=== PATIENT | male | born 1935 | race Caucasian/White ===

== ENCOUNTER 2019-03-25 10:05 | Emergency (ER) | payer OTHER, SELFPAY ==
--- NOTE | ~2019-03-25 | XR_ITS ---
EXAMINATION: XR hip BI 2V w AP pelvis DATE: 03/25/2019 11:39 INDICATION: Hip pain. Fall. TECHNIQUE: An anteroposterior view of the pelvis and 2 views of each hip were obtained. COMPARISON: Right hip radiograph 08/18/2016 FINDINGS: There is levoscoliosis and severe spondylosis of lumbar spine. No fracture. There is modera te osteoarthritis of the hips. IMPRESSION: 1. Moderate osteoarthritis of the hips. Reviewed, dictated and finalized at location A. RV[employer]
--- NOTE | ~2019-03-25 | XR_ITS ---
EXAMINATION: XR knee LT 3V DATE: 03/25/2019 11:39 INDICATION: Left knee pain. Fall. TECHNIQUE: 3 views of left knee were obtained. COMPARISON: Left knee radiographs 09/13/2018 FINDINGS: Bone alignment is normal. No fracture. There is severe osteoarthritis of medial compartment and moderate osteoarthritis of lateral and patellofemoral compartments. There is a moderate-sized kn ee joint effusion. IMPRESSION: 1. Severe left knee osteoarthritis. 2. Moderate-sized left knee joint effusion. Reviewed, dictated and finalized at location A. RMATION TECHNOLOGY DIRECTOR
--- NOTE | ~2019-03-25 | XR_ITS ---
EXAMINATION: XR chest 2V EXAM DATE: 03/25/2019 11:39 INDICATION: Multiple falls. Weakness. Pain. TECHNIQUE: Frontal and lateral projections of the chest obtained and reviewed. Comparison is made to prior examination from 08/21/2018. FINDINGS: Sternotomy wires are present without findings to suggest sternal dehiscence. Mild cardiome [place]. There is pulmonary vascular congestion. There is no pneumothorax suspected. There is aortic art erial sclerosis. There are bony degenerative changes. IMPRESSION: Cardiomegaly, pulmonary vascular congestion. Reviewed, dictated and finalized at location B. AL RIDE ATTENDANT
--- NOTE | ~2019-03-25 | CT_ITS ---
EXAMINATION: CT abdomen pelvis w con EXAM DATE: 03/25/2019 14:14 INDICATION: Left lower quadrant pain. Fall. Urinary tract infection. TECHNIQUE: Spiral CT of the abdomen and pelvis was performed following intravenous injection of 100 m L Omnipaque 350. Axial, coronal and sagittal images were reviewed. The dose-length product (DLP) fo r this examination was 1035.23 mGy-cm. The exposure was tailored according to patient size (auto mA exposure control), and iterative reconstruction (ASIR) was used as additional dose reduction techniqu e. There is no prior study for comparison. FINDINGS: There is colonic interposition. There is heterogeneous 4 cm left adrenal mass, indetermina te. Gallbladder is unremarkable. No biliary obstruction. Portal and splenic veins are patent. Kid neys enhance symmetrically. There is no hydronephrosis. Bilateral renal cysts largest off the lower pole of the right kidney measuring 5 cm. The prostate is unremarkable. The bladder is unremarkable. There is no retroperitoneal or pelvic lymphadenopathy. There is moderate scattered arteriosclerot ic disease. The appendix is normal. The stomach and small bowel are unremarkable. There is moderate amount of c olonic stool. No free intraperitoneal gas. The heart is normal in size. There are no pericardial or pleural effusions. Small amount of bibasilar atelectasis or pneumonia. There are sternotomy wire s. There are left 10th-12th rib fractures posterolaterally, probably subacute but check for point te nderness. IMPRESSION: 1. No acute intra-abdominal findings. 2. Mild bibasilar atelectasis or possibly pneumonia. 3. Left adrenal 4 cm heterogeneous mass; recommend MRI for further evaluation if no contraindication . 4. Left 10th-12 acute nondisplaced rib fractures, could be subacute but check for point tenderness. Reviewed, dictated and finalized at location B. OW PROCESSOR IMPRESSION: 1. No acute intra-abdominal findings. 2. Mild bibasilar atelectasis or possibly pneumonia. 3. Left adrenal 4 cm heterogeneous mass; recommend MRI for further evaluation if no contraindication. 4. Left 10th-12 acute nondisplaced rib fractures, could be subacute but check for point tenderness.
[2019-03-25 10:29] VITALS: BP 118/73; PULSE 85; RESP 16; TEMP 36.7; O2SAT 98
--- NOTE | 2019-03-25 10:45 | ED.GENADULT ---
HPI - General Adult General Chief complaint: Unspecified <Monica Ceballos PA-C - Last Filed: 03/25/19 16:59> Stated complaint: PAIN AFTER FALL <Monica Ceballos PA-C - Last Filed: 03/25/19 16:59> Time Seen by Provider: 03/25/19 10:21 <Monica Ceballos PA-C - Last Filed: 03/25/19 16:59> Source: patient and family <JAMES Silva Last Filed: 03/25/19 16:59> Mode of arrival: wheelchair <JAMES Silva Last Filed: 03/25/19 16:59> Limitations: no limitations <JAMES Silva Last Filed: 03/25/19 16:59> History of Present Illness HPI narrative: This is a 83 year old male that presents to the ER after a fall today. Patient reports he had just gotten dressed and stood up to walk out of the room. Reports he lost his balance and fell onto his left knee. Reports since he has had left knee pain and bilateral hip pain. Son reports that patient frequently gets UTIs that cause him to be unsteady. Reports he frequently falls. He lives at home alone, but has family that check in on him often. Patient reports some LLQ abdominal pain that has been intermittent for the last couple weeks. Denies hitting his head, loss of consciousness, fever, chest pain, shortness of breath, vomiting, vision changes, numbness or weakness. <Monica Ceballos PA-C - Last Filed: 03/25/19 16:59> Related Data Home medications: Home Medications Medication Instructions Recorded Confirmed atenolol 25 mg tablet 25 mg PO DAILY 12/27/18 atorvastatin 10 mg tablet 10 mg PO DAILY 12/27/18 diltiazem HCl 60 mg 60 mg PO BID 12/27/18 capsule,extended release 12 hr losartan 50 mg-hydrochlorothiazide 1 tablet PO DAILY 12/27/18 12.5 mg tablet metformin 500 mg tablet 500 mg PO DAILY 12/27/18 omeprazole 10 mg capsule,delayed 10 mg PO DAILY 12/27/18 release oxybutynin chloride 5 mg tablet 5 mg PO DAILY 12/27/18 furosemide 20 mg tablet 20 mg PO QAM 01/07/19 atenolol 50 mg tablet 50 mg PO DAILY 01/10/19 diclofenac sodium 1 % topical gel 2 gm TOPICAL QID 01/10/19 diltiazem HCl 240 mg 240 mg PO DAILY 01/10/19 capsule,extended release 24 hr, controlled fluticasone propionate 50 2 spray NASAL DAILY 01/10/19 mcg/actuation nasal spray,suspension lancets #50 each 01/10/19 loratadine 10 mg tablet 10 mg PO DAILY 01/10/19 <Monica Ceballos PA-C - Last Filed: 03/25/19 16:59> Allergies/adverse reactions: Allergies Allergy/AdvReac Type Severity Reaction Status Date / Time Penicillins Allergy Unknown unknown Verified 03/25/19 10:32 Sulfa (Sulfonamide Allergy Unknown Unknown Verified 03/25/19 10:32 Antibiotics) sulfanilamide Allergy Unknown Unknown Verified 03/25/19 10:32 nitrofurantoin AdvReac Hallucinati Verified 03/25/19 10:32 ng <Monica Ceballos PA-C - Last Filed: 03/25/19 16:59> Review of Systems Review of Systems: Narrative: CONSTITUTIONAL: Denies fever CARDIOVASCULAR: Denies chest pain RESPIRATORY: Denies dyspnea. GASTROINTESTINAL: Reports abdominal pain. Denies nausea, vomiting, or diarrhea. GENITOURINARY: Denies dysuria or hematuria. MUSCULOSKELETAL: Reports joint pain and myalgia. Denies back pain NEUROLOGIC: Denies headache, numbness, or weakness. <Monica Ceballos PA-C - Last Filed: 03/25/19 16:59> All systems reviewed & are unremarkable except as noted in HPI and below <Monica Ceballos PA-C - Last Filed: 03/25/19 16:59> [facility] Past Medical History Medical History: Medical History (Updated 03/25/19 @ 16:53 by Monica Ceballos PA-C) Altered mental status Anemia Bilateral knee pain Degenerative joint disease of knee Dizziness Fracture of thumb, right, closed Frequent falls Gait instability Hypokalemia Old [place] (myocardial infarction) Pain of left thumb UTI (urinary tract infection) <Monica Ceballos PA-C - Last Filed: 03/25/19 16:59> Surgical History Surgical History: Surgical History (Reviewed 02/21/19 @ 08:55 by Lorena Blanco
[2019-03-25 11:00] LABS: Basophils Absolute Auto 0.1 K/mm3 (0.0-0.1); Basophils Percent Auto 0.8 % (0.2-1.2); Eosinophils Absolute Auto 0.1 K/mm3 (0-0.3); Hematocrit 37.2 % (42.0-52.0); Immature Granulocyte Absolute 0.03 K/mm3 (0.00-0.031); Immature Granulocyte Percent A 0.4 % (0-0.5); Lymphocytes Absolute Auto 0.51 K/mm3 (0.9-3.2); Mean Corpuscular HGB Conc 32.3 g/dl (32-36); Mean Corpuscular Hemoglobin 28.6 pg (26-34); Mean Corpuscular Volume 88.6 fl (80-100); Mean Platelet Volume 8.7 fl (7.4-10.4); Monocytes Absolute Auto 0.6 K/mm3 (0.1-0.6); Monocytes Percent Auto 7.8 % (2.6-8.5); Neutrophils Absolute Auto 6.1 K/mm3 (1.3-6.7); Platelet Count Result 301 k/mm3 (150-375); Red Cell Distribution Width 14.6 % (11.5-14.5); White Blood Count 7.3 K/mm3 (4.5-10.0)
[2019-03-25 11:15] LABS: Alanine Aminotransferase 13 U/L (4-50); Albumin Level 3.6 g/dL (3.5-5.1); Alkaline Phosphatase 146 U/L (38-126); Aspartate Amino Transferase 21 U/L (17-59); Bilirubin,Total 0.8 mg/dL (0.2-1.3); Blood Urea Nitrogen 21 mg/dL (9-20); Calcium 9.3 mg/dL (8.4-10.2); Carbon Dioxide 31 mmol/L (22-30); Chloride 96 mmol/L (98-107); Estimated CRCL calculation 47 ml/min; Estimated Glomerular Filt Rate 58; Glucose 160 mg/dL (75-110); Potassium 4.1 mmol/L (3.4-5.0); Sodium 136 mmol/L (137-145)
[2019-03-25 12:00] VITALS: BP 142/90; PULSE 82; RESP 16; O2SAT 98
[2019-03-25 12:42] LABS: Add Urine Microscopic? YES; Appearance Urine Clear (Clear); Bacteria Urine 1+ /hpf; Bilirubin Urine Negative (Negative); Blood Urine 1+ (Negative); Color Urine Yellow (Yellow); Glucose Urine UA Negative (Negative); Ketones Urine Negative (Negative); Leukocyte Esterase Ur 1+ LEU/UL (Negative); Mucus Urine Rare /lpf; Nitrate Urine Negative (Negative); Protein Urine 1+ mg/dL (Negative); Specific Grav Ur 1.014 (1.001-1.035); Squamous Epithelial Cell Urine Few /hpf (Few)
[2019-03-25 13:10] VITALS: BP 124/74; PULSE 78; RESP 18; O2SAT 98
[2019-03-25] MEDS: LIDOCAINE HCL 2% GEL UROJET 10 ML PKG (13:13)
[2019-03-25 15:30] VITALS: BP 118/84; PULSE 82; RESP 16; O2SAT 97
== END 2019-03-25 17:10 | disposition home or self-care (01) ==
PROVIDERS: Physician Assistant; Emergency Provider General Practice; PCP Family Medicine
DX: M25.562 Pain in left knee (principal); M25.552 Pain in left hip; M25.551 Pain in right hip; R29.6 Repeated falls; Z87.440 Personal history of urinary (tract) infections; E27.8 Other specified disorders of adrenal gland; M16.0 Bilateral primary osteoarthritis of hip; M17.12 Unilateral primary osteoarthritis, left knee; R09.89 Other specified symptoms and signs involving the circulatory and respiratory systems; I51.7 Cardiomegaly; R91.8 Other nonspecific abnormal finding of lung field; I25.2 Old myocardial infarction; Z95.1 Presence of aortocoronary bypass graft; R82.998 Other abnormal findings in urine; W18.39XA Other fall on same level, initial encounter
CPT/HCPCS: 36415; 71046; 73521; 73562; 74177; 80053; 81001; 85025; 87077; 87086; 87088; 87186; 99284; Q9967

== ENCOUNTER 2019-08-15 14:24 | Outpatient (CLI) | payer OTHER, SELFPAY ==
[2019-08-15 14:58] LABS: Basophils Percent Auto 0.5 % (0.2-1.2); Eosinophils Absolute Auto 0.3 K/mm3 (0-0.3); Hematocrit 36.2 % (42.0-52.0); Hemoglobin 11.8 g/dL (14.0-18.0); Immature Granulocyte Absolute 0.04 K/mm3 (0.00-0.031); Immature Granulocyte Percent A 0.5 % (0-0.5); Lymphocytes Absolute Auto 1.03 K/mm3 (0.9-3.2); Lymphocytes Percent Auto 12.4 % (18.3-44.2); Mean Corpuscular HGB Conc 32.6 g/dl (32-36); Mean Corpuscular Hemoglobin 28.2 pg (26-34); Mean Corpuscular Volume 86.4 fl (80-100); Mean Platelet Volume 8.6 fl (7.4-10.4); Monocytes Absolute Auto 0.8 K/mm3 (0.1-0.6); Monocytes Percent Auto 9.7 % (2.6-8.5); Neutrophils Absolute Auto 6.2 K/mm3 (1.3-6.7); Neutrophils Percent Auto 73.9 % (45.5-73.1); Platelet Count Result 319 k/mm3 (150-375); Red Blood Count 4.19 M/mm3 (4.6-6.20); White Blood Count 8.3 K/mm3 (4.5-10.0)
[2019-08-15 15:17] LABS: Alanine Aminotransferase 13 U/L (4-50); Albumin Level 3.8 g/dL (3.5-5.1); Alkaline Phosphatase 175 U/L (38-126); Aspartate Amino Transferase 25 U/L (17-59); Bilirubin,Total 0.2 mg/dL (0.2-1.3); Blood Urea Nitrogen 26 mg/dL (9-20); Carbon Dioxide 30 mmol/L (22-30); Chloride 102 mmol/L (98-107); Estimated Glomerular Filt Rate 58; Glucose 88 mg/dL (75-110); Sodium 140 mmol/L (137-145)
[2019-08-15 15:24] LABS: Hemoglobin A1C 6.2 % (<5.7)
== END 2019-08-15 14:25 | disposition home or self-care (01) ==
PROVIDERS: PCP Family Medicine; Visit Provider Physician Assistant
DX: D64.9 Anemia, unspecified (principal); E11.9 Type 2 diabetes mellitus without complications
CPT/HCPCS: 36415; 80053; 83036; 85025

== ENCOUNTER 2019-08-23 10:42 | Outpatient (CLI) | payer OTHER, SELFPAY ==
[2019-08-23 11:17] LABS: Alanine Aminotransferase 11 U/L (4-50); Albumin Level 3.8 g/dL (3.5-5.1); Alkaline Phosphatase 154 U/L (38-126); Aspartate Amino Transferase 23 U/L (17-59); Bilirubin,Total 0.6 mg/dL (0.2-1.3); Blood Urea Nitrogen 23 mg/dL (9-20); Calcium 8.9 mg/dL (8.4-10.2); Carbon Dioxide 32 mmol/L (22-30); Chloride 103 mmol/L (98-107); Estimated Glomerular Filt Rate 45; Glucose 101 mg/dL (75-110); Potassium 4.7 mmol/L (3.4-5.0); Sodium 140 mmol/L (137-145)
[2019-08-23 11:47] LABS: Thyroid Stimulating Hormone 0.381 uIU/mL (0.465-4.680)
[2019-08-23 12:04] LABS: Vitamin D 25 Hydroxy 37.8 ng/mL
[2019-08-25 20:09] LABS: GGT 10 U/L (3-70)
== END 2019-08-23 10:43 | disposition home or self-care (01) ==
PROVIDERS: PCP Family Medicine; Visit Provider Physician Assistant
DX: R60.0 Localized edema (principal); R74.8 Abnormal levels of other serum enzymes; E55.9 Vitamin D deficiency, unspecified
CPT/HCPCS: 36415; 80053; 82306; 82977; 83970; 84443

== ENCOUNTER 2019-10-15 08:57 | Inpatient (IN) | payer OTHER, SELFPAY ==
--- NOTE | ~2019-10-15 | XR_ITS ---
EXAMINATION: XR knee RT min 4V DATE: 10/15/2019 09:26 INDICATION: Right knee pain TECHNIQUE: Four views of the right knee were obtained. COMPARISON: 09/13/2018 FINDINGS: Alignment is normal. No fracture or osteochondral lesion. There is advanced tricompartmenta l osteoarthritis without significant change. A moderate size joint effusion is present. Calcified ath erosclerosis is noted. IMPRESSION: 1. Advanced tricompartmental osteoarthritis and moderate size joint effusion without acute osseous ab normality. Reviewed, dictated and finalized at location A. IMPRESSION: 1. Advanced tricompartmental osteoarthritis and moderate size joint effusion wi thout acute osseous abnormality.
[2019-10-15 09:00] VITALS: BP 131/80; PULSE 87; RESP 16; TEMP 36.6; O2SAT 98
--- NOTE | 2019-10-15 09:10 | ED.LOWEXIN ---
HPI - Extremity Injury (Lower) General Chief Complaint: Extremity Injury, Lower Stated Complaint: right knee pain History of Present Illness HPI Narrative: Long history of bilateral knee pain with known osteo arthritis. Pain on the right side increasing over the past few days, now severe. Unable to bear weight. Associated with swelling. Had arthrocentesis and steroid injection in February. No fever or injury History limited by hearing impairment. Related Data Home Medications Medication Instructions Recorded Confirmed trimethoprim 100 mg tablet 100 mg PO .qhs tablet 05/31/19 10/15/19 furosemide 20 mg PO DAILY 10/15/19 10/15/19 oxybutynin chloride 5 mg PO DAILY 10/15/19 10/15/19 Allergies Allergy/AdvReac Type Severity Reaction Status Date / Time Penicillins Allergy Unknown unknown Verified 10/15/19 09:25 sulfanilamide Allergy Unknown Unknown Verified 10/15/19 09:25 nitrofurantoin AdvReac Unknown Hallucinati Verified 10/15/19 09:25 ng Review of Systems Review of Systems: All systems reviewed & are unremarkable except as noted in HPI and below Constitutional: Constitutional: Denies fever(s) Cardiovascular: Cardiovascular: Denies chest pain Respiratory: Respiratory: Denies dyspnea Musculoskeletal: Musculoskeletal: Denies back pain Neurologic: Denies weakness [facility] Past Medical History Medical History Altered mental status Anemia Bilateral knee pain Degenerative joint disease of knee Dizziness Fracture of thumb, right, closed Frequent falls Gait instability Hypertension with heart disease Hypokalemia OAB (overactive bladder) Old [place] (myocardial infarction) Pain of left thumb Shingles UTI (urinary tract infection) Surgical History Surgical History History of coronary artery bypass graft Status post tendon repair Family History Family History Mother Family history of malignant neoplasm Sibling Family history of diabetes mellitus in first degree relative Father Family history of coronary artery disease Other Diabetes mellitus Social History Social History Smoking packs per day: 1.5 Smoking cigarettes per day: 30.0 Years smoked: 30 Smoking pack-years: 45.00 Smoking status: Former smoker Tobacco type: cigarettes Second hand tobacco smoke exposure: No Smoking end date: 02/23/77 Alcohol intake: unknown Substance use: never Substance use type: does not use Gender identity (if verbalized by the patient): Male Spiritual care concerns: No Exam Const: General: alert Orientation/consciousness: patient oriented x3 Other: Mild distress HENMT: Head: normal to inspection Resp: Effort & Inspection: normal respiratory effort Auscultation: clear to auscultation bilaterally Cardio: Rate: regular rate Rhythm: regular rhythm Skin: General skin exam: normal color Rashes: no rashes Wounds: no wounds Neuro: General: patient oriented x3, moves all extremities and no focal motor deficits Speech: normal speech Extrem: Other: Right knee warm and swollen with ballotable effusion Course Vital Signs Vital signs: Vital Signs Temperature 36.6 C 10/15/19 09:00 Pulse Rate 87 10/15/19 09:00 Respiratory Rate 16 10/15/19 09:00 Blood Pressure 131/80 10/15/19 09:00 Pulse Oximetry 98 10/15/19 09:00 Temperature 36.6 C 10/15/19 14:43 Pulse Rate 101 H 10/15/19 15:05 Respiratory Rate 20 10/15/19 15:05 Blood Pressure 143/71 H 10/15/19 15:05 Pulse Oximetry 98 10/15/19 15:05 Procedures Joint Aspiration/Injection Joint Asp./Inject. 1: Joint Aspiration Date: 10/15/19 Side of body: right Joint Aspirated: knee Skin Prep: Chlorhexidine Local Anesthetic: lidocaine 1% Amount of anest
[2019-10-15 12:44] LABS: Appearance Synovial Fluid Cloudy (Clear); Color Synovial Fluid Yellow (Colorless); Monocytes Synovial Fluid 2 %; Neutrophils Synovial Fluid 98 % (0-25); Source Synovial Fluid Synovial fluid
[2019-10-15 12:47] LABS: Crystals Synovial Fluid None Seen (None Seen)
[2019-10-15 13:39] LABS: Basophils Percent Auto 0.3 % (0.2-1.2); Eosinophils Percent Auto 0.1 % (0-4.4); Hemoglobin 12.5 g/dL (14.0-18.0); Immature Granulocyte Absolute 0.04 K/mm3 (0.00-0.031); Immature Granulocyte Percent A 0.4 % (0-0.5); Lymphocytes Absolute Auto 0.56 K/mm3 (0.9-3.2); Lymphocytes Percent Auto 5.9 % (18.3-44.2); Mean Corpuscular HGB Conc 33.8 g/dl (32-36); Mean Corpuscular Hemoglobin 29.6 pg (26-34); Mean Corpuscular Volume 87.7 fl (80-100); Mean Platelet Volume 8.6 fl (7.4-10.4); Monocytes Absolute Auto 1.2 K/mm3 (0.1-0.6); Monocytes Percent Auto 12.4 % (2.6-8.5); Neutrophils Absolute Auto 7.7 K/mm3 (1.3-6.7); Neutrophils Percent Auto 80.9 % (45.5-73.1); Platelet Count Result 263 k/mm3 (150-375); Red Blood Count 4.22 M/mm3 (4.6-6.20); Red Cell Distribution Width 14.7 % (11.5-14.5); White Blood Count 9.5 K/mm3 (4.5-10.0)
[2019-10-15 13:49] LABS: INR 1.3
[2019-10-15 13:50] LABS: Anion Gap 6 mmol/L (8-16); Blood Urea Nitrogen 16 mg/dL (9-20); Calcium 8.5 mg/dL (8.4-10.2); Carbon Dioxide 28 mmol/L (22-30); Chloride 100 mmol/L (98-107); Estimated CRCL calculation 59 ml/min; Estimated Glomerular Filt Rate > 60; Glucose 101 mg/dL (75-110); Partial Thromboplastin Time 32.8 SECONDS (22.3-36.8); Potassium 4.3 mmol/L (3.4-5.0); Sodium 134 mmol/L (137-145)
[2019-10-15 13:53] LABS: CRP 4.7 mg/dL (<1.0)
[2019-10-15 14:15] LABS: Erythrocyte Sedimentation Rate 32 mm/hr (0-20)
[2019-10-15 14:43] VITALS: BP 143/71; PULSE 93; RESP 20; TEMP 36.6; O2SAT 97
[2019-10-15 15:05] VITALS: BP 143/71; PULSE 101; RESP 20; O2SAT 98
--- NOTE | 2019-10-15 15:59 | ADMGEN ---
This patient, Jose Angel Story Jr., was admitted to 3 [facility] Surg Room 307-01 at 1539. Patient/family oriented to hospital policies and general routines including ID bracelet, bed and alarms, visiting hours, pain management, procedures, bathroom and other care routines, personal items, smoking policy, room service/diet, and visiting hours. Valuables list has been completed. Information on how to activate the Rapid Response Team has been discussed. Patient/Family are encouraged to report perceived risks to care and to ask questions if they do not understand what they are told or what they should do.
[2019-10-15 16:00] VITALS: BP 132/78; PULSE 97; RESP 18; TEMP 36.6; O2SAT 96
[2019-10-15 16:04] VITALS: BMI 25.2
[2019-10-15] MEDS: MORPHINE SULFATE 4 MG/ML INJ IV PUSH (17:01)
[2019-10-15] MEDS: LACTATED RINGERS 1,000 ML 125 ML IV CONT (17:02)
--- NOTE | 2019-10-15 21:00 | PM.IMHP ---
H&P: HPI History of Present Illness Date/Time: 10/15/19 21:00 <Oneida Montejo PA-C - Last Filed: 10/16/19 00:17> Chief complaint: Right knee pain. <Oneida Montejo PA-C - Last Filed: 10/16/19 00:17> Narrative: Jose Angel Story Jr. is a very pleasant 84-year-old male, significantly hard of hearing, with a medical history to include coronary artery disease status post CABG, peripheral vascular disease, type 2 diabetes mellitus, and hypertension who presented to the emergency department earlier today from home for evaluation of right knee pain. For the past couple of days he reports the gradual onset of right knee swelling and pain, to the point where he could barely even bend his knee without exquisite pain. He has a difficult time describing the pain, but states that is worse with any movement and palpation. He gives no significant alleviating factors, however Frontier given in the emergency department has helped quite a bit. Apparently he has had similar symptoms in the past, on the left knee, it sounds as though he was treated for septic arthritis. He does not recall injuring the area and denies fever, chills, and sweats. No nausea or vomiting. No history of gout or venous thromboembolism. <Oneida Montejo PA-C - Last Filed: 10/16/19 00:17> Review of Systems Review of Systems: Narrative: Twelve systems were reviewed with pertinent positives and negatives as per HPI. He is very hard of hearing, and can hear best in his left ear. He does wear hearing aids. No recent cold or flu symptoms. He denies chest pain shortness of breath. No cough. No nausea, vomiting, or diarrhea. It sounds as though he has frequent urinary tract infections and is on prophylactic Bactrim at nighttime. He also reports nocturia and feelings of not always emptying his bladder. No dysuria. Except as documented, all other systems were reviewed and are negative. <Oneida Montejo PA-C - Last Filed: 10/16/19 00:17> [facility] Past Medical History Medical History: Medical History (Updated 10/16/19 @ 09:09 by Arsalan Jung MD) Chronic anemia Coronary artery disease Status post 2 vessel CABG in 1997. Degenerative joint disease of knee Essential hypertension Fracture of thumb, right, closed Frequent falls Frequent urinary tract infections On prophylactic Bactrim q.h.s. Gait instability Gastroesophageal reflux disease Hearing loss Hyperlipidemia Nephrolithiasis Osteoarthritis Osteoarthritis of right knee Overactive bladder Shingles Type 2 diabetes mellitus Hemoglobin A1c was 6.2% in July 2019. <Oneida Montejo PA-C - Last Filed: 10/16/19 00:17> Surgical History Surgical History: Surgical History History of coronary artery bypass graft Two vessel CABG in 1997. Status post tendon repair <Oneida Montejo PA-C - Last Filed: 10/16/19 00:17> Family History Family History: Family History Mother Family history of malignant neoplasm Sibling Family history of diabetes mellitus in first degree relative Father Family history of coronary artery disease Other Diabetes mellitus <Oneida Montejo PA-C - Last Filed: 10/16/19 00:17> Social History Social History: Social History Social History: Surrogate decision maker: Esha Story, daughter. Code status: Full code. Smoking packs per day: 1.5 Smoking cigarettes per day: 30.0 Years smoked: 30 Smoking pack-years: 45.00 Smoking status: Former smoker Tobacco type: cigarettes Second hand tobacco smoke exposure: No Smoking end date: 02/23/77 Alcohol intake: unknown Substance use: never Substance use type: does not use Additional living arrangements comments: Resides in [place] with his sister and daughter. Additional occupation/education comment
[2019-10-15 22:00] VITALS: BP 143/80; PULSE 90; RESP 18; TEMP 37.1; O2SAT 98
[2019-10-16 06:00] VITALS: BP 142/66; PULSE 98; RESP 18; TEMP 36.9; O2SAT 97
[2019-10-16 06:34] LABS: Hemoglobin 11.9 g/dL (14.0-18.0); Mean Corpuscular HGB Conc 33.1 g/dl (32-36); Mean Corpuscular Hemoglobin 28.8 pg (26-34); Mean Corpuscular Volume 87.2 fl (80-100); Mean Platelet Volume 8.9 fl (7.4-10.4); Platelet Count Result 268 k/mm3 (150-375); Red Blood Count 4.13 M/mm3 (4.6-6.20); Red Cell Distribution Width 14.9 % (11.5-14.5); White Blood Count 10.5 K/mm3 (4.5-10.0)
[2019-10-16 07:12] LABS: Alanine Aminotransferase 10 U/L (4-50); Albumin Level 3.1 g/dL (3.5-5.1); Alkaline Phosphatase 116 U/L (38-126); Anion Gap 8 mmol/L (8-16); Aspartate Amino Transferase 19 U/L (17-59); Bilirubin,Total 0.6 mg/dL (0.2-1.3); Blood Urea Nitrogen 15 mg/dL (9-20); Calcium 8.4 mg/dL (8.4-10.2); Carbon Dioxide 26 mmol/L (22-30); Chloride 97 mmol/L (98-107); Estimated CRCL calculation 62 ml/min; Estimated Glomerular Filt Rate > 60; Glucose 107 mg/dL (75-110); Sodium 131 mmol/L (137-145)
[2019-10-16] MEDS: PANTOPRAZOLE SOD SESQUIHYDRATE 20 MG TAB PO (08:03)
[2019-10-16] MEDS: FUROSEMIDE 20 MG TABLET PO (08:03)
[2019-10-16] MEDS: ATORVASTATIN 20 MG TABLET PO (08:03)
[2019-10-16 08:04] VITALS: PULSE 91
[2019-10-16] MEDS: atenoloL 50 MG TABLET PO (08:04)
[2019-10-16] MEDS: LORATADINE 10 MG TABLET PO (08:04)
[2019-10-16] MEDS: MORPHINE SULFATE 4 MG/ML INJ IV PUSH ×3 (08:18→20:50)
[2019-10-16 08:28] LABS: Glucose Point of Care 100 (65-105)
--- NOTE | 2019-10-16 09:00 | PM.CNOR ---
Assessment and Plan Assessment and plan (1) Effusion of right knee: Code(s): M25.461 - Effusion, right knee Status: Acute (2) Osteoarthritis of right knee: Qualifiers: Osteoarthritis type: primary Qualified Code(s): M17.11 - Unilateral primary osteoarthritis, right knee Code(s): M17.11 - Unilateral primary osteoarthritis, right knee Status: Chronic Assessment and Plan: 84-year-old male with chronic osteoarthritis in his right knee and acute effusion. With his permission and using sterile technique 40 cc of cloudy yellow fluid was removed. 120 mL syringe along with a purple two were sent down to the lab for a cell count. He tolerated the injection just fine . Band-Aid applied to the site . As of this morning, culture results are pending as is the path review for evidence of crystals. Uric acid will be ordered. He is currently on IV antibiotics until this is sorted out. The aspirate had more of a an inflammatory appearance to it rather than infectious. I will follow along. Thank you for the consultation. History of Present Illness HPI Consult date: 10/16/19 Consult reason: joint pain Chief complaint: Right knee pain. Narrative: 84-year-old male who is extremely hard of hearing. All today's communication was accomplished by writing on a piece of paper because his hearing aids do not appear to be functioning properly. Essentially he has had several day history of right knee pain and swelling. Does not recall an injury prior to the onset of this. History of similar issue in the left knee in the past by his report. Looking in the chart, looks like he had injections done in the [facility] office last December. This was for arthritis . He had an aspiration done in the emergency room yesterday. The cultures are pending on that. G stain was negative. The cell count was unable to be done because of a clotted specimen . Crystals reported by the lab to be negative. Pathology review pending. Review of Systems Constitutional: Constitutional: Reports no additional constitutional complaints Eyes: Eyes: Reports no additional eye complaints ENT: Reports system reviewed and no additional complaints, except as documented Cardiovascular: Cardiovascular: Denies chest pain at rest Respiratory: Respiratory: Reports no additional respiratory complaints Gastrointestinal: Gastrointestinal: Reports no additional gastrointestinal complaints Musculoskeletal: Musculoskeletal: Reports as per HPI Integumentary/Breasts: Skin/Breast: Reports system reviewed and no additional complaints, except as docu Neurologic: Reports as per HPI Endocrine: Endocrine: Denies excessive sweating Hematologic/Lymphatic: Hematologic/Lymphatic: Denies easy bleeding and Denies easy bruising [facility] Past Medical History Medical History Chronic anemia Coronary artery disease Status post 2 vessel CABG in 1997. Degenerative joint disease of knee Essential hypertension Fracture of thumb, right, closed Frequent falls Frequent urinary tract infections On prophylactic Bactrim q.h.s. Gait instability Gastroesophageal reflux disease Hearing loss Hyperlipidemia Nephrolithiasis Osteoarthritis Overactive bladder Shingles Type 2 diabetes mellitus Hemoglobin A1c was 6.2% in July 2019. Surgical History Surgical History History of coronary artery bypass graft Two vessel CABG in 1997. Status post tendon repair Family History Family History Mother Family history of malignant neoplasm Sibling Family history of diabetes mellitus in first degree relative Father Family history of coronary artery disease Other Diabetes mellitus Social History Social History Social History: Surrogate decision maker: Esha
[2019-10-16 09:36] LABS: Appearance Synovial Fluid Cloudy (Clear); Color Synovial Fluid Yellow (Colorless); Nucleated Cell Synovial Fluid 37567 /uL (0-200); RBC Synovial Fluid 93 /uL (0-0); Source Synovial Fluid Synovial fluid
[2019-10-16 09:58] LABS: Lymphocytes Synovial Fluid 1 %; Monocytes Synovial Fluid 5 %; Neutrophils Synovial Fluid 94 % (0-25)
[2019-10-16 12:44] LABS: Glucose Point of Care 143 (65-105)
[2019-10-16 14:00] VITALS: BP 118/52; PULSE 70; RESP 22; TEMP 36.8; O2SAT 95
[2019-10-16] MEDS: ONDANSETRON INJ 4 MG/2 ML VIAL IV PUSH (15:04)
--- NOTE | 2019-10-16 16:09 | PM.IMPN ---
Progress Note: A&P Assessment and Plan (1) Inflammatory arthritis: Code(s): M19.90 - Unspecified osteoarthritis, unspecified site Status: Acute Assessment and Plan: Cell count was inaccurate after the 1st tap. Second shows 37,000 nucleated cells 94% are neutrophils. Cultures no growth. Concern for septic arthritis. CRP 47. ESR 32. He is on trimethoprim which may blunt culture results. Pain is poorly controlled. Continue morphine as needed. He also has Tylenol and Williams available as well. Will give 1 dose of Ativan to see if this helps with muscle spasms and anxiety. And this is beneficial, we may add this as a prn. Appreciate ortho input. (2) Effusion of right knee: Code(s): M25.461 - Effusion, right knee Status: Acute Assessment and Plan: Right knee xray showing advanced tricompartmental osteoarthritis and moderate size joint effusion without acute osseous abnormality. He underwent arthrocetesis in the ED with removal of 40mL of fluid from the right knee. Arthrocentesis repeated today with removal of 40mL of cloudy yellow fluid. He was started on empiric antibiotics with Rocephin and vancomycin. (3) Type 2 diabetes mellitus: Code(s): E11.9 - Type 2 diabetes mellitus without complications Status: Acute Assessment and Plan: Recent A1c was 6.2%. Glucose reviewed on 10/15 Glucose well controlled. Continue to hold metformin while hospitalized. Continue Accu-Cheks covering with sliding scale insulin. Hypoglycemic protocol available as needed. (4) Essential hypertension: Code(s): I10 - Essential (primary) hypertension Status: Acute Assessment and Plan: Blood pressures reviewed on 10/16/19 BP well controlled. Continue Atenolol, diltiazem (5) CAD (coronary artery disease): Code(s): I25.10 - Atherosclerotic heart disease of [place] coronary artery without angina pectoris Status: Chronic Assessment and Plan: Patient with stable CAD. Not on ASA but on Atenolol and Lipitor. Mumtaz follow for now. Monitor for recurrent chest pain. Subjective Date/time seen: 10/16/19 16:09 Interval history: 84yo male with DM here for right knee pain. Patient is very hard and he is having significant amount of pain in both knees. He yells out in pain during my visit. RN states patient's pain has been well controlled until this afternoon when he was moved from the chair back to bed. He was just given pain medication. He is also complaining of left knee pain now. Hx difficult to obtain. He mentions chest pain but has trouble providing details and seems to be more chronic. Exam Narrative: Exam Narrative: AF 98.2 118/52 70 22 95% ra Gen - NARD but yells out and moans frequently Chest - Clear anteriorly, nml RR CV - RRR S1/S2 Abd - Soft, NT/ND, Positive BS Ext - No pedal edema; ice packs in place both knees Psych - uncomfortable Skin - Warm and dry; knees without significant warmth and no overlying erythema Objective Data Vital Signs Vital Signs: Vital Signs - 24 hr 10/15/19 22:00 10/16/19 06:00 10/16/19 08:04 Temperature 98.8 F 98.5 F Pulse Rate 90 98 91 Respiratory Rate 18 18 Blood Pressure 143/80 H 142/66 H Pulse Oximetry 98 97 10/16/19 14:00 Temperature 98.2 F Pulse Rate 70 Respiratory Rate 22 H Blood Pressure 118/52 L Pulse Oximetry 95 Intake/Output Intake/Output: Intake & Output 10/13/19 10/14/19 10/15/19 10/16/19 23:59 23:59 23:59 23:59 Intake Total 1200 Output Total 125 850 Balance -125 350 Meds/Results Medications: Active Medications Generic Name Dose Route Start Last Admin Trade Name Freq PRN Reason Stop Dose Admin Acetaminophen 650 mg 10/16/19 00:12 Tylenol
[2019-10-16 17:46] LABS: Glucose Point of Care 139 (65-105)
[2019-10-16] MEDS: TRIMETHOPRIM 100 MG TABLET PO (20:43)
[2019-10-16 22:00] VITALS: BP 126/62; PULSE 97; RESP 20; TEMP 37.3; O2SAT 96
[2019-10-17 01:26] LABS: Glucose Point of Care 123 (65-105)
[2019-10-17 06:00] VITALS: BP 103/51; PULSE 63; RESP 20; TEMP 36.8; O2SAT 98
[2019-10-17 07:06] LABS: Estimated CRCL calculation 56 ml/min; Estimated Glomerular Filt Rate > 60
[2019-10-17] MEDS: FUROSEMIDE 20 MG TABLET PO (08:41)
[2019-10-17] MEDS: LORATADINE 10 MG TABLET PO (08:41)
[2019-10-17] MEDS: ATORVASTATIN 20 MG TABLET PO (08:41)
[2019-10-17] MEDS: atenoloL 50 MG TABLET PO (08:41)
[2019-10-17] MEDS: PANTOPRAZOLE SOD SESQUIHYDRATE 20 MG TAB PO (08:41)
[2019-10-17 08:56] LABS: Glucose Point of Care 90 (65-105)
--- NOTE | 2019-10-17 12:35 | PM.IMPN ---
Progress Note: A&P Assessment and Plan (1) Inflammatory arthritis: Code(s): M19.90 - Unspecified osteoarthritis, unspecified site Status: Acute Assessment and Plan: Cell count was inaccurate after the 1st tap. Second shows 37,000 nucleated cells 94% are neutrophils. BCx NGTD. Many WBC but no organisms. Synovial cultures NGTD. CRP 47. ESR 32. He is on trimethoprim which may blunt culture results. Pain is better controlled today. Continue morphine as needed. He also has Tylenol and [place] available as well. Appreciate ortho input. Stop abx if Cx remain negative. (2) Effusion of right knee: Code(s): M25.461 - Effusion, right knee Status: Acute Assessment and Plan: Right knee xray showing advanced tricompartmental osteoarthritis and moderate size joint effusion without acute osseous abnormality. He underwent arthrocetesis in the ED (10/14) with removal of 40mL of fluid from the right knee. Arthrocentesis repeated 10/15 with removal of 40mL of cloudy yellow fluid. He was started on empiric antibiotics with Rocephin and vancomycin. As above. (3) Type 2 diabetes mellitus: Code(s): E11.9 - Type 2 diabetes mellitus without complications Status: Acute Assessment and Plan: Recent A1c was 6.2%. Glucose reviewed on 10/16 Glucose well controlled. Continue to hold metformin while hospitalized. Continue Accu-Cheks covering with sliding scale insulin. Hypoglycemic protocol available as needed. (4) Essential hypertension: Code(s): I10 - Essential (primary) hypertension Status: Acute Assessment and Plan: Blood pressures reviewed on 10/16 BP well controlled. Continue Atenolol, diltiazem. (5) CAD (coronary artery disease): Code(s): I25.10 - Atherosclerotic heart disease of [place] coronary artery without angina pectoris Status: Chronic Assessment and Plan: Patient with stable CAD. Not on ASA but on Atenolol and Lipitor. He states his CP is more positional. Will add aspirin. Continue to monitor. Subjective Date/time seen: 10/17/19 12:35 Interval history: 84yo male with DM here for right knee pain. Patient is very hard of hearing. No issues overnight. Patient eating well. No chest pain. Pain is better controlled today. He complains more of the left knee than the right at this time. Slept well last night Exam Narrative: Exam Narrative: AF 98.3 103/51 63 20 98% ra Gen - NARD sitting up in bed eating breakfast Chest - bibasilar inspiratory crackles otherwise clear. Normal respiratory rate CV - RRR S1/S2 Abd - Soft, NT/ND, Positive BS Ext - No pedal edema; ice packs in place both knees. Able to flex bilateral knees to about 140? under his own power Psych - normal mood and affect. Skin - Warm and dry; knees without significant warmth and no overlying erythema Objective Data Vital Signs Vital Signs: Vital Signs - 24 hr 10/16/19 14:00 10/16/19 22:00 10/17/19 06:00 Temperature 98.2 F 99.2 F 98.3 F Pulse Rate 70 97 63 Respiratory Rate 22 H 20 20 Blood Pressure 118/52 L 126/62 103/51 L Pulse Oximetry 95 96 98 Intake/Output Intake/Output: Intake & Output 10/14/19 10/15/19 10/16/19 10/17/19 23:59 23:59 23:59 23:59 Intake Total 2590 910 Output Total 125 1375 600 Balance -125 1215 310 Meds/Results Medications: Active Medications Generic Name Dose Route Start Last Admin Trade Name Freq PRN Reason Stop Dose Admin Acetaminophen 650 mg 10/16/19 00:12 Tylenol Tablet PO Q6H PRN Mild Pain (1-3) or Fever Hydrocodone Bitart/Acetaminophen 1 tab 10/16/19 00:12 10/17/19 08:41 [place] 5-325 Mg PO 1 tab Q6H PRN Administ
[2019-10-17 12:57] LABS: Glucose Point of Care 111 (65-105)
[2019-10-17 14:00] VITALS: BP 122/65; PULSE 86; RESP 18; TEMP 36.7; O2SAT 96
[2019-10-17 18:03] LABS: Glucose Point of Care 138 (65-105)
[2019-10-17] MEDS: MORPHINE SULFATE 4 MG/ML INJ IV PUSH (18:11)
[2019-10-17] MEDS: ASPIRIN 81 MG CHEWABLE TABLET PO (18:12)
[2019-10-17] MEDS: TRIMETHOPRIM 100 MG TABLET PO (20:53)
[2019-10-17] MEDS: ACETAMINOPHEN 325 MG TABLET 650 MG PO (20:58)
[2019-10-17 22:00] VITALS: BP 108/51; PULSE 75; RESP 18; TEMP 37.1; O2SAT 95
[2019-10-17 22:14] LABS: Glucose Point of Care 139 (65-105)
[2019-10-18] MEDS: MORPHINE SULFATE 4 MG/ML INJ IV PUSH (02:16)
[2019-10-18 06:00] VITALS: BP 109/53; PULSE 75; RESP 18; TEMP 36.7; O2SAT 95
[2019-10-18] MEDS: atenoloL 50 MG TABLET PO (09:11)
[2019-10-18] MEDS: LORATADINE 10 MG TABLET PO (09:11)
[2019-10-18] MEDS: PANTOPRAZOLE SOD SESQUIHYDRATE 20 MG TAB PO (09:11)
[2019-10-18] MEDS: ASPIRIN 81 MG CHEWABLE TABLET PO (09:11)
[2019-10-18] MEDS: FUROSEMIDE 20 MG TABLET PO (09:12)
[2019-10-18] MEDS: ATORVASTATIN 20 MG TABLET PO (09:12)
--- NOTE | 2019-10-18 11:44 | PM.PNORT ---
Progress Note: A&P Assessment and Plan (1) Primary osteoarthritis of both knees: Code(s): M17.0 - Bilateral primary osteoarthritis of knee Status: Chronic (2) Gout attack: Qualifiers: Gout site: knee Gout etiology: unspecified cause Laterality: unspecified laterality Qualified Code(s): M10.9 - Gout, unspecified Code(s): M10.9 - Gout, unspecified Status: Acute Assessment and Plan: 84-year-old male with CPPD crystals in his right knee. His left knee is now swollen. He has the same condition there. Both knees were aspirated today with his permission and using sterile technique removing about 10 cc of slightly cloudy fluid from the right and 40 cc of turbid fluid from the left also consistent with gout. Each knee was then injected intra-articularly with 3 cc 1% lidocaine and 20 mg of Kenalog apiece and without incident. Band-Aids were applied. Follow-up p.r.n.. Subjective Subjective Date/Time Seen: 10/18/19 11:44 Principal diagnosis: Symptomatic gout right knee Interval history: 84-year-old male who has got by laboratory studies gout in his right knee. His left knee is swollen in irritable as well. Exam Const: General: cooperative, no acute distress and alert Nutritional Appearance: other Orientation/consciousness: patient oriented x3 Limitations: physical limitations ( Extremely hard of hearing) HENMT: Head: normal to inspection Ears: hearing grossly normal bilaterally Face and sinus: face symmetric Mouth: Yes moist mucous membranes Eyes: Alignment and Position: alignment normal and position normal Sclera: sclerae normal Neck: Neck: normal visual inspection and nontender Chest: Chest palpation & inspection: normal inspection of the chest Resp: Effort & Inspection: normal respiratory effort and able to speak in complete sentences GI: Inspection: other ( nondistended) Skin: General skin exam: normal color Rashes: no rashes Neuro: General: patient oriented x3 Cognition (Neuro): normal cognition Speech: normal speech Gait exam (Neuro): Other gait observations present Sensory Exam: normal sensation Extrem: General: normal to inspection and other Other: Exam of both knees reveals effusion action little bit worse on the left side now than on the right. It irritability in both knees as they aretaken through range of motion. Psych: Appearance: grossly normal Mental Status: mental status grossly normal Objective Data Vital Signs Vital Signs: Vital Signs - 24 hr 10/17/19 14:00 10/17/19 22:00 10/18/19 06:00 Temperature 98.1 F 98.7 F 98.1 F Pulse Rate 86 75 75 Respiratory Rate 18 18 18 Blood Pressure 122/65 108/51 L 109/53 L Pulse Oximetry 96 95 95 Intake/Output Intake/Output: Intake & Output 10/15/19 10/16/19 10/17/19 10/18/19 23:59 23:59 23:59 23:59 Intake Total 2590 / 2590 2720 / 2720 790 / 790 Output Total 125 / 125 1375 / 1375 1425 / 1425 1650 / 1650 Balance -125 / -125 1215 / 1215 1295 / 1295 -860 / -860 Meds/Results Medications: Active Medications Generic Name Dose Route Start Last Admin Trade Name Freq PRN Reason Stop Dose Admin Acetaminophen 650 mg 10/16/19 00:12 10/17/19 20:58 Tylenol Tablet PO 650 mg Q6H PRN Administration Mild Pain (1-3) or Fever Hydrocodone Bitart/Acetaminophen 1 tab 10/16/19 00:12 10/18/19 10:39 [place] 5-325 Mg PO 1 tab Q6H PRN Administration Pain Rated 4-6 Aspirin 81 mg 10/17/19 12:45 10/18/19 09:11 Aspirin Chewable PO 81 mg DAILY@0800 HUGO Administration Atenolol 50 mg 10/16/19 09:00 10/18/19 09:11 Tenormin PO 50 mg DAILY HUGO Administration Atorvastatin Calcium 20 mg 10/16/19 09:00 10/18/19 09:12 Lipitor PO 20 mg DAILY HUGO Administration Dextrose 12.5 gm 10/16/19 00:14 Dextrose 50% Syringe IV PUSH PRN PRN Hypoglycemia Protocol Diltiazem HCl 240 mg 10/16/19 09:00 10/18/19 09:11 Cardizem Cd PO 240 mg DAILY
[2019-10-18] MEDS: LIDOCAINE HCL 1% LOCAL INJ 20 ML VIAL 10 ML INFILTRATE (12:10)
[2019-10-18] MEDS: TRIAMCINOLONE ACET INJ SUSP 50 MG/5 ML VIAL 10 MG IM (12:10)
[2019-10-18 13:47] LABS: Vancomycin Trough 10.1 ug/mL (10.0-20.0)
[2019-10-18 14:00] VITALS: BP 105/63; PULSE 75; RESP 18; TEMP 36.9; O2SAT 94
[2019-10-18 14:05] LABS: Glucose Point of Care 100 (65-105)
--- NOTE | 2019-10-18 17:19 | PM.IMPN ---
Progress Note: A&P Assessment and Plan (1) Inflammatory arthritis: Code(s): M19.90 - Unspecified osteoarthritis, unspecified site Status: Acute Assessment and Plan: Cell count was inaccurate after the 1st tap. Second shows 37,000 nucleated cells 94% are neutrophils compatible with inflammatory arthritis. Cultures no growth. . Pain is poorly controlled.. He also has Tylenol and [place] available as well. pathology on review did reveal our phosphate crystals compatible with pseudogout injected today poor Ortho (2) Effusion of right knee: Code(s): M25.461 - Effusion, right knee Status: Acute Assessment and Plan: Right knee xray showing advanced tricompartmental osteoarthritis and moderate size joint effusion without acute osseous abnormality. He underwent arthrocetesis in the ED with removal of 40mL of fluid from the right knee. Arthrocentesis repeated today with removal of 40mL of cloudy yellow fluid. from left knee and 10 mL from right and both injected with steroids (3) Type 2 diabetes mellitus: Code(s): E11.9 - Type 2 diabetes mellitus without complications Status: Acute Assessment and Plan: Recent A1c was 6.2%. Glucose reviewed on 10/17 Glucose well controlled. Continue to hold metformin while hospitalized. Continue Accu-Cheks covering with sliding scale insulin. Hypoglycemic protocol available as needed. (4) Essential hypertension: Code(s): I10 - Essential (primary) hypertension Status: Acute Assessment and Plan: Blood pressures reviewed on 10/18/19 BP well controlled. Continue Atenolol, diltiazem (5) CAD (coronary artery disease): Code(s): I25.10 - Atherosclerotic heart disease of [place] coronary artery without angina pectoris Status: Chronic Assessment and Plan: Patient with stable CAD. Not on ASA but on Atenolol and Lipitor. Mumtaz follow for now. Monitor for recurrent chest pain. Subjective Date/time seen: 10/18/19 17:19 Interval history: Date of vist 10/17 84yo male with DM here for right knee pain. Patient is very hard of hearing. No issues overnight. Patient eating well. No chest pain. Pain is better controlled today. He complains more of the left knee than the right at this time. Slept well last night Exam Narrative: Exam Narrative: AF 98.3 106/64 74 20 98% ra Gen - NARD sitting up in bed eating breakfast Chest - clear today. Normal respiratory rate CV - RRR S1/S2 Abd - Soft, NT/ND, Positive BS Ext - No pedal edema; . Able to flex bilateral knees to about 140? under his own power Psych - normal mood and affect. Skin - Warm and dry; knees without significant warmth and no overlying erythema Objective Data Vital Signs Vital Signs: Vital Signs - 24 hr 10/17/19 22:00 10/18/19 06:00 10/18/19 14:00 Temperature 37.1 C 36.7 C 36.9 C Pulse Rate 75 75 75 Respiratory Rate 18 18 18 Blood Pressure 108/51 L 109/53 L 105/63 Pulse Oximetry 95 95 94 Intake/Output Intake/Output: Intake & Output 10/15/19 10/16/19 10/17/19 10/18/19 23:59 23:59 23:59 23:59 Intake Total 2590 2720 910 Output Total 125 1375 1425 1650 Balance -125 1215 1295 -740 Meds/Results Medications: Active Medications Generic Name Dose Route Start Last Admin Trade Name Freq PRN Reason Stop Dose Admin Acetaminophen 650 mg 10/16/19 00:12 10/17/19 20:58 Tylenol Tablet PO 650 mg Q6H PRN Administration Mild Pain (1-3) or Fever Hydrocodone Bitart/Acetaminophen 1 tab 10/16/19 00:12 10/18/19 15:57 [place] 5-325 Mg PO 1 tab Q6H PRN Administration Pain Rated 4-6 Aspirin 81 mg 10/17/19 12:45 10/18/19 09:11 Aspirin Chewable PO 81 mg DAILY@0800 HUGO Administration Ate
[2019-10-18] MEDS: INSULIN ASPART (*BKC) 100 UNITS/ML SUB-Q (18:16)
[2019-10-18 19:45] VITALS: O2SAT 97
[2019-10-18 20:14] LABS: Glucose Point of Care 254 (65-105)
[2019-10-18] MEDS: TRIMETHOPRIM 100 MG TABLET PO (20:20)
[2019-10-18 22:00] VITALS: BP 109/55; PULSE 70; RESP 16; TEMP 36.3; O2SAT 97
[2019-10-19 00:24] LABS: Glucose Point of Care 196 (65-105)
[2019-10-19 06:00] VITALS: BP 124/64; PULSE 68; RESP 18; TEMP 36.2; O2SAT 100
[2019-10-19 06:49] LABS: Glucose Synovial Fluid <10 mg/dL
[2019-10-19] MEDS: LORATADINE 10 MG TABLET PO (08:44)
[2019-10-19] MEDS: FUROSEMIDE 20 MG TABLET PO (08:44)
[2019-10-19] MEDS: ATORVASTATIN 20 MG TABLET PO (08:44)
[2019-10-19] MEDS: atenoloL 50 MG TABLET PO (08:44)
[2019-10-19] MEDS: ASPIRIN 81 MG CHEWABLE TABLET PO (08:44)
[2019-10-19] MEDS: PANTOPRAZOLE SOD SESQUIHYDRATE 20 MG TAB PO (08:44)
--- NOTE | 2019-10-19 12:13 | PM.PNORT ---
Progress Note: A&P Assessment and Plan (1) Gout attack: Qualifiers: Gout site: knee Gout etiology: unspecified cause Laterality: unspecified laterality Qualified Code(s): M10.9 - Gout, unspecified Code(s): M10.9 - Gout, unspecified Status: Acute (2) Primary osteoarthritis of both knees: Code(s): M17.0 - Bilateral primary osteoarthritis of knee Status: Chronic Assessment and Plan: 84-year-old male doing better following aspiration and injection of his knees. He can follow up with me as an outpatient. Subjective Subjective Date/Time Seen: 10/19/19 12:13 Principal diagnosis: Gout flare in both knees Interval history: 84-year-old male who had both knees aspirated and injected yesterday. He is feeling much better today. Exam Extrem: Other: Only trace effusion in each knee. No irritability as they are taken through range of motion. Objective Data Vital Signs Vital Signs: Vital Signs - 24 hr 10/18/19 14:00 10/18/19 19:45 10/18/19 22:00 Temperature 98.5 F 97.3 F L Pulse Rate 75 70 Respiratory Rate 18 16 Blood Pressure 105/63 109/55 L Pulse Oximetry 94 97 97 10/19/19 06:00 Temperature 97.1 F L Pulse Rate 68 Respiratory Rate 18 Blood Pressure 124/64 Pulse Oximetry 100 Intake/Output Intake/Output: Intake & Output 10/16/19 10/17/19 10/18/19 10/19/19 23:59 23:59 23:59 23:59 Intake Total 2590 / 2590 2720 / 2720 1930 / 1930 200 / 200 Output Total 1375 / 1375 1425 / 1425 2250 / 2250 400 / 400 Balance 1215 / 1215 1295 / 1295 -320 / -320 -200 / -200 Meds/Results Medications: Active Medications Generic Name Dose Route Start Last Admin Trade Name Freq PRN Reason Stop Dose Admin Acetaminophen 650 mg 10/16/19 00:12 10/17/19 20:58 Tylenol Tablet PO 650 mg Q6H PRN Administration Mild Pain (1-3) or Fever Hydrocodone Bitart/Acetaminophen 1 tab 10/16/19 00:12 10/19/19 07:35 [place] 5-325 Mg PO 1 tab Q6H PRN Administration Pain Rated 4-6 Aspirin 81 mg 10/17/19 12:45 10/19/19 08:44 Aspirin Chewable PO 81 mg DAILY@0800 HUGO Administration Atenolol 50 mg 10/16/19 09:00 10/19/19 08:44 Tenormin PO 50 mg DAILY HUGO Administration Atorvastatin Calcium 20 mg 10/16/19 09:00 10/19/19 08:44 Lipitor PO 20 mg DAILY HUGO Administration Dextrose 12.5 gm 10/16/19 00:14 Dextrose 50% Syringe IV PUSH PRN PRN Hypoglycemia Protocol Diltiazem HCl 240 mg 10/16/19 09:00 10/19/19 08:44 Cardizem Cd PO 240 mg DAILY HUGO Administration Furosemide 20 mg 10/16/19 09:00 10/19/19 08:44 Lasix Tablet PO 20 mg DAILY HUGO Administration Glucagon 1 mg 10/16/19 00:14 Glucagon For Inj IM PRN PRN Hypoglycemia Protocol Glucose 15 gm 10/16/19 00:14 Glutose 15 PO PRN PRN Hypoglycemia Protocol Vancomycin HCl 1,500 mg in 500 mls @ 333.333 mls/hr 10/16/19 14:00 10/18/19 17:21 Vancomycin 1,500 Mg/D5w 500 Ml IVPB Infused Q24H HUGO Infusion Dextrose 1,000 mls @ 100 mls/hr 10/16/19 00:14 Dextrose 5% 1,000 Ml IVPB PRN PRN Hypoglycemia Protocol Ceftriaxone Sodium 2 gm in 100 mls @ 200 mls/hr 10/16/19 00:30 10/18/19 20:49 Rocephin 2 Gm/D5w 100 Ml IVPB Infused HS HUGO Infusion Insulin Aspart 2 - 5 units 10/16/19 08:00 10/19/19 08:59 Novolog SUB-Q Not Given TIDWM [facility] Protocol Loratadine 10 mg 10/16/19 09:00 10/19/19 08:44 Claritin PO 10 mg DAILY HUGO Administration Morphine Sulfate 4 mg 10/15/19 13:40 10/18/19 02:16 Morphine Sulfate Inj IV PUSH 4 mg Q2H PRN Administration Pain Rated 7-10 Ondansetron HCl 4 mg 10/16/19 14:50 10/16/19 15:04 Zofran Inj IV PUSH 4 mg Q6H PRN Administration Nausea And Vomiting Pantoprazole Sodium 20 mg 10/16/19 09:00 10/19/19 08:44 Protonix PO 20 mg QAM HUGO Administration Trimethoprim 100 mg 10/16/19 21:00 10/18/19 2
[2019-10-19 13:26] LABS: Glucose Point of Care 189 (65-105)
--- NOTE | 2019-10-19 18:30 | PM.DS ---
DS: Admitting Diagnosis Admitting Diagnosis Admitting Diagnosis: Inflamatory arthritis, R/O septic joint DS: Discharge Diagnosis Discharge Diagnosis (1) Inflammatory arthritis: Code(s): M19.90 - Unspecified osteoarthritis, unspecified site Status: Acute Assessment and Plan: Cell count was inaccurate after the 1st tap. Second shows 37,000 nucleated cells 94% are neutrophils compatible with inflammatory arthritis. Cultures no growth. . pain pretty much resolved after steroid injection by Ortho.. . pathology on review did reveal our phosphate crystals compatible with pseudogout injected by Ortho day before discharge (2) Effusion of right knee: Code(s): M25.461 - Effusion, right knee Status: Acute Assessment and Plan: Right knee xray showing advanced tricompartmental osteoarthritis and moderate size joint effusion without acute osseous abnormality. He underwent arthrocetesis in the ED with removal of 40mL of fluid from the right knee. Arthrocentesis repeated 10/17 with removal of 40mL of cloudy yellow fluid. from left knee and 10 mL from right and both injected with steroids with excellent results resolution of pain and able to ambulate (3) Type 2 diabetes mellitus: Code(s): E11.9 - Type 2 diabetes mellitus without complications Status: Acute Assessment and Plan: Recent A1c was 6.2%. Glucose reviewed on 10/17 Glucose well controlled. Continue to hold metformin while hospitalized. Continue Accu-Cheks covering with sliding scale insulin while inpatient (4) Essential hypertension: Code(s): I10 - Essential (primary) hypertension Status: Acute Assessment and Plan: Blood pressures reviewed on 10/19/19 BP well controlled. Continue Atenolol, diltiazem (5) CAD (coronary artery disease): Code(s): I25.10 - Atherosclerotic heart disease of [place] coronary artery without angina pectoris Status: Chronic Assessment and Plan: Patient with stable CAD. Not on ASA but on Atenolol and Lipitor. continue same meds on discharge DS: Summary Hospital Course Hospital Course: 84-year-old white male with known coronary disease and diabetes admitted with severe pain and swelling both knees unable to ambulate. initially felt to be possibly infectious and placed on antibiotics but aspiration and synovial fluid analysis revealed crystals compatible with pseudogout and negative cultures. ortho injected and aspirated both knees and patient had excellent results within 24 hours. He was up ambulating with PT and able to be discharged home Time Spent with Patient Time attestation: Total time spent providing and/or coordinating discharge services: 35 minutes Exam Narrative: Exam Narrative: condition on discharge blood pressure 124/64 pulse 68 sat 100% on room air lungs clear CV regular rate rhythm abdomen soft nontender extremities without edema knees are not erythematous or warm full range of motion actively and passively and ambulating with PT and walker with standby assist DS: Data Data Completed and Pending Labs on day of discharge: Labs from last 24 hours 10/19/19 10/19/19 10/18/19 13:23 00:18 18:14 POC Capillary Glucose 189 H 196 H 254 H Synovial Glucose 10/15/19 11:41 POC Capillary Glucose Synovial Glucose <10 L Preliminary micro results at discharge 10/15/19 11:41 Anaerobic Culture - Preliminary Synovial Fluid Right Knee Aerobic Culture - Preliminary 10/15/19 13:23 Blood Culture - Preliminary Blood 10/15/19 13:23 Blood Culture - Preliminary Blood Discharge Plan Discharge Attending physician on discharge: Suhail Hensley Consulting providers: Arsalan Jung Chr
== END 2019-10-19 15:40 | disposition home or self-care (01) | DRG 554 ==
LOC: ANHED 10:10 → ANH3MEDSUR 14:23
PROVIDERS: Internal Medicine; Orthopaedic Surgery; Physician Assistant; Admitting Provider Family Medicine; Emergency Provider Emergency Medicine; PCP Family Medicine; Visit Provider Internal Medicine
DX: M13.861 Other specified arthritis, right knee (principal); M25.461 Effusion, right knee; M13.862 Other specified arthritis, left knee; M10.9 Gout, unspecified; E11.51 Type 2 diabetes mellitus with diabetic peripheral angiopathy without gangrene; I25.10 Atherosclerotic heart disease of native coronary artery without angina pectoris; I10 Essential (primary) hypertension; E78.5 Hyperlipidemia, unspecified; H91.90 Unspecified hearing loss, unspecified ear; Z87.891 Personal history of nicotine dependence; Z79.84 Long term (current) use of oral hypoglycemic drugs; Z79.899 Other long term (current) drug therapy; Z88.0 Allergy status to penicillin; Z88.1 Allergy status to other antibiotic agents; Z88.2 Allergy status to sulfonamides; Z95.1 Presence of aortocoronary bypass graft
CPT/HCPCS: 36415; 73564; 80048; 80053; 80202; 82565; 82945; 84157; 85025; 85027; 85610; 85652; 85730; 86140; 87040; 87070; 87075; 87205; 88108; 89051; 89060; 96365; 96366; 96367; 96374; 96375; 96376; 97110; 97116; 97161; 97165; 97535; 99285; A9270; G0378; J0696; J1815; J2060; J2270; J2405; J3301; J3370; J7120; L0140

== ENCOUNTER 2019-10-21 16:14 | Emergency (ER) | payer OTHER, SELFPAY ==
[2019-10-21 17:03] VITALS: BP 124/78; PULSE 92; RESP 20; TEMP 37.1; O2SAT 97
[2019-10-21 17:24] LABS: Add Urine Microscopic? NO; Appearance Urine Clear (Clear); Bilirubin Urine Negative (Negative); Blood Urine Negative (Negative); Color Urine Yellow (Yellow); Glucose Urine UA Negative (Negative); Ketones Urine Negative (Negative); Leukocyte Esterase Ur Negative LEU/UL (Negative); Nitrate Urine Negative (Negative); Protein Urine Negative (Negative); Urobilinogen Urine Negative mg/dL (<2.0)
[2019-10-21 21:01] VITALS: BP 151/80; PULSE 79; RESP 29; TEMP 36.8; O2SAT 100
--- NOTE | 2019-10-21 21:08 | ED.MALEGU ---
HPI - Male Genitourinary General Chief complaint: Urogenital-Male Stated complaint: r/o UTI Time Seen by Provider: 10/21/19 21:08 History of Present Illness HPI Narrative: History is limited by hearing impairment and poor historian He reports that he recieved a call from his PCP saying that he may have a UTi and he needed to come to the hospital. He is not aware of anybody taking a urine sample. He does not know why they called. He does report urinary frequency and mild discomfort when he goes. No fever, flank pain, nausea, vomiting. Related Data Home Medications Medication Instructions Recorded Confirmed trimethoprim 100 mg tablet 100 mg PO .qhs tablet 05/31/19 10/15/19 furosemide 20 mg PO DAILY 10/15/19 10/15/19 oxybutynin chloride 5 mg PO DAILY 10/15/19 10/15/19 Allergies Allergy/AdvReac Type Severity Reaction Status Date / Time Penicillins Allergy Unknown unknown Verified 10/24/19 11:18 sulfanilamide Allergy Unknown Unknown Verified 10/24/19 11:18 nitrofurantoin AdvReac Unknown Hallucinati Verified 10/24/19 11:18 ng Review of Systems Review of Systems: All systems reviewed & are unremarkable except as noted in HPI and below Constitutional: Constitutional: Denies fever(s) Cardiovascular: Cardiovascular: Denies chest pain Respiratory: Respiratory: Denies dyspnea Gastrointestinal: Gastrointestinal: Denies abdominal pain, Denies nausea and Denies vomiting Genitourinary: Genitourinary: Denies hematuria, Reports dysuria and Reports urinary frequency Musculoskeletal: Musculoskeletal: Denies back pain Neurologic: Denies weakness [facility] Past Medical History Medical History Chronic anemia Coronary artery disease Status post 2 vessel CABG in 1997. Degenerative joint disease of knee Essential hypertension Fracture of thumb, right, closed Frequent falls Frequent urinary tract infections On prophylactic Bactrim q.h.s. Gait instability Gastroesophageal reflux disease Hearing loss Hyperlipidemia Nephrolithiasis Osteoarthritis Osteoarthritis of right knee Overactive bladder Primary osteoarthritis of both knees Shingles Type 2 diabetes mellitus Hemoglobin A1c was 6.2% in July 2019. Surgical History Surgical History History of coronary artery bypass graft Two vessel CABG in 1997. Status post tendon repair Family History Family History Mother Family history of malignant neoplasm Sibling Family history of diabetes mellitus in first degree relative Father Family history of coronary artery disease Other Diabetes mellitus Social History Social History Social History: Surrogate decision maker: Esha Story, daughter. Code status: Full code. Smoking packs per day: 1.5 Smoking cigarettes per day: 30.0 Years smoked: 30 Smoking pack-years: 45.00 Smoking status: Former smoker Tobacco type: cigarettes Second hand tobacco smoke exposure: No Smoking end date: 02/23/77 Alcohol intake: unknown Substance use: never Substance use type: does not use Additional living arrangements comments: Resides in [place] with his sister and daughter. 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 Gender identity (if verbalized by the patient): Male Spiritual care concerns: No Exam Const: General: no acute distress and alert Nutritional Appearance: well nourished HENMT: Head: normal to inspection Resp: Effort & Inspection: normal respiratory effort Auscultation: clear to auscultation bilaterally Cardio: Rate: regular rate Rhythm: regular rhythm GI: Inspection: non-distended GI Palp: Yes Soft to palpation : General: Yes Bladder palpation abnormal distended and tender Skin: General skin
[2019-10-21 22:33] VITALS: BP 154/95; PULSE 84; RESP 18; O2SAT 99
--- NOTE | 2019-10-21 22:36 | PC.NURSE ---
number b16 fry catheter inserted without difficulty, draining to gravity bag with plan to change to leg bag then discharge. Son/patient given care instructions
== END 2019-10-21 22:49 | disposition home or self-care (01) ==
PROVIDERS: Emergency Provider Emergency Medicine; PCP Family Medicine
DX: R33.9 Retention of urine, unspecified (principal); I25.10 Atherosclerotic heart disease of native coronary artery without angina pectoris; I10 Essential (primary) hypertension; E11.9 Type 2 diabetes mellitus without complications; K21.9 Gastro-esophageal reflux disease without esophagitis; E78.5 Hyperlipidemia, unspecified; M17.0 Bilateral primary osteoarthritis of knee; N32.81 Overactive bladder; Z95.1 Presence of aortocoronary bypass graft; Z87.442 Personal history of urinary calculi; Z87.891 Personal history of nicotine dependence; D64.9 Anemia, unspecified; Z79.84 Long term (current) use of oral hypoglycemic drugs
CPT/HCPCS: 51702; 81003; 99283

== ENCOUNTER 2019-10-24 10:59 | Emergency (ER) | payer OTHER, SELFPAY ==
--- NOTE | ~2019-10-24 | US_ITS ---
EXAMINATION: US renal BI DATE: 10/24/2019 13:48 INDICATION: Urinary retention TECHNIQUE: Multiple grayscale and Doppler ultrasound images of the kidneys were obtained. COMPARISON: 03/25/2020 FINDINGS: The right kidney measures 11.4 x 5.5 x 4.0 cm and contains multiple cysts which measure up to 5.5 cm. The left kidney measures 11.5 x 4.9 x 3.9 cm and contains multiple cysts measure up to 3.1 cm. The kidneys demonstrate normal parenchymal echogenicity. There is mild right hydroureteronephros is. The bladder is decompressed by Espino catheter. IMPRESSION: 1. Mild right hydroureteronephrosis. Reviewed, dictated and finalized at location A.
[2019-10-24 11:13] VITALS: BP 138/100; PULSE 75; RESP 16; TEMP 37; O2SAT 100
--- NOTE | 2019-10-24 11:27 | ED.MALEGU ---
HPI - Male Genitourinary General Chief complaint: Urogenital-Male Stated complaint: have my catheter removed Time Seen by Provider: 10/24/19 11:27 Source: patient and family Mode of arrival: ambulatory Limitations: no limitations History of Present Illness HPI Narrative: Patient is an 84-year-old male with a history of hypertension and diabetes who presents for evaluation of Espino catheter malfunction. Apparently the patient had a Espino catheter placed in the emergency department on October 20 for urinary retention, but the emergency physician working that day did not complete a note for this patient at this time. The patient was reporting that he had been diagnosed with urinary retention, a Espino catheter had been placed, but the catheter has had some leaking issues. No blood present. Patient has no abdominal pain. He denies fever, chills, vomiting. No blood coming from the catheter. Patient is wondering if the catheter can be removed. He does not have follow-up with a urologist. The patient's primary care physician sent him here for reassessment. Related Data Home Medications Medication Instructions Recorded Confirmed trimethoprim 100 mg tablet 100 mg PO .qhs tablet 05/31/19 10/15/19 furosemide 20 mg PO DAILY 10/15/19 10/15/19 oxybutynin chloride 5 mg PO DAILY 10/15/19 10/15/19 Allergies Allergy/AdvReac Type Severity Reaction Status Date / Time Penicillins Allergy Unknown unknown Verified 10/24/19 11:18 sulfanilamide Allergy Unknown Unknown Verified 10/24/19 11:18 nitrofurantoin AdvReac Unknown Hallucinati Verified 10/24/19 11:18 ng Review of Systems Review of Systems: Narrative: CONSTITUTIONAL: Denies fever CARDIOVASCULAR: Denies chest pain RESPIRATORY: Denies cough or dyspnea. GASTROINTESTINAL: Denies abdominal pain SKIN: Denies rash MUSCULOSKELETAL: Denies back pain NEUROLOGIC: Denies headache PMFSH Past Medical History Medical History Chronic anemia Coronary artery disease Status post 2 vessel CABG in 1997. Degenerative joint disease of knee Essential hypertension Fracture of thumb, right, closed Frequent falls Frequent urinary tract infections On prophylactic Bactrim q.h.s. Gait instability Gastroesophageal reflux disease Hearing loss Hyperlipidemia Nephrolithiasis Osteoarthritis Osteoarthritis of right knee Overactive bladder Primary osteoarthritis of both knees Shingles Type 2 diabetes mellitus Hemoglobin A1c was 6.2% in July 2019. Surgical History Surgical History History of coronary artery bypass graft Two vessel CABG in 1997. Status post tendon repair Family History Family History Mother Family history of malignant neoplasm Sibling Family history of diabetes mellitus in first degree relative Father Family history of coronary artery disease Other Diabetes mellitus Social History Social History Social History: Surrogate decision maker: Esha Story, daughter. Code status: Full code. Smoking packs per day: 1.5 Smoking cigarettes per day: 30.0 Years smoked: 30 Smoking pack-years: 45.00 Smoking status: Former smoker Tobacco type: cigarettes Second hand tobacco smoke exposure: No Smoking end date: 02/23/77 Alcohol intake: unknown Substance use: never Substance use type: does not use Additional living arrangements comments: Resides in [place] with his sister and daughter. 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 Gender identity (if verbalized by the patient): Male Spiritual care concerns: No Exam Narrative: Exam Narrative: GENERAL: Awake, alert, conversant HEAD: Normocephalic, atraumatic. EYES: PERRLA and EOMI. ENT: Nares clear, no rhinorrhea or epista
--- NOTE | 2019-10-24 12:31 | PC.NURSE ---
rn at bedside for education on fry catheter.
[2019-10-24 12:49] LABS: Anion Gap 7 mmol/L (8-16); Blood Urea Nitrogen 24 mg/dL (9-20); Calcium 8.4 mg/dL (8.4-10.2); Carbon Dioxide 26 mmol/L (22-30); Chloride 100 mmol/L (98-107); Estimated CRCL calculation 55 ml/min; Estimated Glomerular Filt Rate > 60; Glucose 92 mg/dL (75-110); Potassium 4.2 mmol/L (3.4-5.0); Sodium 133 mmol/L (137-145)
[2019-10-24 12:56] LABS: Add Urine Microscopic? YES; Appearance Urine Clear (Clear); Bacteria Urine Trace /hpf; Bilirubin Urine Negative (Negative); Blood Urine Negative (Negative); Color Urine Yellow (Yellow); Glucose Urine UA Negative (Negative); Ketones Urine Negative (Negative); Leukocyte Esterase Ur Trace LEU/UL (Negative); Mucus Urine Rare /lpf; Nitrate Urine Negative (Negative); Protein Urine Negative (Negative); Specific Grav Ur 1.018 (1.001-1.035); Urobilinogen Urine Negative mg/dL (<2.0); WBC Urine 0-3 /hpf
[2019-10-24 14:20] VITALS: BP 145/74; PULSE 99; RESP 20; TEMP 36.7; O2SAT 100
== END 2019-10-24 14:22 | disposition home or self-care (01) ==
PROVIDERS: Emergency Provider Emergency Medicine; PCP Family Medicine
DX: T83.011A Breakdown (mechanical) of indwelling urethral catheter, initial encounter (principal); D64.9 Anemia, unspecified; I25.10 Atherosclerotic heart disease of native coronary artery without angina pectoris; Z95.1 Presence of aortocoronary bypass graft; I10 Essential (primary) hypertension; R29.6 Repeated falls; Z87.440 Personal history of urinary (tract) infections; K21.9 Gastro-esophageal reflux disease without esophagitis; M19.90 Unspecified osteoarthritis, unspecified site; N32.81 Overactive bladder; M17.11 Unilateral primary osteoarthritis, right knee; E11.9 Type 2 diabetes mellitus without complications; N13.30 Unspecified hydronephrosis
CPT/HCPCS: 36415; 76775; 80048; 81001; 99284

== ENCOUNTER 2019-12-28 13:24 | Outpatient (CLI) | payer OTHER, SELFPAY ==
--- NOTE | ~2019-12-28 | US_ITS ---
EXAMINATION: US venous doppler [facility] DATE: 12/28/2019 12:09 INDICATION: Lower limb swelling TECHNIQUE: Grayscale ultrasound images without and with compression and Doppler ultrasound images of the bilateral lower extremity veins were obtained. COMPARISON: None. FINDINGS: The visualized portions of right common femoral vein, profunda (deep) femoral vein, femoral vein, pop liteal vein, posterior tibial veins, peroneal veins, gastrocnemius vein and greater saphenous vein ou tflow are patent. The visualized portions of left common femoral vein, profunda femoral vein, femoral vein, popliteal v ein, posterior tibial veins, peroneal veins, gastrocnemius vein and greater saphenous vein outflow ar e patent. 5.2 x 1.3 x 2.4 similar Cardenas cyst at the left popliteal fossa IMPRESSION: 1. No deep venous thrombosis in either lower limb. 2. Cardenas cyst at the left popliteal fossa. Reviewed, dictated and finalized at location A. [employer]
[2019-12-28 13:50] LABS: Basophils Absolute Auto 0.1 K/mm3 (0.0-0.1); Basophils Percent Auto 0.6 % (0.2-1.2); Eosinophils Absolute Auto 0.2 K/mm3 (0-0.3); Hematocrit 41.1 % (42.0-52.0); Hemoglobin 13.3 g/dL (14.0-18.0); Immature Granulocyte Absolute 0.05 K/mm3 (0.00-0.031); Immature Granulocyte Percent A 0.5 % (0-0.5); Lymphocytes Absolute Auto 1.43 K/mm3 (0.9-3.2); Lymphocytes Percent Auto 13.3 % (18.3-44.2); Mean Corpuscular HGB Conc 32.4 g/dl (32-36); Mean Corpuscular Hemoglobin 28.5 pg (26-34); Mean Corpuscular Volume 88.2 fl (80-100); Mean Platelet Volume 8.6 fl (7.4-10.4); Monocytes Absolute Auto 1.1 K/mm3 (0.1-0.6); Neutrophils Absolute Auto 7.9 K/mm3 (1.3-6.7); Neutrophils Percent Auto 73.6 % (45.5-73.1); Platelet Count Result 312 k/mm3 (150-375); Red Blood Count 4.66 M/mm3 (4.6-6.20); Red Cell Distribution Width 15.2 % (11.5-14.5); White Blood Count 10.8 K/mm3 (4.5-10.0)
[2019-12-28 14:02] LABS: Alanine Aminotransferase 17 U/L (4-50); Albumin Level 4.2 g/dL (3.5-5.1); Alkaline Phosphatase 160 U/L (38-126); Anion Gap 9 mmol/L (8-16); Aspartate Amino Transferase 37 U/L (17-59); Bilirubin,Total 0.8 mg/dL (0.2-1.3); Blood Urea Nitrogen 19 mg/dL (9-20); Calcium 9.3 mg/dL (8.4-10.2); Carbon Dioxide 30 mmol/L (22-30); Chloride 99 mmol/L (98-107); Estimated Glomerular Filt Rate 58; Glucose 83 mg/dL (75-110); Potassium 4.1 mmol/L (3.4-5.0); Sodium 138 mmol/L (137-145)
[2019-12-28 14:33] LABS: Thyroid Stimulating Hormone 0.425 uIU/mL (0.465-4.680)
== END 2019-12-28 13:25 | disposition home or self-care (01) ==
PROVIDERS: PCP Family Medicine; Visit Provider Physician Assistant
DX: R60.0 Localized edema (principal); L53.9 Erythematous condition, unspecified; I10 Essential (primary) hypertension; E11.9 Type 2 diabetes mellitus without complications; M19.90 Unspecified osteoarthritis, unspecified site
CPT/HCPCS: 36415; 80053; 84443; 85025; 93970

== ENCOUNTER 2020-01-12 15:20 | Outpatient (CLI) | payer OTHER, SELFPAY ==
[2020-01-12 16:48] LABS: Basophils Absolute Auto 0.1 K/mm3 (0.0-0.1); Basophils Percent Auto 0.8 % (0.2-1.2); Eosinophils Absolute Auto 0.3 K/mm3 (0-0.3); Eosinophils Percent Auto 2.8 % (0-4.4); Hemoglobin 13.1 g/dL (14.0-18.0); Immature Granulocyte Absolute 0.08 K/mm3 (0.00-0.031); Immature Granulocyte Percent A 0.9 % (0-0.5); Lymphocytes Absolute Auto 1.43 K/mm3 (0.9-3.2); Lymphocytes Percent Auto 15.5 % (18.3-44.2); Mean Corpuscular HGB Conc 32.8 g/dl (32-36); Mean Corpuscular Hemoglobin 29.1 pg (26-34); Mean Corpuscular Volume 88.9 fl (80-100); Mean Platelet Volume 8.8 fl (7.4-10.4); Monocytes Percent Auto 11.2 % (2.6-8.5); Neutrophils Absolute Auto 6.4 K/mm3 (1.3-6.7); Neutrophils Percent Auto 68.8 % (45.5-73.1); Platelet Count Result 362 k/mm3 (150-375); Red Cell Distribution Width 15.2 % (11.5-14.5); White Blood Count 9.2 K/mm3 (4.5-10.0)
[2020-01-12 16:50] LABS: Add Urine Microscopic? YES; Appearance Urine Clear (Clear); Bilirubin Urine Negative (Negative); Blood Urine 1+ (Negative); Color Urine Yellow (Yellow); Glucose Urine UA Negative (Negative); Ketones Urine Negative (Negative); Leukocyte Esterase Ur Negative LEU/UL (NEGATIVE); Mucus Urine Rare /lpf; Nitrate Urine Negative (Negative); Protein Urine 1+ mg/dL (Negative); RBC Urine 0-2 /hpf (0-2); Specific Grav Ur 1.015 (1.001-1.035); Squamous Epithelial Cell Urine Rare /hpf (Few); Urobilinogen Urine Negative mg/dL (<2.0); WBC Urine 0-3 /hpf (0-3)
[2020-01-12 16:53] LABS: Hemoglobin A1C 5.5 % (<5.7)
[2020-01-12 16:58] LABS: Alanine Aminotransferase 23 U/L (4-50); Alkaline Phosphatase 160 U/L (38-126); Anion Gap 8 mmol/L (8-16); Aspartate Amino Transferase 35 U/L (17-59); Bilirubin,Total 0.5 mg/dL (0.2-1.3); Blood Urea Nitrogen 22 mg/dL (9-20); Calcium 9.2 mg/dL (8.4-10.2); Carbon Dioxide 30 mmol/L (22-30); Chloride 98 mmol/L (98-107); Estimated Glomerular Filt Rate > 60; Glucose 92 mg/dL (75-110); Potassium 4.4 mmol/L (3.4-5.0); Sodium 136 mmol/L (137-145)
[2020-01-12 17:07] LABS: NT Pro B Type Natriuretic Pept 566 PG/ML (5-100)
== END 2020-01-12 15:21 | disposition home or self-care (01) ==
LOC: ANHLAB 15:22
PROVIDERS: PCP Family Medicine; Visit Provider Physician Assistant
DX: D64.9 Anemia, unspecified (principal); E11.9 Type 2 diabetes mellitus without complications; I50.9 Heart failure, unspecified; L03.90 Cellulitis, unspecified; N39.0 Urinary tract infection, site not specified; R41.82 Altered mental status, unspecified; R60.0 Localized edema
CPT/HCPCS: 36415; 80053; 81001; 83036; 83880; 85025; 87086

== ENCOUNTER 2020-03-06 11:03 | Outpatient (CLI) | payer OTHER, SELFPAY ==
[2020-03-06 11:33] LABS: Basophils Absolute Auto 0.1 K/mm3 (0.0-0.1); Basophils Percent Auto 0.7 % (0.2-1.2); Eosinophils Absolute Auto 0.1 K/mm3 (0-0.3); Hematocrit 40.5 % (42.0-52.0); Hemoglobin 13.4 g/dL (14.0-18.0); Immature Granulocyte Absolute 0.05 K/mm3 (0.00-0.031); Immature Granulocyte Percent A 0.6 % (0-0.5); Lymphocytes Absolute Auto 0.76 K/mm3 (0.9-3.2); Lymphocytes Percent Auto 8.7 % (18.3-44.2); Mean Corpuscular HGB Conc 33.1 g/dl (32-36); Mean Corpuscular Hemoglobin 28.9 pg (26-34); Mean Corpuscular Volume 87.5 fl (80-100); Mean Platelet Volume 8.5 fl (7.4-10.4); Monocytes Absolute Auto 0.8 K/mm3 (0.1-0.6); Monocytes Percent Auto 9.4 % (2.6-8.5); Neutrophils Absolute Auto 6.9 K/mm3 (1.3-6.7); Neutrophils Percent Auto 79.6 % (45.5-73.1); Platelet Count Result 295 k/mm3 (150-375); Red Blood Count 4.63 M/mm3 (4.6-6.20); Red Cell Distribution Width 14.8 % (11.5-14.5); White Blood Count 8.7 K/mm3 (4.5-10.0)
[2020-03-06 11:43] LABS: Hemoglobin A1C 5.8 % (<5.7)
[2020-03-06 11:44] LABS: Alanine Aminotransferase 15 U/L (4-50); Albumin Level 3.8 g/dL (3.5-5.1); Alkaline Phosphatase 152 U/L (38-126); Anion Gap 4 mmol/L (8-16); Aspartate Amino Transferase 26 U/L (17-59); Bilirubin,Total 0.6 mg/dL (0.2-1.3); Blood Urea Nitrogen 30 mg/dL (9-20); Calcium 9.1 mg/dL (8.4-10.2); Carbon Dioxide 32 mmol/L (22-30); Chloride 102 mmol/L (98-107); Cholesterol 111 mg/dL (0-200); Estimated Glomerular Filt Rate 48; Glucose 93 mg/dL (75-110); HDL Direct 42 mg/dL; Potassium 4.7 mmol/L (3.4-5.0); Sodium 138 mmol/L (137-145); Triglycerides 59 mg/dL (<150)
[2020-03-06 11:54] LABS: Add Urine Microscopic? YES; Appearance Urine Clear (Clear); Bilirubin Urine Negative (Negative); Blood Urine 1+ (Negative); Color Urine Yellow (Yellow); Glucose Urine UA Negative (Negative); Ketones Urine Negative (Negative); Leukocyte Esterase Ur Negative LEU/UL (NEGATIVE); Mucus Urine Rare /lpf; Nitrate Urine Negative (Negative); Protein Urine Negative (Negative); Specific Grav Ur 1.014 (1.001-1.035); Squamous Epithelial Cell Urine Few /hpf (Few); Urobilinogen Urine Negative mg/dL (<2.0); WBC Urine 0-3 /hpf (0-3)
[2020-03-06 11:55] LABS: LDL Cholesterol Direct 52 mg/dL
[2020-03-06 12:16] LABS: Prostate Specific Antigen 4.5 ng/mL (< OR = 4.0); Thyroid Stimulating Hormone 0.362 uIU/mL (0.465-4.680)
== END 2020-03-06 11:04 | disposition home or self-care (01) ==
PROVIDERS: PCP Family Medicine; Visit Provider Nurse Practitioner Family
DX: Z12.5 Encounter for screening for malignant neoplasm of prostate (principal); N39.0 Urinary tract infection, site not specified; E11.9 Type 2 diabetes mellitus without complications; D64.9 Anemia, unspecified; R79.89 Other specified abnormal findings of blood chemistry; R35.1 Nocturia; Z00.00 Encounter for general adult medical examination without abnormal findings
CPT/HCPCS: 36415; 80053; 80061; 81001; 83036; 84153; 84443; 85025; G0103

== ENCOUNTER 2020-06-06 09:57 | Emergency (ER) | payer OTHER, SELFPAY ==
--- NOTE | ~2020-06-06 | US_ITS ---
EXAMINATION: US venous doppler [facility] EXAM DATE: 06/06/2020 10:40 INDICATION: Left calf pain. TECHNIQUE: Multiple grayscale, color flow and Doppler images of the left lower extremity deep venous system were obtained and reviewed. Comparison is made to prior examination from 12/28/2019. FINDINGS: The left common femoral, femoral and profunda veins demonstrate normal color flow, respirat ory variation, augmentation and compressibility. Compressibility, color flow confirmed within the le ft popliteal, posterior tibial, peroneal, and greater saphenous veins. IMPRESSION: 1. No left lower extremity deep venous thrombosis. Reviewed, dictated and finalized at location A.
[2020-06-06 10:02] VITALS: BP 143/81; PULSE 65; RESP 22; TEMP 36.9; O2SAT 97
--- NOTE | 2020-06-06 10:17 | ED.LOWEXIN ---
HPI - Extremity Injury (Lower) General Chief Complaint: Extremity Injury, Lower Stated Complaint: left leg swelling Time Seen by Provider: 06/06/20 09:59 Source: RN notes reviewed History of Present Illness HPI Narrative: Patient presents to emergency department from home for leg swelling. Patient has a history of chronic lower extremity edema but states the left leg has been worse over the past several days. Patient notes he does have a wound over the left posterior leg and per the son this is where he crosses his legs when he sits patient notes mild erythema around this area he denies any fevers or chills, chest pain, shortness of breath or any other symptoms he does take Lasix on a daily basis which he has been taking Related Data Home Medications Medication Instructions Recorded Confirmed oxybutynin chloride 5 mg PO DAILY 10/15/19 02/28/20 furosemide 20 mg tablet 40 mg PO DAILY tablet 01/06/20 02/28/20 Allergies Allergy/AdvReac Type Severity Reaction Status Date / Time Penicillins Allergy Unknown unknown Verified 06/06/20 10:14 sulfanilamide Allergy Unknown Unknown Verified 06/06/20 10:14 nitrofurantoin AdvReac Unknown Hallucinati Verified 06/06/20 10:14 ng Review of Systems Review of Systems: Narrative: Gen.: Denies fevers or chills ENT: Denies congestion Respiratory: Denies shortness of breath or cough CV: Denies chest pain or palpitations GI: Denies abdominal pain nausea, emesis or diarrhea Musculoskeletal: Denies back pain or muscle pain reports lower extremity edema Neuro: Denies numbness, tingling, weakness or focal weakness Skin: Reports left leg wound Except as documented, all other systems reviewed and negative [facility] Past Medical History Medical History BMI 32.0-32.9,adult Chronic anemia Coronary artery disease Status post 2 vessel CABG in 1997. Degenerative joint disease of knee Essential hypertension Fracture of thumb, right, closed Frequent falls Frequent urinary tract infections On prophylactic Bactrim q.h.s. Gait instability Gastroesophageal reflux disease Hearing loss Hyperlipidemia Nephrolithiasis Osteoarthritis Osteoarthritis of right knee Overactive bladder Primary osteoarthritis of both knees Shingles Type 2 diabetes mellitus Hemoglobin A1c was 6.2% in July 2019. Surgical History Surgical History History of coronary artery bypass graft Two vessel CABG in 1997. Status post tendon repair Family History Family History Mother Family history of malignant neoplasm Sibling Family history of diabetes mellitus in first degree relative Father Family history of coronary artery disease Other Diabetes mellitus Social History Social History Social History: Surrogate decision maker: Esha Story, daughter. Code status: Full code. Smoking packs per day: 1.5 Smoking cigarettes per day: 30.0 Years smoked: 30 Smoking pack-years: 45.00 Smoking status: Former smoker Tobacco type: cigarettes Second hand tobacco smoke exposure: No Smoking end date: 02/23/77 Alcohol intake: unknown Substance use: never Substance use type: does not use Additional living arrangements comments: Resides in [place] with his sister and daughter. 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 Gender identity (if verbalized by the patient): Male Spiritual care concerns: No Exam Narrative: Exam Narrative: APPEARANCE: No acute distress, nontoxic, resting in bed EYES: EOMI HEENT: Normocephalic, atraumatic, OMM RESPIRATORY: No respiratory distress Clear to auscultation bilaterally with no rhonchi wheezing or rales. CARDIOVASCULAR: Regular rate and rhythm without murmurs rubs or gallops. ABDOMINAL: S
--- NOTE | 2020-06-06 10:18 | PC.NURSE ---
Pt off floor to US via cart
[2020-06-06 10:48] LABS: Basophils Percent Auto 0.5 % (0.2-1.2); Eosinophils Absolute Auto 0.1 K/mm3 (0-0.3); Eosinophils Percent Auto 1.7 % (0-4.4); Hematocrit 40.4 % (42.0-52.0); Hemoglobin 13.3 g/dL (14.0-18.0); Immature Granulocyte Absolute 0.07 K/mm3 (0.00-0.031); Immature Granulocyte Percent A 0.9 % (0-0.5); Lymphocytes Absolute Auto 0.74 K/mm3 (0.9-3.2); Lymphocytes Percent Auto 9.1 % (18.3-44.2); Mean Corpuscular HGB Conc 32.9 g/dl (32-36); Mean Corpuscular Hemoglobin 29.5 pg (26-34); Mean Corpuscular Volume 89.6 fl (80-100); Mean Platelet Volume 8.3 fl (7.4-10.4); Monocytes Percent Auto 12.1 % (2.6-8.5); Neutrophils Absolute Auto 6.2 K/mm3 (1.3-6.7); Neutrophils Percent Auto 75.7 % (45.5-73.1); Platelet Count Result 275 k/mm3 (150-375); Red Blood Count 4.51 M/mm3 (4.6-6.20); Red Cell Distribution Width 14.9 % (11.5-14.5); White Blood Count 8.1 K/mm3 (4.5-10.0)
[2020-06-06 10:59] LABS: INR 1.1; Prothrombin Time 14.5 Seconds (11.1-14.7)
[2020-06-06 11:00] LABS: Alanine Aminotransferase 13 U/L (4-50); Albumin Level 3.7 g/dL (3.5-5.1); Alkaline Phosphatase 151 U/L (38-126); Anion Gap 0 mmol/L (8-16); Aspartate Amino Transferase 24 U/L (17-59); Bilirubin,Total 0.6 mg/dL (0.2-1.3); Blood Urea Nitrogen 12 mg/dL (9-20); Calcium 8.7 mg/dL (8.4-10.2); Carbon Dioxide 37 mmol/L (22-30); Chloride 101 mmol/L (98-107); Estimated CRCL calculation 52 ml/min; Estimated Glomerular Filt Rate 58; Glucose 94 mg/dL (75-110); Partial Thromboplastin Time 29.6 SECONDS (22.3-36.8); Potassium 4.3 mmol/L (3.4-5.0); Sodium 138 mmol/L (137-145)
[2020-06-06 11:07] LABS: NT Pro B Type Natriuretic Pept 631 PG/ML (5-100)
[2020-06-06 12:39] LABS: Add Urine Microscopic? YES; Appearance Urine Clear (Clear); Bilirubin Urine Negative (Negative); Blood Urine 1+ (Negative); Color Urine Colorless (Yellow); Glucose Urine UA Negative (Negative); Ketones Urine Negative (Negative); Leukocyte Esterase Ur Negative LEU/UL (Negative); Nitrate Urine Negative (Negative); Protein Urine Negative (Negative); RBC Urine 0-2 /hpf (0-2); Specific Grav Ur 1.005 (1.001-1.035); Squamous Epithelial Cell Urine Rare /hpf (Few); Urobilinogen Urine Negative mg/dL (<2.0); WBC Urine 0-3 /hpf
[2020-06-06 13:37] VITALS: BP 155/93; PULSE 84; RESP 20; O2SAT 100
--- NOTE | 2020-06-06 13:45 | PC.NURSE ---
1330 L simpson weeping wound covered with Telabiodun miller coban per ED MD order. Pt's son will drive him home
[2020-06-06] MEDS: CLINDAMYCIN HCL 150 MG CAP 300 MG PO (13:49)
== END 2020-06-06 14:07 | disposition home or self-care (01) ==
PROVIDERS: Emergency Provider Emergency Medicine; PCP Family Medicine
DX: L03.116 Cellulitis of left lower limb (principal); R60.0 Localized edema; D64.9 Anemia, unspecified; I25.10 Atherosclerotic heart disease of native coronary artery without angina pectoris; I10 Essential (primary) hypertension; E11.9 Type 2 diabetes mellitus without complications; K21.9 Gastro-esophageal reflux disease without esophagitis; E78.5 Hyperlipidemia, unspecified; N32.81 Overactive bladder; M17.0 Bilateral primary osteoarthritis of knee; Z87.440 Personal history of urinary (tract) infections; Z87.442 Personal history of urinary calculi; Z95.1 Presence of aortocoronary bypass graft; Z87.891 Personal history of nicotine dependence
CPT/HCPCS: 36415; 80053; 81001; 83880; 85025; 85610; 85730; 93971; 99284; A9270

== ENCOUNTER 2020-06-19 13:25 | Outpatient (CLI) | payer OTHER, SELFPAY ==
[2020-06-19 14:32] LABS: Alanine Aminotransferase 26 U/L (4-50); Albumin Level 3.6 g/dL (3.5-5.1); Alkaline Phosphatase 139 U/L (38-126); Anion Gap 5 mmol/L (8-16); Aspartate Amino Transferase 32 U/L (17-59); Bilirubin,Total 0.2 mg/dL (0.2-1.3); Blood Urea Nitrogen 23 mg/dL (9-20); Calcium 8.8 mg/dL (8.4-10.2); Carbon Dioxide 29 mmol/L (22-30); Chloride 106 mmol/L (98-107); Estimated Glomerular Filt Rate 53; Glucose 104 mg/dL (75-110); Potassium 3.9 mmol/L (3.4-5.0); Sodium 140 mmol/L (137-145)
== END 2020-06-19 13:26 | disposition home or self-care (01) ==
PROVIDERS: PCP Family Medicine; Visit Provider Family Medicine
DX: E11.9 Type 2 diabetes mellitus without complications (principal); R60.9 Edema, unspecified
CPT/HCPCS: 36415; 80053; 83036

== ENCOUNTER 2020-07-10 06:15 | Emergency (ER) | payer OTHER, SELFPAY ==
[2020-07-10] VITALS (20 sets, daily range): BP systolic 126–161; BP diastolic 82–90; PULSE 85–100; RESP 17–27; TEMP 36.7; O2SAT 95–100
--- NOTE | ~2020-07-10 | CT_ITS ---
EXAMINATION: CT cervical spine wo con DATE: 07/10/2020 06:51 INDICATION: Neck pain. TECHNIQUE: Computed tomography (CT) of the cervical spine was performed without intravenous contrast. Automated exposure control and iterative reconstruction technique were employed. The dose-length pro duct was 549.15 mGy-cm. COMPARISON: None FINDINGS: There is a multinodular goiter involving left thyroid lobe that extends into the mediastinu m with nodules measuring up to 4.6 cm. The right thyroid lobe is absent. There is kyphosis of cervica l spine. There is 2 mm anterolisthesis of C4 on C5 and C7 on T1. There is interbody fusion at C5-C6 a nd C6-C7. There is mildly decreased disc height at C4-C5 and severely decreased disc height at C7-T1. The following disc levels are specifically discussed: C2-C3: There is mild bilateral uncovertebral joint osteoarthritis. There is severe bilateral facet yarelis int osteoarthritis. There is moderate bilateral neural foraminal stenosis. There is no central canal stenosis. C3-C4: There is severe bilateral uncovertebral joint osteoarthritis. There is severe bilateral facet joint osteoarthritis. There is severe bilateral neural foraminal stenosis. There is mild central jeffrey l stenosis. C4-C5: There is mild right and moderate left uncovertebral joint osteoarthritis. There is severe bila teral facet joint osteoarthritis. There is moderate bilateral neural foraminal stenosis. There is no central canal stenosis. C5-C6: There is mild bilateral uncovertebral joint hypertrophy. There is ankylosis of the facet joint s with mild hypertrophy. There is moderate bilateral neural foraminal stenosis. There is mild central canal stenosis. C6-C7: There is severe bilateral uncovertebral joint hypertrophy. There is ankylosis of the facet marc nts with moderate hypertrophy. There is moderate bilateral neural foraminal stenosis. There is mild c entral canal stenosis. C7-T1: There is mild bilateral uncovertebral joint osteoarthritis. There is severe bilateral facet yarelis int osteoarthritis. There is mild bilateral neural foraminal stenosis. There is no central canal sten osis. IMPRESSION: 1. No fracture. 2. Severe cervical spondylosis. 3. Anterior and posterior fusion from C5 to C7. 4. Cervical kyphosis. 5. Multinodular goiter. Given the patient's age, further evaluation is likely not needed. Reviewed, dictated and finalized at location A. IMPRESSION: 1. No fracture. 2. Severe cervical spondylosis. 3. Anterior and posterior fusion from C5 to C7. 4. Cervical kyphosis. 5. Multinodular goiter. Given the patient's age, further evaluation is likely n ot needed.
--- NOTE | ~2020-07-10 | CT_ITS ---
EXAMINATION: CT brain wo con DATE: 07/10/2020 07:58 INDICATION: Headache. TECHNIQUE: Computed tomography (CT) of the head was performed without intravenous contrast. The mA wa s adjusted according to patient size. Iterative reconstruction technique was employed. The dose-lengt h product was 605.33 mGy-cm. COMPARISON: None FINDINGS: There are scattered areas of low attenuation in the cerebral white matter. There is an old lacunar infarct in the right basal ganglia. There is no intracranial hemorrhage, acute infarction, or abnormal intracranial mass lesion. The ventricles are normal in size. The orbits are normal. The par anasal sinuses are clear. The mastoid air cells are normal. IMPRESSION: 1. Old lacunar infarct in the right basal ganglia. 2. Moderate nonspecific cerebral white matter disease, which likely represents chronic small vessel i schemic disease. Reviewed, dictated and finalized at location A. IMPRESSION: 1. Old lacunar infarct in the right basal ganglia. 2. Moderate nonspecific cerebral white matter disease, which likely represents chronic small vessel ischemic disease.
--- NOTE | 2020-07-10 07:03 | ED.NECK ---
HPI - Neck Pain/Injury General Chief Complaint: Neck Pain/Injury Stated Complaint: RODRIGUES/NECK PAIN Time Seen by Provider: 07/10/20 07:03 Source: patient, family and EMS Mode of arrival: EMS Limitations: other (hearing impairment, severe) History of Present Illness HPI Narrative: Patient is an 84-year-old male with a stay of hypertension, diabetes, recurrent UTI, who presents for evaluation of neck pain. Patient states that he awakened 2 days ago with neck stiffness after sleeping in a chair. Today he is experiencing throbbing, aching headache pain in the front of his head without vision changes, photophobia, nausea, vomiting or fever. Patient son felt that he was somewhat weak today. No recent falls or injury. Patient denies chest pain or abdominal pain. He denies focal weakness or numbness. He denies urinary symptoms. Patient states he has pain when moving his neck. No history of migraine headache. Related Data Home Medications Medication Instructions Recorded Confirmed oxybutynin chloride 5 mg PO DAILY 10/15/19 06/19/20 furosemide 20 mg tablet 40 mg PO DAILY tablet 01/06/20 06/19/20 Allergies Allergy/AdvReac Type Severity Reaction Status Date / Time Penicillins Allergy Unknown unknown Verified 07/10/20 06:22 sulfanilamide Allergy Unknown Unknown Verified 07/10/20 06:22 nitrofurantoin AdvReac Unknown Hallucinati Verified 07/10/20 06:22 ng Review of Systems Review of Systems: Narrative: CONSTITUTIONAL: Denies fever, chills, or sweats. EYES: Denies visual changes, redness, or discharge. ENT: Denies rhinorrhea, congestion, sore throat, or otalgia. CARDIOVASCULAR: Denies chest pain, palpitations, or edema. RESPIRATORY: Denies cough or dyspnea. GASTROINTESTINAL: Denies abdominal pain, nausea, vomiting, or diarrhea. GENITOURINARY: Denies dysuria or hematuria. SKIN: Denies rash or itching. MUSCULOSKELETAL: Denies back pain, joint pain, or myalgia. NEUROLOGIC: Reports headache without numbness, or weakness. [facility] Past Medical History Medical History BMI 32.0-32.9,adult Chronic anemia Coronary artery disease Status post 2 vessel CABG in 1997. Degenerative joint disease of knee Essential hypertension Fracture of thumb, right, closed Frequent falls Frequent urinary tract infections On prophylactic Bactrim q.h.s. Gait instability Gastroesophageal reflux disease Hearing loss Hyperlipidemia Nephrolithiasis Osteoarthritis Osteoarthritis of right knee Overactive bladder Primary osteoarthritis of both knees Shingles Type 2 diabetes mellitus Hemoglobin A1c was 6.2% in July 2019. Surgical History Surgical History History of coronary artery bypass graft Two vessel CABG in 1997. Status post tendon repair Family History Family History Mother Family history of malignant neoplasm Sibling Family history of diabetes mellitus in first degree relative Father Family history of coronary artery disease Other Diabetes mellitus Social History Social History Social History: Surrogate decision maker: Esha Story, daughter. Code status: Full code. Smoking packs per day: 1.5 Smoking cigarettes per day: 30.0 Years smoked: 30 Smoking pack-years: 45.00 Smoking status: Former smoker Tobacco type: cigarettes Second hand tobacco smoke exposure: No Smoking end date: 02/23/77 Alcohol intake: unknown Substance use: never Substance use type: does not use Additional living arrangements comments: Resides in [place] with his sister and daughter. 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 Gender identity (if verbalized by the patient): Male Spiritual care concerns: No Exam Narrative: Exam Narrative: GENERAL: Milena
--- NOTE | 2020-07-10 07:33 | ECG_ITS ---
Measurements Intervals [place] Rate: 100 P: -89 [place]: 121 QRS: -45 QRSD: 91 T: 90 QT: 368 QTc: 477 Interpretive Statements SINUS RHYTHM ATRIAL PREMATURE COMPLEX LEFT AXIS DEVIATION NONSPECIFIC T-WAVE ABNORMALITY- HIGH LATERAL LEADS BASELINE ARTIFACT- I, II, III, AVR, AVL, AVF, V2 BORDERLINE ECG Electronically Signed On 07-10-2020 8:51:01 CDT by Peter Cardoza D.O.
[2020-07-10] MEDS: ACETAMINOPHEN 500 MG TABLET 1000 MG PO (07:57)
[2020-07-10] MEDS: MAGNESIUM SULF 2 GM/WATER 50ML 2 GM/50 ML BAG IVPB (07:58)
[2020-07-10] MEDS: METOCLOPRAMIDE HCL INJ 10 MG/2 ML VIAL IV PUSH (07:58)
[2020-07-10 08:32] LABS: Basophils Absolute Auto 0.1 K/mm3 (0.0-0.1); Basophils Percent Auto 0.4 % (0.2-1.2); Eosinophils Percent Auto 0.1 % (0-4.4); Hematocrit 39.9 % (42.0-52.0); Hemoglobin 12.9 g/dL (14.0-18.0); Immature Granulocyte Absolute 0.07 K/mm3 (0.00-0.031); Immature Granulocyte Percent A 0.6 % (0-0.5); Lymphocytes Absolute Auto 0.51 K/mm3 (0.9-3.2); Lymphocytes Percent Auto 4.1 % (18.3-44.2); Mean Corpuscular HGB Conc 32.3 g/dl (32-36); Mean Corpuscular Hemoglobin 28.7 pg (26-34); Mean Corpuscular Volume 88.7 fl (80-100); Mean Platelet Volume 8.2 fl (7.4-10.4); Monocytes Absolute Auto 1.1 K/mm3 (0.1-0.6); Neutrophils Absolute Auto 10.7 K/mm3 (1.3-6.7); Neutrophils Percent Auto 85.8 % (45.5-73.1); Platelet Count Result 285 k/mm3 (150-375); White Blood Count 12.4 K/mm3 (4.5-10.0)
[2020-07-10 08:51] LABS: Anion Gap 5 mmol/L (8-16); Blood Urea Nitrogen 14 mg/dL (9-20); Calcium 9.1 mg/dL (8.4-10.2); Carbon Dioxide 30 mmol/L (22-30); Chloride 101 mmol/L (98-107); Estimated CRCL calculation 57 ml/min; Estimated Glomerular Filt Rate > 60; Glucose 136 mg/dL (75-110); Magnesium 2.4 mg/dL (1.6-2.3); Potassium 4.1 mmol/L (3.4-5.0); Sodium 136 mmol/L (137-145)
== END 2020-07-10 10:33 | disposition home or self-care (01) ==
PROVIDERS: Emergency Provider Emergency Medicine; PCP Family Medicine
DX: M43.6 Torticollis (principal); S16.1XXA Strain of muscle, fascia and tendon at neck level, initial encounter; R00.0 Tachycardia, unspecified; D64.9 Anemia, unspecified; I25.10 Atherosclerotic heart disease of native coronary artery without angina pectoris; I10 Essential (primary) hypertension; Z87.440 Personal history of urinary (tract) infections; K21.9 Gastro-esophageal reflux disease without esophagitis; E78.5 Hyperlipidemia, unspecified; M19.90 Unspecified osteoarthritis, unspecified site; E11.9 Type 2 diabetes mellitus without complications; X50.1XXA Overexertion from prolonged static or awkward postures, initial encounter
CPT/HCPCS: 36415; 70450; 72125; 80048; 83735; 85025; 93005; 96365; 96375; 99284; A9270; J1100; J2765; J3475

== ENCOUNTER → 2020-08-21 09:52 | Outpatient (CLI) | payer OTHER, SELFPAY ==
--- NOTE | ~2020-08-21 | XR_ITS ---
EXAMINATION: XR foot LT min 3V EXAM DATE: 08/21/2020 10:22 INDICATION: M79.675 - Pain in left toe(s). pt c/o pain in left foot distal medial dorsal side x years , wound on second digit. TECHNIQUE: Left foot dorsoplantar, lateral and oblique projections obtained and reviewed. There is n o prior study for comparison. FINDINGS: Left metatarsal bones unremarkable. Small posterior and inferior calcaneal spurs. There is moderate 1st metatarsophalangeal joint primary osteoarthritis. Otherwise mild to moderate polyart icular primary osteoarthritis. There are no bony erosions identified. There are no acute fractures or dislocations identified. There is no subcutaneous gas. The soft tissue is unremarkable. There ar e no radiopaque foreign bodies. Bones are osteopenic. IMPRESSION: Osteoarthritis. Osteopenia. Reviewed, dictated and finalized at location A. IMPRESSION: Osteoarthritis. Osteopenia.
== END ==
PROVIDERS: PCP Family Medicine; Visit Provider Physician Assistant
DX: M85.872 Other specified disorders of bone density and structure, left ankle and foot (principal); M19.072 Primary osteoarthritis, left ankle and foot
CPT/HCPCS: 73630

== ENCOUNTER 2020-09-09 01:10 | Inpatient (IN) | payer OTHER, SELFPAY ==
[2020-09-09] VITALS (21 sets, daily range): BP systolic 102–148; BP diastolic 50–80; PULSE 66–91; RESP 13–23; TEMP 36.2–36.9; O2SAT 92–99
--- NOTE | ~2020-09-09 | XR_ITS ---
EXAMINATION: XR surgery orthopedic DATE: 09/09/2020 11:29 INDICATION: Right hip pinning TECHNIQUE: 3 fluoroscopic images of the right hip were obtained during procedure performed by Dr. Barber patel. Radiologist was not present for the imaging or procedure. The amount of fluoroscopy time used d uring this procedure was 1.2 minutes. COMPARISON: CT dated 09/09/2020 FINDINGS: Alignment initial mortgage loan funder image demonstrates an impacted subcapital fracture of the proximal right femur. Subsequent images demonstrate fixation of the fracture which remains in near-anatomic al ignment with 3 cannulated lag screws which have been placed over guidewires. Moderate right hip osteo arthritis. IMPRESSION: 1. Fluoroscopy utilized during lag screw fixation of an impacted subcapital fracture of the proximal right femur. See procedure note for further detail. Reviewed, dictated and finalized at location A. IMPRESSION: 1. Fluoroscopy utilized during lag screw fixation of an impacted subcapital fra cture of the proximal right femur. See procedure note for further detail.
--- NOTE | ~2020-09-09 | XR_ITS ---
EXAMINATION: XR hip RT 2V w AP pelvis INDICATION: Right hip pain, initial encounter TECHNIQUE: AP view the pelvis and two views of the right hip are obtained. COMPARISON: 03/25/2019 FINDINGS: There is an acute, traumatic, closed, impacted, subcapital fracture of the right femoral ne ck. Moderate osteoarthritis is noted in the hips. Calcified atherosclerosis is noted. IMPRESSION: 1. Impacted subcapital fracture of the right femoral neck. Reviewed, dictated and finalized at location A.
--- NOTE | ~2020-09-09 | CT_ITS ---
EXAMINATION: CT pelvis wo con DATE: 09/09/2020 02:16 INDICATION: Pelvic pain status post fall, initial encounter TECHNIQUE: Computed tomography (CT) of the pelvis was performed without intravenous contrast. The dos e-length product (DLP) was 614.09 mGy-cm. Automated exposure control and iterative reconstruction gabriel hnique were employed. COMPARISON: 03/25/2019 FINDINGS: There is an acute, traumatic, closed, impacted subcapital fracture of the right femoral nec k. No additional acute fracture is identified. There is moderate osteoarthritis of the hips. Calcifie d atherosclerosis is noted. The pelvic viscera are unremarkable. There are no pathologically enlarged pelvic lymph nodes. IMPRESSION: 1. Impacted subcapital fracture of the right femoral neck. Reviewed, dictated and finalized at location A.
--- NOTE | 2020-09-09 01:18 | ED.GENADULT ---
HPI - General Adult General Chief complaint: Extremity Injury, Lower Stated complaint: R groin pain Time Seen by Provider: 09/09/20 01:11 History of Present Illness HPI narrative: Patient 85-year-old gentleman who presents the emergency department with chief complaint of right pelvis pain. The patient reports he was getting into his bed and the bed slid he fell and landed on his right hip area. Patient reports he has pain in his right groin area reports that it is worse with movement and improved with rest. Patient denies any shortening or rotating of his hip. Patient denies head injury denies loss of consciousness. Related Data Home Medications Medication Instructions Recorded Confirmed oxybutynin chloride 5 mg PO DAILY 10/15/19 08/21/20 Allergies Allergy/AdvReac Type Severity Reaction Status Date / Time Penicillins Allergy Unknown unknown Verified 09/09/20 01:26 sulfanilamide Allergy Unknown Unknown Verified 09/09/20 01:26 nitrofurantoin AdvReac Unknown Hallucinati Verified 09/09/20 01:26 ng Review of Systems Review of Systems: Narrative: A 10 system review of systems was completed on the patient and is negative except for what is stated in the HPI. Nursing and ancillary documentation was reviewed. [facility] Past Medical History Medical History BMI 32.0-32.9,adult Chronic anemia Coronary artery disease Status post 2 vessel CABG in 1997. Degenerative joint disease of knee Essential hypertension Fracture of thumb, right, closed Frequent falls Frequent urinary tract infections On prophylactic Bactrim q.h.s. Gait instability Gastroesophageal reflux disease Hearing loss Hyperlipidemia Nephrolithiasis Osteoarthritis Osteoarthritis of right knee Overactive bladder Primary osteoarthritis of both knees Shingles Type 2 diabetes mellitus Hemoglobin A1c was 6.2% in July 2019. Surgical History Surgical History History of coronary artery bypass graft Two vessel CABG in 1997. Status post tendon repair Family History Family History Mother Family history of malignant neoplasm Sibling Family history of diabetes mellitus in first degree relative Father Family history of coronary artery disease Other Diabetes mellitus Social History Social History Social History: Surrogate decision maker: Esha Story, daughter. Code status: Full code. Smoking packs per day: 1.5 Smoking cigarettes per day: 30.0 Years smoked: 30 Smoking pack-years: 45.00 Smoking status: Former smoker Tobacco type: cigarettes Second hand tobacco smoke exposure: No Smoking end date: 02/23/77 Alcohol intake: unknown Substance use: never Substance use type: does not use Additional living arrangements comments: Resides in [place] with his sister and daughter. 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 Gender identity (if verbalized by the patient): Male Spiritual care concerns: No Exam Narrative: Exam Narrative: GENERAL: Well-appearing, well-nourished, and in no acute distress. HEAD: Normocephalic, atraumatic. EYES: PERRLA and EOMI. ENT: Nares clear, no rhinorrhea or epistaxis. Mucous membranes moist. NECK: Supple. CHEST: Clear to auscultation. No respiratory distress. HEART: Regular rate and rhythm. No murmur heard. Normal peripheral pulses. ABDOMEN: Soft, nontender, nondistended, normal active bowel sounds. EXTREMITIES: Normal range of motion. No edema. There is tenderness to palpation in the right inguinal area there is no mass present. There is no shortening or rotating of the hip SKIN: Warm, dry, no rash. NEURO: No focal deficits. Alert and oriented x3. PSYCH: Normal mood and affect.
[2020-09-09] MEDS: MORPHINE SULFATE (*CRX) 4 MG/ML INJ IV PUSH (04:42)
[2020-09-09 04:45] LABS: Add Urine Microscopic? YES; Appearance Urine Clear (Clear); Bacteria Urine Trace /hpf; Bilirubin Urine Negative (Negative); Blood Urine Negative (Negative); Color Urine Straw (Yellow); Glucose Urine UA Negative (Negative); Ketones Urine Negative (Negative); Leukocyte Esterase Ur Trace LEU/UL (Negative); Nitrate Urine Negative (Negative); Protein Urine Negative (Negative); RBC Urine 0-2 /hpf (0-2); Specific Grav Ur 1.011 (1.001-1.035); Squamous Epithelial Cell Urine Few /hpf (Few); Urobilinogen Urine Negative mg/dL (<2.0); WBC Urine 0-3 /hpf
[2020-09-09 05:02] LABS: Basophils Percent Auto 0.2 % (0.2-1.2); Eosinophils Percent Auto 0.2 % (0-4.4); Hematocrit 39.9 % (42.0-52.0); Hemoglobin 12.9 g/dL (14.0-18.0); Immature Granulocyte Absolute 0.07 K/mm3 (0.00-0.031); Immature Granulocyte Percent A 0.5 % (0-0.5); Lymphocytes Absolute Auto 1.04 K/mm3 (0.9-3.2); Lymphocytes Percent Auto 7.6 % (18.3-44.2); Mean Corpuscular HGB Conc 32.3 g/dl (32-36); Mean Corpuscular Hemoglobin 28.5 pg (26-34); Mean Corpuscular Volume 88.3 fl (80-100); Mean Platelet Volume 8.6 fl (7.4-10.4); Monocytes Absolute Auto 0.9 K/mm3 (0.1-0.6); Monocytes Percent Auto 6.5 % (2.6-8.5); Neutrophils Absolute Auto 11.5 K/mm3 (1.3-6.7); Platelet Count Result 256 k/mm3 (150-375); Red Blood Count 4.52 M/mm3 (4.6-6.20); Red Cell Distribution Width 14.7 % (11.5-14.5); White Blood Count 13.6 K/mm3 (4.5-10.0)
[2020-09-09 05:10] LABS: Prothrombin Time 13.5 Seconds (11.1-14.7)
[2020-09-09 05:11] LABS: Partial Thromboplastin Time 29.5 SECONDS (22.3-36.8)
[2020-09-09 05:19] LABS: Alanine Aminotransferase 14 U/L (4-50); Albumin Level 3.6 g/dL (3.5-5.1); Alkaline Phosphatase 188 U/L (38-126); Anion Gap 7 mmol/L (8-16); Aspartate Amino Transferase 23 U/L (17-59); Bilirubin,Total 0.7 mg/dL (0.2-1.3); Blood Urea Nitrogen 19 mg/dL (9-20); Calcium 9.2 mg/dL (8.4-10.2); Carbon Dioxide 30 mmol/L (22-30); Chloride 99 mmol/L (98-107); Estimated CRCL calculation 48 ml/min; Estimated Glomerular Filt Rate 58; Glucose 105 mg/dL (65-110); Potassium 4.2 mmol/L (3.4-5.0); Sodium 136 mmol/L (137-145)
[2020-09-09] MEDS: HYDROmorphone HCL INJ (*CRX) 1 MG/ML SYR IV PUSH (06:34)
--- NOTE | 2020-09-09 07:05 | ADMGEN ---
This patient, Jose Angel Story Jr., was admitted to [facility] Surg Room 332-01. Patient/family oriented to hospital policies and general routines including ID bracelet, bed and alarms, visiting hours, pain management, procedures, bathroom and other care routines, personal items, smoking policy, room service/diet, and visiting hours. Information on how to activate the Rapid Response Team has been discussed. Patient/Family are encouraged to report perceived risks to care and to ask questions if they do not understand what they are told or what they should do.
--- NOTE | 2020-09-09 07:43 | PM.CNOR ---
Assessment and Plan Assessment and plan (1) Closed fracture of neck of right femur: Qualifiers: Encounter type: initial encounter Qualified Code(s): S72.001A - Fracture of unspecified part of neck of right femur, initial encounter for closed fracture Code(s): S72.001A - Fracture of unspecified part of neck of right femur, initial encounter for closed fracture Status: Acute Assessment and Plan: 85-year-old gentleman status post fall at home in bedroom. Right hip femoral neck fracture with impaction. Discussed nonoperative and operative treatment options with the patient. Risks and benefits of each as well as alternatives were reviewed. All of the patient's questions were answered. The risks of surgery reviewed including but not limited to: Neurovascular damage, wound complication, infection, blood clot, pulmonary embolus, stroke, myocardial infarction, and anesthetic risks up to and including . Continued pain and possible dysfunction were explained. Specific risks of the procedure including later recurrence of deformity. No guarantees were offered. If hardware used, discussed risk of failure/ breakage and possible need for removal. If complications occur, the patient understands the need for further treatment, possible further surgery. Patient verbalizes understanding and wishes to proceed. PLAN: Right hip pinning History of Present Illness HPI Consult date: 09/09/20 Requesting physician: Deandre Tabor MD Chief complaint: right impacted femoral neck fracture Narrative: 85-year-old gentleman independent ambulator who lives at home who fell out of bed early this morning. Unable to bear weight on the right leg. Brought to the emergency room and found to have right hip femoral neck fracture. Patient complains of groin pain with movement. Fairly comfortable at rest. No prior problems with this hip. Patient ambulates without assistive device. Verbalizes desire to remain ambulatory and independent. Denies numbness or tingling. Review of Systems Constitutional: Constitutional: Denies fever(s) Eyes: Eyes: Denies blurry vision ENT: Reports Normal hearing present Cardiovascular: Cardiovascular: Denies chest pain and Denies dyspnea Respiratory: Respiratory: Denies dyspnea and Denies wheezing Gastrointestinal: Gastrointestinal: Denies abdominal pain Genitourinary: Genitourinary: Denies urinary urgency Musculoskeletal: Musculoskeletal: Reports as per HPI and Denies numbness Integumentary/Breasts: Skin/Breast: Denies changing lesions and Denies sores Neurologic: Reports Normal hearing present, Denies behavioral changes, Denies confusion, Denies numbness and Denies convulsions Psychiatric: Psychiatric: Denies behavioral changes, Denies confusion and Denies hallucinations Endocrine: Endocrine: Denies heat intolerance Hematologic/Lymphatic: Hematologic/Lymphatic: Denies easy bleeding Allergic/Immunologic: Allergic/Immunologic: Denies wheezing [facility] Past Medical History Medical History BMI 32.0-32.9,adult Chronic anemia Coronary artery disease Status post 2 vessel CABG in 1997. Degenerative joint disease of knee Essential hypertension Fracture of thumb, right, closed Frequent falls Frequent urinary tract infections On prophylactic Bactrim q.h.s. Gait instability Gastroesophageal reflux disease Hearing loss Hyperlipidemia Nephrolithiasis Osteoarthritis Osteoarthritis of right knee Overactive bladder Primary osteoarthritis of both knees Shingles Type 2 diabetes mellitus Hemoglobin A1c was 6.2% in July 2019. Surgical History Surgical History History of coronary artery bypass graft Two vessel CABG in 1997. Status post tendon repair Family History Family History Mother Family histo
--- NOTE | 2020-09-09 08:57 | WPDANESEPPF ---
Anes - Initial Pre Proc Eval Procedure: Operation Date: 09/09/20 10:30 Proposed Procedures p Hip Pinning Cannulated Screws(Right) - Clarence Espinoza MD Date/Time: 09/09/20 08:57 Surgeon: Alivia Yi PA-C Pre Op Diagnosis: right impacted femoral neck fracture Patient Data Age: 85 Gender: M Height: 1.91 m Weight: 100 kg Last Vital Signs Temp 36.9 C 09/09/20 08:55 Pulse 70 09/09/20 08:55 Resp 20 09/09/20 08:55 BP 142/65 H 09/09/20 08:55 Pulse Ox 92 09/09/20 08:55 Allergies Allergy/AdvReac Type Severity Reaction Status Date / Time Penicillins Allergy Unknown unknown Verified 09/09/20 01:26 sulfanilamide Allergy Unknown Unknown Verified 09/09/20 01:26 nitrofurantoin AdvReac Unknown Hallucinati Verified 09/09/20 01:26 ng Home Medications Medication Instructions Recorded Confirmed Type atenolol 50 mg tablet 50 mg PO DAILY #90 tablet 10/13/19 09/09/20 Rx omeprazole 10 mg capsule,delayed 10 mg PO DAILY #90 cap 10/13/19 09/09/20 Rx release oxybutynin chloride 5 mg PO DAILY 10/15/19 09/09/20 History loratadine 10 mg tablet 10 mg PO DAILY #90 tablet 10/24/19 09/09/20 Rx metformin 500 mg tablet 500 mg PO BID #180 tablet 12/29/19 09/09/20 Rx trimethoprim 100 mg tablet 100 mg PO .qhs #90 tablet 12/29/19 09/09/20 Rx atorvastatin 20 mg tablet 20 mg PO DAILY #90 tablet 08/07/20 09/09/20 Rx diltiazem HCl 240 mg PO DAILY 09/09/20 09/09/20 History furosemide 20 mg PO DAILY 09/09/20 09/09/20 History mupirocin 2 applic TOPICAL DAILY 09/09/20 09/09/20 History terbinafine HCl 250 mg PO DAILY 09/09/20 09/09/20 History Laboratory Tests 09/09/20 09/09/20 09/09/20 04:27 04:45 04:45 WBC 13.6 K/mm3 H K/mm3 (4.5-10.0) RBC 4.52 M/mm3 L M/mm3 (4.6-6.20) Hgb 12.9 g/dL L g/dL (14.0-18.0) Hct 39.9 % L % (42.0-52.0) MCV 88.3 fl fl (80-100) MCH 28.5 pg pg (26-34) MCHC 32.3 g/dl g/dl (32-36) RDW 14.7 % H % (11.5-14.5) Plt Count 256 k/mm3 k/mm3 (150-375) MPV 8.6 fl fl (7.4-10.4) Immature Gran % (Auto) 0.5 % % (0-0.5) Neut % (Auto) 85.0 % H % (45.5-73.1) Lymph % (Auto) 7.6 % L % (18.3-44.2) [place] % (Auto) 6.5 % % (2.6-8.5) Eos % (Auto) 0.2 % % (0-4.4) Baso % (Auto) 0.2 % % (0.2-1.2) Lymph # (Auto) 1.04 K/mm3 K/mm3 (0.9-3.2) [place] # (Auto) 0.9 K/mm3 H K/mm3 (0.1-0.6) Eos # (Auto) 0.0 K/mm3 K/mm3 (0-0.3) Baso # (Auto) 0.0 K/mm3 K/mm3 (0.0-0.1) Abs Immat Gran (auto) 0.07 K/mm3 H K/mm3 (0.00-0.031) Absolute Neuts (auto) 11.5 K/mm3 H K/mm3 (1.3-6.7) Absolute Nucleated RBC 0.0 K/mm3 K/mm3 (0.0-0.012) Nucleated RBC % 0.0 % % (0.0-0.2) PT 13.5 Seconds Seconds (11.1-14.7) INR 1.0 APTT 29.5 SECONDS SECONDS (22.3-36.8) Sodium Potassium Chloride Carbon Dioxide Anion Gap BUN Creatinine Estim Creat Clear Calc Estimated GFR Glucose Calcium Total Bilirubin AST ALT Alkaline Phosphatase Total Protein Albumin Urine Color Straw (Yellow) Urine Appearance Clear (Clear) Urine pH 7.0 (5.0-9.0) Ur Specific Ideal 1.011 (1.001-1.035) Urine Protein Negative mg/dL mg/dL (Negative) Urine Glucose (UA) Negative mg/dL mg/dL (Negative) Urine Ketones Negative mg/dL mg/dL (Negative) Ur Blood (Man) Negative (Negative) Urine Nitrate Negative (Negative) Urine Bilirubin Negative (Negative) Urine Urobilinogen Negative mg/dL mg/dL (<2.0) Leukocyte Esterase Rfl Trace KIMBERLEE/UL H KIMBERLEE/UL
--- NOTE | 2020-09-09 09:05 | PC.NURSE ---
Addendum entered by Patience Brizuela RN 09/09/20 18:07: To OR at 0900. Incorrect previous timing noted at 1300 Original Note: To OR per bed, IV 20 Gauge to the left forearm at 1300. Report given to Yolanda.
[2020-09-09] MEDS: LACTATED RINGERS 1,000 ML 30 ML IV CONT (09:07)
--- NOTE | 2020-09-09 09:16 | PM.IMHP ---
H&P: HPI History of Present Illness Date/Time: 09/09/20 09:16 Chief Complaint: The patient is an 85 year old man with history of CAD status post 2 vessel CABG in 1997, hypertension, diabetes, chronic anemia, who presented to the emergency room after sustaining a fall and having right hip/pelvis pain. The patient states he was shaking his friends hand after they got done visiting at his house yesterday afternoon and then fell. He has increased pain to his right groin and hip with any type of movement or with trying to ambulate. He denies feeling lightheaded, dizzy or having a syncopal episode. He reports feeling well lately without any symptoms of cough, SOB, chest pain, nausea, vomiting, abdominal pain, diarrhea, constipation, leg swelling, calf pain, dysuria, frequent urination, or any other symptoms at this time. He denies any head trauma or loss of consciousness from the fall. the patient would like to be a full code power of contracts attorney is his daughter Esha Review of Systems Review of Systems: All systems reviewed & are unremarkable except as noted in HPI and below PMFSH Past Medical History Medical History BMI 32.0-32.9,adult Chronic anemia Coronary artery disease Status post 2 vessel CABG in 1997. Degenerative joint disease of knee Essential hypertension Fracture of thumb, right, closed Frequent falls Frequent urinary tract infections On prophylactic Bactrim q.h.s. Gait instability Gastroesophageal reflux disease Hearing loss Hyperlipidemia Nephrolithiasis Osteoarthritis Osteoarthritis of right knee Overactive bladder Primary osteoarthritis of both knees Shingles Type 2 diabetes mellitus Hemoglobin A1c was 6.2% in July 2019. Surgical History Surgical History History of coronary artery bypass graft Two vessel CABG in 1997. Status post tendon repair Family History Family History Mother Family history of malignant neoplasm Sibling Family history of diabetes mellitus in first degree relative Father Family history of coronary artery disease Other Diabetes mellitus Social History Social History (Updated 09/09/20 @ 09:51 by Alivia Yi PA-C) Social History: Surrogate decision maker: Esha Story, daughter. Code status: Full code. Smoking packs per day: 1.5 Smoking cigarettes per day: 30.0 Years smoked: 30 Smoking pack-years: 45.00 Smoking status: Former smoker Tobacco type: cigarettes Second hand tobacco smoke exposure: No Smoking end date: 02/23/77 Alcohol intake: never Substance use: never Substance use type: does not use Living arrangements: with family Additional living arrangements comments: Resides in [place] with his daughter and granddaughter. 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 Gender identity (if verbalized by the patient): Male Spiritual care concerns: No Meds Home Medications and Allergies Home Medications Medication Instructions Recorded Confirmed Type atenolol 50 mg tablet 50 mg PO DAILY #90 tablet 10/13/19 09/09/20 Rx omeprazole 10 mg capsule,delayed 10 mg PO DAILY #90 cap 10/13/19 09/09/20 Rx release oxybutynin chloride 5 mg PO DAILY 10/15/19 09/09/20 History loratadine 10 mg tablet 10 mg PO DAILY #90 tablet 10/24/19 09/09/20 Rx metformin 500 mg tablet 500 mg PO BID #180 tablet 12/29/19 09/09/20 Rx trimethoprim 100 mg tablet 100 mg PO .qhs #90 tablet 12/29/19 09/09/20 Rx atorvastatin 20 mg tablet 20 mg PO DAILY #90 tablet 08/07/20 09/09/20 Rx diltiazem HCl 240 mg PO DAILY 09/09/20 09/09/20 History furosemide 20 mg PO DAILY 09/09/20 09/09/20 History mupirocin 2 applic TOPICAL DAILY 09/09/20 09/09/20 History terbinafine HCl 250 mg PO DAILY 07
--- NOTE | 2020-09-09 10:17 | WPDHPUPDATE1 ---
History and Physical Update Update Date/Time: 09/09/20 10:17 History and Physical has been reviewed, including an updated exam of the patient. There are NO changes in the patient's condition. Risks, benefits, and alternatives have been discussed and questions answered. Patient agrees to proceed with procedure.
[2020-09-09] MEDS: ceFAZolin 2 GM/D5W 50 ML 2 GM/50 ML BAG IVPB (10:23)
[2020-09-09] MEDS: BUPIVACAINE/EPINEPHRINE 0.5% 30 ML VIAL INFILTRATE (11:24)
--- NOTE | 2020-09-09 11:41 | P.OP_ITS ---
Procedure Note - Detailed Date of Procedure 09/09/20 Pre-op Diagnosis right impacted femoral neck fracture Post-op Diagnosis same Procedure Performed Right hip pinning Surgeon Clarence Espinoza MD Case Repairer 1st virtual office assistant Anesthesia general Indications this 85-year-old gentleman fell from his bed onto was right hip. Impacted femoral neck fracture. Indicated for hip pinning. Patient desires operative treatment. Description of Procedure What was done: Informed consent signed. Extremity marked in preoperative holding area. Patient received intravenous antibiotics. Brought to operating room and underwent general anesthetic by the Anesthesia Team. Positioned supine on the fracture table. Right leg placed into longitudinal traction. Left leg extended out of field. Image intensification brought in and confirmed reduction of fracture. Right hip prepped and draped in usual sterile surgical fashion using ChloraPrep skin solution. Image intensification used to guide the starting position and a longitudinal incision made with 10 blade knife over the lateral proximal femur. Blunt dissection carried down to the lateral femur. Bleeding controlled with electrocautery. First guide pin placed in the inferior center position of the femoral neck and head. Confirmed with image intensification. Two subsequent pins placed superior and anterior and superior and posterior to the 1st pin to create an inverted triangle type pattern. Pins confirmed with image intensification. Length of screw measured, reaming performed. Appropriate size screw placed with good compression and fixation noted for all 3 screw. Guide pins removed. Final image intensification confirmed reduction of fracture and placement of hardware with threads past the fracture line and no protrusion of the hip joint. Wound thoroughly irrigated with antibiotic solution. Fascia repaired with 2 0 Vicryl interrupted sutures. Subcutaneous tissue repaired with 3 0 Monocryl interrupted suture. Skin approximated with 3 0 Monocryl running suture. Sterile dressing applied. Patient awoken from anesthesia, extubated and returned to recovery room in stable condition. All sponge needle and instrument counts correct at the end of the case. Implants [place] 8.0 mm cannulated screw x2, 6.5 mm cannulated screw x1 Estimated Blood Loss 50 Drains No Packing No Pathology none sent Complications None Condition stable Disposition PACU
[2020-09-09 12:29] LABS: Glucose Point of Care 135 mg/dl (65-105)
--- NOTE | 2020-09-09 12:45 | PC.NURSE ---
Returned from OR per bed at 1245. Report received from Darwin.
[2020-09-09] MEDS: SODIUM CHLORIDE 0.9% IV 1,000 ML 100 ML IV CONT (13:15)
[2020-09-09] MEDS: ATORVASTATIN 20 MG TABLET PO (13:31)
[2020-09-09] MEDS: PANTOPRAZOLE 40 MG TABLET PO ×2 (13:31→22:28)
[2020-09-09] MEDS: atenoloL 50 MG TABLET PO (13:31)
[2020-09-09] MEDS: LORATADINE 10 MG TABLET PO (13:31)
[2020-09-09] MEDS: TERBINAFINE HCL 250 MG TABLET PO (13:32)
[2020-09-09] MEDS: OXYBUTYNIN CHLORIDE 5 MG TABLET PO (13:32)
[2020-09-09] MEDS: FUROSEMIDE 20 MG TABLET PO (13:32)
--- NOTE | 2020-09-09 13:46 | PCPTNOTE ---
Attempted PT evaluation this date, pt declined asked to do therapy tomorrow. Will attempt again at a later date/time.
[2020-09-09] MEDS: HYDROcodone/acetaminophen (*CRX) 5-325 MG TABLET 1 TAB PO (14:50)
[2020-09-09] MEDS: DOCUSATE SODIUM 100 MG CAPSULE PO (16:19)
[2020-09-09] MEDS: ASPIRIN 325 MG ENTERIC TABLET PO (16:19)
[2020-09-09 17:00] LABS: Glucose Point of Care 179 mg/dl (65-105)
[2020-09-09] MEDS: MELATONIN 5 MG TABLET PO (22:28)
[2020-09-09] MEDS: TRIMETHOPRIM 100 MG TABLET PO (22:29)
[2020-09-10] VITALS: BP 126/65; PULSE 80; RESP 20; TEMP 36.4; O2SAT 96
[2020-09-10] MEDS: MORPHINE SULFATE (*CRX) 4 MG/ML INJ 3 MG IV PUSH (01:55)
[2020-09-10] MEDS: SODIUM CHLORIDE 0.9% IV 1,000 ML 100 ML IV CONT (02:02)
[2020-09-10 02:16] LABS: Glucose Point of Care 178 mg/dl (65-105)
[2020-09-10 04:00] VITALS: BP 127/60; PULSE 70; RESP 18; TEMP 36.2; O2SAT 90
[2020-09-10] MEDS: HYDROcodone/acetaminophen (*CRX) 5-325 MG TABLET 1 TAB PO (05:57)
[2020-09-10 06:56] LABS: Hematocrit 35.8 % (42.0-52.0); Hemoglobin 11.7 g/dL (14.0-18.0); Mean Corpuscular HGB Conc 32.7 g/dl (32-36); Mean Corpuscular Hemoglobin 28.3 pg (26-34); Mean Corpuscular Volume 86.5 fl (80-100); Mean Platelet Volume 8.9 fl (7.4-10.4); Platelet Count Result 246 k/mm3 (150-375); Red Blood Count 4.14 M/mm3 (4.6-6.20); Red Cell Distribution Width 14.6 % (11.5-14.5); White Blood Count 15.3 K/mm3 (4.5-10.0)
[2020-09-10 07:09] LABS: Anion Gap 5 mmol/L (8-16); Blood Urea Nitrogen 15 mg/dL (9-20); Calcium 8.3 mg/dL (8.4-10.2); Carbon Dioxide 28 mmol/L (22-30); Chloride 101 mmol/L (98-107); Estimated CRCL calculation 52 ml/min; Estimated Glomerular Filt Rate > 60; Glucose 111 mg/dL (65-110); Potassium 4.3 mmol/L (3.4-5.0); Sodium 134 mmol/L (137-145)
[2020-09-10 07:36] LABS: Band Neutrophils Percent 1 % (0-6); Hypochromasia 2+ (NORMAL); Lymphocytes Absolute Manual 0.15 K/mm3 (1.1-4.5); Monocytes Absolute Manual 0.45 K/mm3 (0.1-0.90); Monocytes Percent Manual 3 % (3-9); Neutrophils Absolute Manual 14.68 K/mm3 (1.3-6.7); Neutrophils Percent Manual 95 % (46-73); Platelet Estimate Adequate (Adequate); Total Cells Counted 100
[2020-09-10 07:37] LABS: Helmet Cells 1+ (NORMAL); Tear Drop Cells 2+ (NORMAL)
[2020-09-10 07:59] LABS: Glucose Point of Care 130 mg/dl (65-105)
--- NOTE | 2020-09-10 09:16 | PM.PNORT ---
Progress Note: A&P Assessment and Plan (1) Closed fracture of neck of right femur: Qualifiers: Encounter type: initial encounter Qualified Code(s): S72.001A - Fracture of unspecified part of neck of right femur, initial encounter for closed fracture Code(s): S72.001A - Fracture of unspecified part of neck of right femur, initial encounter for closed fracture Status: Acute Assessment and Plan: POD #1: CRPP Right Hip Continue PT/OT. WBAT. Walker. HIGH FALL RISK. Monitor dressing. Change daily. Island dressing. Ice lateral hip. Pain control. DVT prophylaxis. SCDs. Incentive Spirometry. Dispo: Home with Home Health vs. Acute Rehab Subjective Subjective Date/Time Seen: 09/10/ 09:00 Post Op day: 1 Interval history: POD #1: Right Hip CRPP No new complaints. Pain well controlled. Some bruising around incision. Review of Systems Constitutional: Constitutional: Denies chills, Reports fatigue and Denies night sweats Cardiovascular: Cardiovascular: Denies chest pain and Denies lightheadedness Respiratory: Respiratory: Denies cough and Denies wheezing Gastrointestinal: Gastrointestinal: Denies abdominal pain, Denies diarrhea, Denies nausea and Denies vomiting Genitourinary: Genitourinary: Denies dysuria, Reports urinary frequency and Denies urinary hesitancy Musculoskeletal: Musculoskeletal: Reports arthralgias (right hip ) and Reports joint swelling (right hip ) Endocrine: Endocrine: Reports fatigue Allergic/Immunologic: Allergic/Immunologic: Denies wheezing Exam Const: General: comfortable and no acute distress Resp: Effort & Inspection: normal respiratory effort Cardio: Rate: regular rate Rhythm: regular rhythm : Other: Urine clear Neuro: General: No gait normal (antalgic, limited, requiring assistance ) Cognition (Neuro): normal cognition Motor exam (neuro): strength not 5/5 throughout (weakness RLE ) and Abnormal motor strength present (decreased RLE ) Sensory Exam: normal sensation Extrem: Right lower extremity: hip/thigh (Right lateral hip incision c/d/i. ) Details: tenderness Location: of the hip Location: laterally, abnormal ROM (limited due to recent surgical intervention ), ecchymosis (surrounding incision ) and other (Thigh soft/nontender. ); no deformity and no unusual warmth, lower leg (Negative Erik's Sign ) and foot Details: normal capillary refill, no edema, vascular exam Details: dorsalis pedis pulse present and posterior tibial pulse present, tendon exam Details: active flexion normal Location: of all toes and active extension normal Location: of all toes and motor-sensory exam Details: two point discrimination normal and light-touch normal Left lower extremity: normal to inspection, full ROM, normal capillary refill and hip/thigh Details: normal to inspection and normal ROM; no tenderness and no swelling Psych: Mental Status: mental status grossly normal Affect: normal affect Objective Data Vital Signs Vital Signs: Vital Signs - 24 hr 09/09/20 09:25 09/09/20 11:41 09/09/20 11:55 Temperature 36.8 C 36.4 C L Pulse Rate 80 74 73 Respiratory Rate 20 13 15 Blood Pressure 121/62 107/50 L 107/51 L Pulse Oximetry 92 94 98 09/09/20 12:10 09/09/20 12:25 09/09/20 12:39 Temperature Pulse Rate 76 68 66 Respiratory Rate 17 15 16 Blood Pressure 127/61 126/59 L 121/56 L Pulse Oximetry 96 96 96 09/09/20 13:00 09/09/20 13:15 09/09/20 13:31 Temperature 36.5 C 36.6 C Pulse Rate 80 82 80 Respiratory Rate 20 20 Blood Pressure 127/70 125/72 Pulse Oximetry 95 95 09/09/20 13:45 09/09/20 14:22 09/09/20 14:45 Temperature 36.4 C L 36.6 C Pulse Rate 81 67 Respiratory Rate 20 18 Blood Pressure 135/64 119/62 Pulse Oximetry 95 95 99 09/09/20 18:30 09/09/20 21:24 09/10/20 00:00 Temperature 36.6 C 36.6 C 36.4 C L Pulse Rate 75 82 80 Respiratory Rate 20 20 20 Blood Pressure 123/70 137/59 L 126/65 Pulse Oximetry 98 94 96
[2020-09-10 09:18] VITALS: PULSE 70
[2020-09-10] MEDS: ASPIRIN 325 MG ENTERIC TABLET PO ×2 (09:18→18:32)
[2020-09-10] MEDS: FUROSEMIDE 20 MG TABLET PO (09:18)
[2020-09-10] MEDS: atenoloL 50 MG TABLET PO (09:18)
[2020-09-10] MEDS: LORATADINE 10 MG TABLET PO (09:18)
[2020-09-10] MEDS: DOCUSATE SODIUM 100 MG CAPSULE PO ×2 (09:18→18:31)
[2020-09-10] MEDS: OXYBUTYNIN CHLORIDE 5 MG TABLET PO (09:18)
[2020-09-10] MEDS: PANTOPRAZOLE 40 MG TABLET PO ×2 (09:19→21:13)
[2020-09-10] MEDS: ATORVASTATIN 20 MG TABLET PO (09:19)
[2020-09-10] MEDS: TERBINAFINE HCL 250 MG TABLET PO (09:19)
[2020-09-10 10:30] VITALS: BP 123/54; PULSE 67; RESP 18; TEMP 37; O2SAT 92
[2020-09-10 11:18] VITALS: BMI 27.5
[2020-09-10 11:45] LABS: Glucose Point of Care 171 mg/dl (65-105)
--- NOTE | 2020-09-10 12:06 | PM.IMPN ---
Progress Note: A&P Assessment and Plan (1) Closed fracture of neck of right femur: Qualifiers: Encounter type: initial encounter Qualified Code(s): S72.001A - Fracture of unspecified part of neck of right femur, initial encounter for closed fracture Code(s): S72.001A - Fracture of unspecified part of neck of right femur, initial encounter for closed fracture Status: Acute Assessment and Plan: the patient came in with right hip pain after a fall and was found to have an impacted subcapital fracture of the right femoral neck. The patient was admitted into the hospital with an orthopedic surgery consultation and was evaluated by Dr. Espinoza who took him to surgery 09/10/20 and preformed right hip pinning. DVT prophylaxis per Orthopedic surgery PT OT/ discharge planning per orthopedic surgery follow-up postop or orthopedic surgery UA was normal not suggesting UTI causing fall. Lungs are clear not suggesting underlying pneumonia as cause of fall. POD #1- Pt tolerated procedure well. Pain is controlled at this time. patient understands and agrees the plan all questions answered. 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 Will hold patient's metformin while he is hospitalized. Place him on a diabetic diet and check his glucose a.c. HS, hypoglycemic protocol in place and sliding scale insulin with meals. (3) History of coronary artery bypass graft: Code(s): Z95.1 - Presence of aortocoronary bypass graft Status: Chronic Assessment and Plan: patient not having any chest pain at this time. Ortho put on ASA 325 mg BID, his home 81 mg was held. Will need restarted once ortho recommends. (4) Essential hypertension: Code(s): I10 - Essential (primary) hypertension Status: Chronic Assessment and Plan: patient's blood pressure stable this morning at 127/60. Most likely secondary to pain. Continue monitoring.Will continue his diltiazem and atenolol and make any adjustments if necessary. (5) Anemia: Code(s): D64.9 - Anemia, unspecified Status: Chronic Assessment and Plan: Chronic. Hemoglobin on arrival was 12.9, hematocrit 39%. At his baseline. H&H today stable 11/35% after surgery yesterday . No acute signs of bleeding. Continue monitoring H&H. Transfuse if hemoglobin goes less than 7. Time Spent With Patient Time with patient: 25 - 35 minutes Subjective Date/time seen: 09/10/20 12:06 Interval history: date of service 09/10/2020: the patient reports feeling well today. He does not remember having surgery yesterday. His history is limited due to some dementia. At this time he denies any pain, only slight right hip pain with certain movements. Denies any chest pain, shortness of breath, cough, fever, chills, nausea, vomiting, abdominal pain, leg swelling, calf pain or any other symptoms at this time. Review of Systems Review of Systems: ROS unobtainable: Yes unobtainable due to medical condition Exam Narrative: Exam Narrative: General: 85-year-old man Sitting up in bed watching TV with son at bedside. Appears comfortable. In no acute distress. Skin: No jaundice or cyanosis. Good skin turgor. Neck: Full range of motion. Supple. Respiratory: Lungs are clear to auscultation bilaterally. No wheezing, rales or rhonchi. No bony chest wall tenderness. Cardiovascular: The heart has a regular rate and rhythm without murmur. Lower extremities: Right hip surgically
[2020-09-10 14:30] VITALS: BP 125/56; PULSE 65; RESP 18; TEMP 37.1; O2SAT 93
--- NOTE | 2020-09-10 14:34 | WPDANESPN ---
Anes - Prog Note Post-Op Date/Time: 09/10/20 14:34 Cardiovascular status: normal Respiratory status: normal Airway patency: baseline Mental status: other (A&O X1) Post-Op hydration status: normal Vital Signs: Last Vital Signs Temp 37.0 C 09/10/20 10:30 Pulse 67 09/10/20 10:30 Resp 18 09/10/20 10:30 BP 123/54 L 09/10/20 10:30 Pulse Ox 92 09/10/20 10:30 Pain Score (VAS): no complaints I/O: Intake & Output 09/09/20 09/10/20 09/10/20 23:59 07:59 15:59 Intake Total 2290 850 690 Output Total 1000 1500 Balance 1290 -650 690 Laboratory Tests 09/10/20 06:00 09/10/20 06:00 09/09/20 09/09/20 09/10/20 16:38 20:52 06:00 WBC 15.3 H RBC 4.14 L Hgb 11.7 L Hct 35.8 L MCV 86.5 MCH 28.3 MCHC 32.7 RDW 14.6 H Plt Count 246 MPV 8.9 Immature Gran % (Auto) Not Reportable Neut % (Auto) Not Reportable Lymph % (Auto) Not Reportable Addison % (Auto) Not Reportable Eos % (Auto) Not Reportable Baso % (Auto) Not Reportable Lymph # (Auto) Not Reportable Addison # (Auto) Not Reportable Eos # (Auto) Not Reportable Baso # (Auto) Not Reportable Abs Immat Gran (auto) Not Reportable Absolute Neuts (auto) Not Reportable Absolute Nucleated RBC Not Reportable Total Counted 100 Neutrophils % (Manual) 95 H Band Neutrophils % 1 Lymphocytes % (Manual) 1.0 L Monocytes % (Manual) 3 Nucleated RBC % Not Reportable Abs Neuts (Manual) 14.68 H Abs Lymphs (Manual) 0.15 L Abs Monocytes (Manual) 0.45 Platelet Estimate Adequate Hypochromasia 2+ Tear Drop Cells 2+ Helmet Cells 1+ Sodium Potassium Chloride Carbon Dioxide Anion Gap BUN Creatinine Estim Creat Clear Calc Estimated GFR Glucose POC Capillary Glucose 179 H 178 H Calcium 09/10/20 09/10/20 09/10/20 06:00 07:51 11:39 WBC RBC Hgb Hct MCV MCH MCHC RDW Plt Count MPV Immature Gran % (Auto) Neut % (Auto) Lymph % (Auto) Addison % (Auto) Eos % (Auto) Baso % (Auto) Lymph # (Auto) Addison # (Auto) Eos # (Auto) Baso # (Auto) Abs Immat Gran (auto) Absolute Neuts (auto) Absolute Nucleated RBC Total Counted Neutrophils % (Manual) Band Neutrophils % Lymphocytes % (Manual) Monocytes % (Manual) Nucleated RBC % Abs Neuts (Manual) Abs Lymphs (Manual) Abs Monocytes (Manual) Platelet Estimate Hypochromasia Tear Drop Cells Helmet Cells Sodium 134 L Potassium 4.3 Chloride 101 Carbon Dioxide 28 Anion Gap 5 L BUN 15 Creatinine 1.10 Estim Creat Clear Calc 52 Estimated GFR > 60 Glucose 111 H POC Capillary Glucose 130 H 171 H Calcium 8.3 L Post-procedural complaints: none Patient Feedback: Patient satisfied with anesthetic care.
[2020-09-10 17:20] LABS: Glucose Point of Care 140 mg/dl (65-105)
[2020-09-10] MEDS: MELATONIN 5 MG TABLET PO (21:13)
[2020-09-10] MEDS: TRIMETHOPRIM 100 MG TABLET PO (21:13)
[2020-09-10] MEDS: ACETAMINOPHEN 325 MG TABLET 650 MG PO (21:13)
[2020-09-10 21:20] LABS: Glucose Point of Care 165 mg/dl (65-105)
[2020-09-11] VITALS (8 sets, daily range): BP systolic 89–115; BP diastolic 47–87; PULSE 62–74; RESP 16–18; TEMP 36.4–36.8; O2SAT 92–96
[2020-09-11 08:29] LABS: Glucose Point of Care 102 mg/dl (65-105)
[2020-09-11] MEDS: PANTOPRAZOLE 40 MG TABLET PO ×2 (08:48→22:49)
[2020-09-11] MEDS: LORATADINE 10 MG TABLET PO (08:48)
[2020-09-11] MEDS: TERBINAFINE HCL 250 MG TABLET PO (08:48)
[2020-09-11] MEDS: OXYBUTYNIN CHLORIDE 5 MG TABLET PO (08:48)
[2020-09-11] MEDS: DOCUSATE SODIUM 100 MG CAPSULE PO ×2 (08:48→17:52)
[2020-09-11] MEDS: atenoloL 50 MG TABLET PO (08:48)
[2020-09-11] MEDS: FUROSEMIDE 20 MG TABLET PO (08:49)
[2020-09-11] MEDS: ATORVASTATIN 20 MG TABLET PO (08:49)
[2020-09-11] MEDS: ASPIRIN 325 MG ENTERIC TABLET PO ×2 (08:49→17:52)
--- NOTE | 2020-09-11 09:43 | PM.PNORT ---
Progress Note: A&P Assessment and Plan (1) Closed fracture of neck of right femur: Qualifiers: Encounter type: initial encounter Qualified Code(s): S72.001A - Fracture of unspecified part of neck of right femur, initial encounter for closed fracture Code(s): S72.001A - Fracture of unspecified part of neck of right femur, initial encounter for closed fracture Status: Acute Assessment and Plan: POD #2: CRPP Right Hip Continue PT/OT. WBAT. Walker. HIGH FALL RISK. Monitor dressing. Change daily. Island dressing. Ice lateral hip. Pain control. DVT prophylaxis. SCDs. Incentive Spirometry. Dispo: Home with Home Health vs. Acute Rehab Subjective Subjective Date/Time Seen: 09/11/ 09:43 Interval history: POD #2: Right Hip CRPP No new complaints. Pain well controlled. Some bruising around incision. Review of Systems Constitutional: Constitutional: Denies chills, Reports fatigue and Denies night sweats Cardiovascular: Cardiovascular: Denies chest pain and Denies lightheadedness Respiratory: Respiratory: Denies cough and Denies wheezing Gastrointestinal: Gastrointestinal: Denies abdominal pain, Denies diarrhea, Denies nausea and Denies vomiting Genitourinary: Genitourinary: Denies dysuria, Reports urinary frequency and Denies urinary hesitancy Musculoskeletal: Musculoskeletal: Reports arthralgias (right hip ) and Reports joint swelling (right hip ) Endocrine: Endocrine: Reports fatigue Allergic/Immunologic: Allergic/Immunologic: Denies wheezing Exam Const: General: comfortable and no acute distress Other: Extremely AKIAK Resp: Effort & Inspection: normal respiratory effort Cardio: Rate: regular rate Rhythm: regular rhythm : Other: Urine clear Neuro: General: No gait normal (antalgic, limited, requiring assistance ) Cognition (Neuro): normal cognition Motor exam (neuro): strength not 5/5 throughout (weakness RLE ) and Abnormal motor strength present (decreased RLE ) Sensory Exam: normal sensation Extrem: Right lower extremity: hip/thigh (Right lateral hip incision c/d/i. ) Details: tenderness Location: of the hip Location: laterally, abnormal ROM (limited due to recent surgical intervention ), ecchymosis (surrounding incision- increased from yesterday- thigh soft. Mild tenderness ) and other (Thigh soft/nontender. ); no deformity and no unusual warmth, lower leg (Negative Erik's Sign ) and foot Details: normal capillary refill, no edema, vascular exam Details: dorsalis pedis pulse present and posterior tibial pulse present, tendon exam Details: active flexion normal Location: of all toes and active extension normal Location: of all toes and motor-sensory exam Details: two point discrimination normal and light-touch normal Left lower extremity: normal to inspection, full ROM, normal capillary refill and hip/thigh Details: normal to inspection and normal ROM; no tenderness and no swelling Psych: Mental Status: mental status grossly normal (some confusion regarding situation- oriented to place. ) Affect: normal affect Objective Data Vital Signs Vital Signs: Vital Signs - 24 hr 09/10/20 10:30 09/10/20 14:30 09/11/20 06:05 Temperature 37.0 C 37.1 C 36.8 C Pulse Rate 67 65 62 Respiratory Rate 18 18 18 Blood Pressure 123/54 L 125/56 L 104/87 Pulse Oximetry 92 93 94 09/11/20 08:48 Temperature Pulse Rate 74 Respiratory Rate Blood Pressure Pulse Oximetry Intake/Output Intake/Output: Intake & Output 09/08/20 09/09/20 09/10/20 09/11/20 23:59 23:59 23:59 23:59 Intake Total 3040 2570 990 Output Total 1070 2100 600 Balance 1970 470 390 Meds/Results Medications: Active Medications Generic Name Dose Route Start Last Admin Trade Name Freq PRN Reason Stop Dose Admin Acetaminophen 650 mg 09/09/20 12:45 09/10/20 21:13 Acetaminophen 325 Mg Tablet PO 650 mg Q6H PRN Administration Mild Pain (1-3) or Fever Hydrocodone Bitart/Acetaminoph
--- NOTE | 2020-09-11 10:56 | PM.IMPN ---
Progress Note: A&P Assessment and Plan (1) Closed fracture of neck of right femur: Qualifiers: Encounter type: initial encounter Qualified Code(s): S72.001A - Fracture of unspecified part of neck of right femur, initial encounter for closed fracture Code(s): S72.001A - Fracture of unspecified part of neck of right femur, initial encounter for closed fracture Status: Acute Assessment and Plan: the patient came in with right hip pain after a fall and was found to have an impacted subcapital fracture of the right femoral neck. The patient was admitted into the hospital with an orthopedic surgery consultation and was evaluated by Dr. Espinoza who took him to surgery 09/10/20 and preformed right hip pinning. DVT prophylaxis per Orthopedic surgery PT OT/ discharge planning per orthopedic surgery follow-up postop or orthopedic surgery UA was normal not suggesting UTI causing fall. Lungs are clear not suggesting underlying pneumonia as cause of fall. POD #2- Pt tolerated procedure well. Pain is controlled at this time. patient understands and agrees the plan all questions answered. 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 Will hold patient's metformin while he is hospitalized. Place him on a diabetic diet and check his glucose a.c. HS, hypoglycemic protocol in place and sliding scale insulin with meals. (3) History of coronary artery bypass graft: Code(s): Z95.1 - Presence of aortocoronary bypass graft Status: Chronic Assessment and Plan: patient not having any chest pain at this time. Ortho put on ASA 325 mg BID, his home 81 mg was held. Will need restarted once ortho recommends. (4) Essential hypertension: Code(s): I10 - Essential (primary) hypertension Status: Chronic Assessment and Plan: patient's blood pressure stable this morning at 104/87. Most likely secondary to pain medications. Continue monitoring.Will continue his diltiazem and atenolol and make any adjustments if necessary. (5) Anemia: Code(s): D64.9 - Anemia, unspecified Status: Chronic Assessment and Plan: Chronic. Hemoglobin on arrival was 12.9, hematocrit 39%. At his baseline. H&H today stable 11/35% after surgery yesterday. No acute signs of bleeding. Continue monitoring H&H. Transfuse if hemoglobin goes less than 7. Subjective Date/time seen: 09/11/20 10:56 Interval history: Date of service 09/11/2020: The patient reports feeling well today while sitting up in the chair eating breakfast. He does not remember having surgery. His history is limited due to some dementia. He does have pain to right groin and hip and shows me with lifting right leg. Denies any chest pain, shortness of breath, cough, fever, chills, nausea, vomiting, abdominal pain, leg swelling, calf pain or any other symptoms at this time. Review of Systems Review of Systems: ROS unobtainable: Yes unobtainable due to medical condition Exam Narrative: Exam Narrative: General: 85-year-old man sitting up in the chair watching TV trying to eat breakfast. Appears comfortable. In no acute distress. Skin: No jaundice or cyanosis. Good skin turgor. Neck: Full range of motion. Supple. Respiratory: Lungs are clear to auscultation bilaterally. No wheezing, rales or rhonchi. No bony chest wall tenderness. Cardiovascular: The heart has a regular rate and rhythm without murmur. Lower extremities: Right hip surgically dressing in
--- NOTE | 2020-09-11 12:16 | PM.DS ---
DS: Discharge Diagnosis Discharge Diagnosis (1) Closed fracture of neck of right femur: Qualifiers: Encounter type: initial encounter Qualified Code(s): S72.001A - Fracture of unspecified part of neck of right femur, initial encounter for closed fracture Code(s): S72.001A - Fracture of unspecified part of neck of right femur, initial encounter for closed fracture Status: Acute Assessment and Plan: the patient came in with right hip pain after a fall and was found to have an impacted subcapital fracture of the right femoral neck. The patient was admitted into the hospital with an orthopedic surgery consultation and was evaluated by Dr. Espinoza who took him to surgery 09/10/20 and preformed right hip pinning. DVT prophylaxis per Orthopedic surgery PT OT/ discharge planning per orthopedic surgery follow-up postop or orthopedic surgery UA was normal not suggesting UTI causing fall. Lungs are clear not suggesting underlying pneumonia as cause of fall. POD #2- Pt tolerated procedure well. Pain is controlled at this time. patient understands and agrees the plan all questions answered. 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 Will hold patient's metformin while he is hospitalized. Place him on a diabetic diet and check his glucose a.c. HS, hypoglycemic protocol in place and sliding scale insulin with meals. (3) History of coronary artery bypass graft: Code(s): Z95.1 - Presence of aortocoronary bypass graft Status: Chronic Assessment and Plan: patient not having any chest pain at this time. Ortho put on ASA 325 mg BID, his home 81 mg was held. Will need restarted once ortho recommends. (4) Essential hypertension: Code(s): I10 - Essential (primary) hypertension Status: Chronic Assessment and Plan: patient's blood pressure stable this morning at 104/87. Most likely secondary to pain medications. Continue monitoring.Will continue his diltiazem and atenolol and make any adjustments if necessary. (5) Anemia: Code(s): D64.9 - Anemia, unspecified Status: Chronic Assessment and Plan: Chronic. Hemoglobin on arrival was 12.9, hematocrit 39%. At his baseline. H&H today stable 11/35% after surgery yesterday. No acute signs of bleeding. Continue monitoring H&H. Transfuse if hemoglobin goes less than 7. DS: Summary Hospital Course Reason for hospitalization: Status at Discharge Cognitive/behavioral status at discharge: Stable, improved. Time Spent with Patient Time attestation: Total time spent providing and/or coordinating discharge services: Time spent: Greater than 30 minutes Exam Narrative: Exam Narrative: General: 85-year-old man sitting up in the chair watching TV trying to eat breakfast. Appears comfortable. In no acute distress. Skin: No jaundice or cyanosis. Good skin turgor. Neck: Full range of motion. Supple. Respiratory: Lungs are clear to auscultation bilaterally. No wheezing, rales or rhonchi. No bony chest wall tenderness. Cardiovascular: The heart has a regular rate and rhythm without murmur. Lower extremities: Right hip surgically dressing in place, Small area of ecchymosis noted to surgical site. No erythema noted. Carlitos Hose in place up to thighs. No lower extremity edema noted. Distal pulses are easily palpated. No calf tenderness to palpation. Gastrointestinal: The abdomen is soft, nontender and nondistended with active bowel sounds. Psyc
[2020-09-11 12:20] LABS: Glucose Point of Care 166 mg/dl (65-105)
[2020-09-11] MEDS: SODIUM CHLORIDE 0.9% IV 250 ML IV CONT (13:16)
[2020-09-11 17:01] LABS: EDCOVIDSCREEN Negative (Negative)
[2020-09-11 17:54] LABS: Glucose Point of Care 106 mg/dl (65-105)
[2020-09-11] MEDS: MELATONIN 5 MG TABLET PO (22:48)
[2020-09-11] MEDS: HYDROcodone/acetaminophen (*CRX) 5-325 MG TABLET 1 TAB PO (22:48)
[2020-09-11] MEDS: TRIMETHOPRIM 100 MG TABLET PO (22:49)
[2020-09-12] MEDS: HYDROcodone/acetaminophen (*CRX) 5-325 MG TABLET 1 TAB PO ×2 (01:53→12:56)
[2020-09-12 06:05] VITALS: BP 135/66; PULSE 58; RESP 18; TEMP 36.4; O2SAT 95
[2020-09-12 07:10] LABS: Basophils Absolute Auto 0.1 K/mm3 (0.0-0.1); Basophils Percent Auto 0.6 % (0.2-1.2); Eosinophils Absolute Auto 0.5 K/mm3 (0-0.3); Eosinophils Percent Auto 4.1 % (0-4.4); Hematocrit 37.4 % (42.0-52.0); Hemoglobin 12.3 g/dL (14.0-18.0); Immature Granulocyte Absolute 0.05 K/mm3 (0.00-0.031); Immature Granulocyte Percent A 0.4 % (0-0.5); Lymphocytes Absolute Auto 1.11 K/mm3 (0.9-3.2); Lymphocytes Percent Auto 9.4 % (18.3-44.2); Mean Corpuscular HGB Conc 32.9 g/dl (32-36); Mean Corpuscular Hemoglobin 28.5 pg (26-34); Mean Corpuscular Volume 86.8 fl (80-100); Mean Platelet Volume 9.1 fl (7.4-10.4); Monocytes Percent Auto 8.4 % (2.6-8.5); Neutrophils Absolute Auto 9.1 K/mm3 (1.3-6.7); Neutrophils Percent Auto 77.1 % (45.5-73.1); Platelet Count Result 262 k/mm3 (150-375); Red Blood Count 4.31 M/mm3 (4.6-6.20); Red Cell Distribution Width 14.9 % (11.5-14.5); White Blood Count 11.8 K/mm3 (4.5-10.0)
[2020-09-12 07:27] LABS: Anion Gap 7 mmol/L (8-16); Blood Urea Nitrogen 21 mg/dL (9-20); Calcium 8.3 mg/dL (8.4-10.2); Carbon Dioxide 28 mmol/L (22-30); Chloride 103 mmol/L (98-107); Estimated CRCL calculation 48 ml/min; Estimated Glomerular Filt Rate 58; Glucose 96 mg/dL (65-110); Sodium 138 mmol/L (137-145)
[2020-09-12 08:00] VITALS: O2SAT 95
[2020-09-12] MEDS: DOCUSATE SODIUM 100 MG CAPSULE PO ×2 (09:44→17:28)
[2020-09-12] MEDS: TERBINAFINE HCL 250 MG TABLET PO (09:44)
[2020-09-12 09:45] VITALS: PULSE 76
[2020-09-12] MEDS: OXYBUTYNIN CHLORIDE 5 MG TABLET PO (09:45)
[2020-09-12] MEDS: ATORVASTATIN 20 MG TABLET PO (09:45)
[2020-09-12] MEDS: ASPIRIN 325 MG ENTERIC TABLET PO ×2 (09:45→17:28)
[2020-09-12] MEDS: PANTOPRAZOLE 40 MG TABLET PO ×2 (09:45→22:10)
[2020-09-12] MEDS: atenoloL 50 MG TABLET PO (09:45)
[2020-09-12] MEDS: LORATADINE 10 MG TABLET PO (09:46)
[2020-09-12] MEDS: FUROSEMIDE 20 MG TABLET PO (09:46)
[2020-09-12 10:28] LABS: Glucose Point of Care 168 mg/dl (65-105)
--- NOTE | 2020-09-12 12:44 | PM.DS ---
DS: Admitting Diagnosis Admitting Diagnosis Admitting Diagnosis: Hip pain DS: Discharge Diagnosis Discharge Diagnosis (1) Closed fracture of neck of right femur: Onset Date: 09/09/20 Qualifiers: Encounter type: initial encounter Qualified Code(s): S72.001A - Fracture of unspecified part of neck of right femur, initial encounter for closed fracture Code(s): S72.001A - Fracture of unspecified part of neck of right femur, initial encounter for closed fracture Status: Acute Assessment and Plan: the patient is an 85 year old man with a history of CAD s/p CABG, HTN, anemia, DM, who came in with right hip pain after a fall and was found to have an impacted subcapital fracture of the right femoral neck. The patient was admitted into the hospital with an orthopedic surgery consultation and was evaluated by Dr. Espinoza who took him to surgery 09/10/20 and preformed right hip pinning. During the patients admission he was feeling well without any complications. He did have an episode of hypotension 09/11/20 and required 250 cc fluid bolus with improvement of his BP. [facility] DVT prophylaxis per Orthopedic surgery PT OT/ discharge planning per orthopedic surgery follow-up postop or orthopedic surgery UA was normal not suggesting UTI causing fall. Lungs are clear not suggesting underlying pneumonia as cause of fall. (2) Type 2 diabetes mellitus with microalbuminuria: Code(s): E11.29 - Type 2 diabetes mellitus with other diabetic kidney complication; R80.9 - Proteinuria, unspecified Status: Chronic Assessment and Plan: Patient's glucose on arrival was normal at 168. Continue metformin upon discharge. (3) History of coronary artery bypass graft: Code(s): Z95.1 - Presence of aortocoronary bypass graft Status: Chronic Assessment and Plan: patient not having any chest pain at this time. Ortho put on ASA 325 mg BID, his home 81 mg was held. Will need restarted once ortho recommends. (4) Essential hypertension: Code(s): I10 - Essential (primary) hypertension Status: Chronic Assessment and Plan: patient's blood pressure stable this morning at 123/54. Most likely secondary to pain medications. Will continue his diltiazem and atenolol upon discharge (5) Anemia: Code(s): D64.9 - Anemia, unspecified Status: Chronic Assessment and Plan: Chronic. Hemoglobin on arrival was 12.9, hematocrit 39%. At his baseline. H&H stable 11/35% after surgery DS: Summary Hospital Course Hospital Course: See above Status at Discharge Cognitive/behavioral status at discharge: Stable, improved. Time Spent with Patient Time attestation: Total time spent providing and/or coordinating discharge services: 45 Time spent: Greater than 30 minutes Exam Narrative: Exam Narrative: General: 85-year-old man sitting up in bed, watching TV with son at bedside. Appears comfortable. Very Hard off Hearing. In no acute distress. Skin: No jaundice or cyanosis. Good skin turgor. Neck: Full range of motion. Supple. Respiratory: Lungs are clear to auscultation bilaterally. No wheezing, rales or rhonchi. No bony chest wall tenderness. Cardiovascular: The heart has a regular rate and rhythm without murmur. Lower extremities: Right hip surgically dressing in place, Small area of ecchymosis noted to surgical site. No erythema noted. Carlitos Hose in place up to thighs. No lower extremity edema noted. Distal pulses are easily palpated. No calf tenderness to palpation. Gastrointestinal: The abdomen is soft, nontender and nondistended with active marissa
[2020-09-12 12:48] LABS: Glucose Point of Care 152 mg/dl (65-105)
[2020-09-12 14:00] VITALS: BP 123/54; PULSE 66; RESP 16; TEMP 36.6; O2SAT 95
--- NOTE | 2020-09-12 15:20 | PM.PNORT ---
Progress Note: A&P Assessment and Plan (1) Closed fracture of neck of right femur: Onset Date: 09/09/20 Qualifiers: Encounter type: initial encounter Qualified Code(s): S72.001A - Fracture of unspecified part of neck of right femur, initial encounter for closed fracture Code(s): S72.001A - Fracture of unspecified part of neck of right femur, initial encounter for closed fracture Status: Acute Assessment and Plan: postoperative day 3 right hip fracture status post pinning. Minimal pain with ambulation. No pain at rest. Incision benign. Some ecchymosis over the thigh noted. Muscle soft. Okay for discharge from orthopedic standpoint. Continue with physical and occupational therapy with weight-bearing as tolerated. May shower and wash. Local wound care. Follow up in orthopedic office in 5 weeks. DVT prophylaxis with aspirin. May return to previous home dose. Subjective Subjective Date/Time Seen: 09/12/20 15:20 Post Op day: 3 Principal diagnosis: Right hip femoral neck fracture Interval history: patient is still with some disorientation. Difficulty hearing without hearing aid. No complaints of pain. Exam Const: General: comfortable and no acute distress Other: Extremely EKW[place] Resp: Effort & Inspection: normal respiratory effort Cardio: Rate: regular rate Rhythm: regular rhythm Neuro: General: No gait normal (antalgic, limited, requiring assistance ) Cognition (Neuro): normal cognition Motor exam (neuro): strength not 5/5 throughout (weakness RLE ) and Abnormal motor strength present (decreased RLE ) Sensory Exam: normal sensation Extrem: Right lower extremity: hip/thigh (Right lateral hip incision c/d/i. Moderate ecchymosis lateral hip) Details: tenderness Location: of the hip Location: laterally, abnormal ROM (limited due to recent surgical intervention ), ecchymosis (surrounding incision- thigh soft. Mild tenderness ) and other (Thigh soft/nontender. ); no deformity and no unusual warmth, lower leg (Negative Erik's Sign ) and foot Details: normal capillary refill, no edema, vascular exam Details: dorsalis pedis pulse present and posterior tibial pulse present, tendon exam Details: active flexion normal Location: of all toes and active extension normal Location: of all toes and motor-sensory exam Details: two point discrimination normal and light-touch normal Left lower extremity: normal to inspection, full ROM, normal capillary refill and hip/thigh Details: normal to inspection and normal ROM; no tenderness and no swelling; joint enlargement noted Psych: Mental Status: mental status grossly normal (some confusion regarding situation- oriented to place. ) Affect: normal affect Objective Data Vital Signs Vital Signs: Vital Signs - 24 hr 09/11/20 20:00 09/12/20 06:05 09/12/20 09:45 Temperature 97.6 F Pulse Rate 58 L 76 Respiratory Rate 18 Blood Pressure 135/66 Pulse Oximetry 94 95 09/12/20 14:00 Temperature 97.9 F Pulse Rate 66 Respiratory Rate 16 Blood Pressure 123/54 L Pulse Oximetry 95 Intake/Output Intake/Output: Intake & Output 09/09/20 09/10/20 09/11/20 09/12/20 23:59 23:59 23:59 23:59 Intake Total 3040 2570 1230 1110 Output Total 1070 2100 1000 400 Balance 1970 470 230 710 Meds/Results Medications: Active Medications Generic Name Dose Route Start Last Admin Trade Name Freq PRN Reason Stop Dose Admin Acetaminophen 650 mg 09/09/20 12:45 09/10/20 21:13 Acetaminophen 325 Mg Tablet PO 650 mg Q6H PRN Administration Mild Pain (1-3) or Fever Hydrocodone Bitart/Acetaminophen 1 tab 09/09/20 12:45 09/12/20 12:56 Hydrocodone/Acetaminophen (*Crx) 5-325 Mg Tablet PO 1 tab Q3H PRN Administration Pain Rated 4-6 Al Hydrox/Mg Hydrox/Simethicone 30 ml 09/09/20 12:45 Mag Hydrox/Al Hydrox/Simeth 30 Ml Udc PO Q6H PRN Indigestion Aspirin 325 mg 09/09/20 17:00 09/12/20 09:45 Aspirin 325 Mg Enteric T
[2020-09-12 17:19] LABS: Glucose Point of Care 128 mg/dl (65-105)
[2020-09-12 21:43] VITALS: BP 109/52; PULSE 71; RESP 17; TEMP 37.3; O2SAT 93
[2020-09-12] MEDS: TRIMETHOPRIM 100 MG TABLET PO (22:10)
--- NOTE | 2020-09-12 23:57 | PC.NURSE ---
Patient left [facility] at 2232. Report was given to rasheed Aguilar RN said she had no further questions at the time when report was called from ALISSA LEON. I notified detention of patient departure and Diana LEON from the detention had no further questions on the patient. Notified son as well and he was not happy about the late discharge. Educated him on how ambulance service runs and that we are sorry for the inconvenience. Son said that he wanted the detention to call him when he reaches the facility. Told Diana LEON that he requested a phone call. Nurse said that she wouldn't have time until 0300 and the son was just going to have to live with it. Patient was stable at discharged.
== END 2020-09-12 22:32 | DRG 482 ==
LOC: ANHED 05:14 → ANH3MEDSUR 06:45
PROVIDERS: Orthopaedic Surgery; Physician Assistant; Admitting Provider Internal Medicine; Emergency Provider Emergency Medicine; PCP Family Medicine; Visit Provider Family Medicine
PROC: 0QS634Z Reposition Right Upper Femur with Internal Fixation Device, Percutaneous Approach (ICD-10-PCS; principal; 2020-09-09 10:30)
DX: S72.011A Unspecified intracapsular fracture of right femur, initial encounter for closed fracture (principal); W06.XXXA Fall from bed, initial encounter; M17.0 Bilateral primary osteoarthritis of knee; I25.10 Atherosclerotic heart disease of native coronary artery without angina pectoris; I10 Essential (primary) hypertension; D64.9 Anemia, unspecified; E11.29 Type 2 diabetes mellitus with other diabetic kidney complication; R80.9 Proteinuria, unspecified; K21.9 Gastro-esophageal reflux disease without esophagitis; E78.5 Hyperlipidemia, unspecified; F03.90 Unspecified dementia, unspecified severity, without behavioral disturbance, psychotic disturbance, mood disturbance, and anxiety; I95.9 Hypotension, unspecified; Z79.84 Long term (current) use of oral hypoglycemic drugs; Z79.899 Other long term (current) drug therapy; Z87.891 Personal history of nicotine dependence; Z95.1 Presence of aortocoronary bypass graft
CPT/HCPCS: 36415; 72192; 73502; 80048; 80053; 81001; 82948; 85025; 85610; 85730; 87426; 96375; 97110; 97116; 97161; 97165; 97530; 97535; 99285; A9270; C1713; C1769; C9803; J0690; J1100; J1170; J2270; J2370; J2405; J2704; J3010; J7030; J7050; J7120

== ENCOUNTER 2020-11-09 11:16 | Outpatient (CLI) | payer OTHER, SELFPAY ==
[2020-11-09 11:49] LABS: Basophils Absolute Auto 0.1 K/mm3 (0.0-0.1); Basophils Percent Auto 0.5 % (0.2-1.2); Eosinophils Absolute Auto 0.2 K/mm3 (0-0.3); Eosinophils Percent Auto 1.6 % (0-4.4); Hematocrit 35.7 % (42.0-52.0); Hemoglobin 11.5 g/dL (14.0-18.0); Immature Granulocyte Absolute 0.06 K/mm3 (0.00-0.031); Immature Granulocyte Percent A 0.6 % (0-0.5); Lymphocytes Absolute Auto 0.82 K/mm3 (0.9-3.2); Lymphocytes Percent Auto 7.9 % (18.3-44.2); Mean Corpuscular HGB Conc 32.2 g/dl (32-36); Mean Corpuscular Hemoglobin 28.8 pg (26-34); Mean Corpuscular Volume 89.5 fl (80-100); Mean Platelet Volume 8.5 fl (7.4-10.4); Monocytes Absolute Auto 0.9 K/mm3 (0.1-0.6); Monocytes Percent Auto 8.7 % (2.6-8.5); Neutrophils Absolute Auto 8.4 K/mm3 (1.3-6.7); Neutrophils Percent Auto 80.7 % (45.5-73.1); Platelet Count Result 419 k/mm3 (150-375); Red Blood Count 3.99 M/mm3 (4.6-6.20); White Blood Count 10.4 K/mm3 (4.5-10.0)
[2020-11-09 12:00] LABS: Potassium 3.8 mmol/L (3.4-5.0)
[2020-11-09 12:18] LABS: Alanine Aminotransferase 17 U/L (4-50); Albumin Level 3.4 g/dL (3.5-5.1); Alkaline Phosphatase 118 U/L (38-126); Anion Gap 7 mmol/L (8-16); Aspartate Amino Transferase 26 U/L (17-59); Bilirubin,Total 0.4 mg/dL (0.2-1.3); Blood Urea Nitrogen 21 mg/dL (9-20); Carbon Dioxide 30 mmol/L (22-30); Chloride 103 mmol/L (98-107); Estimated Glomerular Filt Rate > 60; Glucose 126 mg/dL (65-110); Sodium 140 mmol/L (137-145)
[2020-11-09 12:54] LABS: Hemoglobin A1C 6.1 % (<5.7)
== END 2020-11-09 11:17 | disposition home or self-care (01) ==
LOC: ANHLAB 11:17
PROVIDERS: PCP Family Medicine; Visit Provider Nurse Practitioner Family
DX: I10 Essential (primary) hypertension (principal); E11.9 Type 2 diabetes mellitus without complications; D64.9 Anemia, unspecified; R79.89 Other specified abnormal findings of blood chemistry; N39.0 Urinary tract infection, site not specified; R97.20 Elevated prostate specific antigen [PSA]; N17.0 Acute kidney failure with tubular necrosis; M19.90 Unspecified osteoarthritis, unspecified site; R74.8 Abnormal levels of other serum enzymes; R60.0 Localized edema; R26.81 Unsteadiness on feet
CPT/HCPCS: 36415; 80053; 83036; 85025

== ENCOUNTER 2020-11-27 20:32 | Inpatient (IN) | payer OTHER, SELFPAY ==
--- NOTE | ~2020-11-27 | XR_ITS ---
EXAMINATION: XR chest 1V portable EXAM DATE: 11/27/2020 21:24 INDICATION: Altered mental status Hx Cad, hypertension, Type 2 diabetes. TECHNIQUE: Portable AP frontal chest x-ray was obtained. Comparison is made to prior examination from 03/25/2019. FINDINGS: Sternotomy wires are present without findings to suggest sternal dehiscence. There is low l andres volume. No definite focal airspace disease. No pneumothorax or pleural effusion. The cardiomedias tinal silhouette is prominent but magnified on this AP technique. There are bony degenerative changes . IMPRESSION: No definite acute findings. Reviewed, dictated and finalized at location A. IMPRESSION: No definite acute findings.
--- NOTE | ~2020-11-27 | CT_ITS ---
EXAMINATION: CT brain wo con EXAM DATE: 11/27/2020 23:16 INDICATION: Altered mental status. TECHNIQUE: Spiral CT of the head was performed without contrast. Axial, coronal and sagittal images were reviewed. The dose-length product (DLP) for this examination was 681.00 mGy-cm. The exposure w as tailored according to patient size, and iterative reconstruction (ASIR) was used as additional dos e reduction technique. Comparison is made to prior examination from 07/10/2020. FINDINGS: There is no acute intraparenchymal hemorrhage. No evidence of intraparenchymal brain mass lesion. No evidence of acute infarction. Please note that initial head CT has limited sensitivity f or small or acute infarctions. Old right basal ganglia lacunar infarction. There is moderate perive ntricular and subcortical hypodensity, nonspecific but probably related to small vessel ischemic dise ase. There is moderate prominence of the sulci and ventricles related to cerebral atrophy. There is intracranial carotid arteriosclerosis. There are no extra-axial collections. There is no mass ef fect or midline shift. The orbits are unremarkable. Soft tissue is unremarkable. The visualized si nuses and mastoid air cells are well aerated. There is no significant interval change. IMPRESSION: 1. No acute intracranial findings. 2. Chronic age related findings. 3. Old right basal ganglia lacunar infarction. Reviewed, dictated and finalized at location G.
--- NOTE | ~2020-11-27 | XR_ITS ---
EXAMINATION: XR hip RT 2V w AP pelvis EXAM DATE: 11/27/2020 23:02 INDICATION: hip pain prior surgery, Hip not healing well TECHNIQUE: Right hip frontal, crosstable lateral projections for interpretation. Frontal projection p estela. Comparison is made to prior examination from 09/09/2020, 11/21/2020. FINDINGS: There are 3 right hip lag screws bridging a subcapital femoral neck fracture without solid bone bridging. No evidence of acute fracture. There is moderate to severe bilateral hip primary osteo arthritis. Pelvic ring is intact. IMPRESSION: Surgically fixed impacted subacute right subcapital femoral neck fracture, lag screws an d appearance unchanged. No solid bone bridging identified. Reviewed, dictated and finalized at location G. IMPRESSION: Surgically fixed impacted subacute right subcapital femoral neck f racture, lag screws and appearance unchanged. No solid bone bridging identified .
[2020-11-27 20:41] VITALS: BP 155/94; PULSE 75; RESP 19; TEMP 36.2; O2SAT 97
--- NOTE | 2020-11-27 21:13 | ECG_ITS ---
Measurements Intervals [place] Rate: 105 P: 264 HI: 205 QRS: -45 QRSD: 81 T: 31 QT: 346 QTc: 458 Interpretive Statements SINUS OR ECTOPIC ATRIAL TACHYCARDIA LEFT ANTERIOR FASCICULAR BLOCK BORDERLINE T WAVE ABNORMALITY- HIGH LATERAL LEADS BASELINE ARTIFACT- I, II, III, AVR, AVL, AVF ABNORMAL ECG Electronically Signed On 11-28-2020 6:20:18 CDT by Peter Cardoza D.O.
[2020-11-27 21:45] LABS: Basophils Absolute Auto 0.1 K/mm3 (0.0-0.1); Basophils Percent Auto 0.4 % (0.2-1.2); Eosinophils Absolute Auto 0.2 K/mm3 (0-0.3); Eosinophils Percent Auto 1.8 % (0-4.4); Hematocrit 35.2 % (42.0-52.0); Hemoglobin 11.5 g/dL (14.0-18.0); Immature Granulocyte Absolute 0.08 K/mm3 (0.00-0.031); Immature Granulocyte Percent A 0.7 % (0-0.5); Lymphocytes Absolute Auto 1.02 K/mm3 (0.9-3.2); Lymphocytes Percent Auto 9.1 % (18.3-44.2); Mean Corpuscular HGB Conc 32.7 g/dl (32-36); Mean Corpuscular Hemoglobin 28.7 pg (26-34); Mean Corpuscular Volume 87.8 fl (80-100); Mean Platelet Volume 8.5 fl (7.4-10.4); Monocytes Absolute Auto 1.2 K/mm3 (0.1-0.6); Monocytes Percent Auto 10.9 % (2.6-8.5); Neutrophils Absolute Auto 8.7 K/mm3 (1.3-6.7); Neutrophils Percent Auto 77.1 % (45.5-73.1); Platelet Count Result 438 k/mm3 (150-375); Red Blood Count 4.01 M/mm3 (4.6-6.20); White Blood Count 11.2 K/mm3 (4.5-10.0)
[2020-11-27] MEDS: SODIUM CHLORIDE 0.9% IV 1,000 ML 999 ML IV CONT (21:52)
[2020-11-27 21:57] LABS: Ammonia < 9 umol/L (9-30)
[2020-11-27 21:58] LABS: Alanine Aminotransferase 12 U/L (4-50); Albumin Level 3.5 g/dL (3.5-5.1); Alkaline Phosphatase 129 U/L (38-126); Anion Gap 5 mmol/L (8-16); Aspartate Amino Transferase 20 U/L (17-59); Bilirubin,Total 0.5 mg/dL (0.2-1.3); Blood Urea Nitrogen 21 mg/dL (9-20); Calcium 9.1 mg/dL (8.4-10.2); Carbon Dioxide 31 mmol/L (22-30); Chloride 100 mmol/L (98-107); Estimated CRCL calculation 52 ml/min; Estimated Glomerular Filt Rate > 60; Glucose 116 mg/dL (65-110); Potassium 4.2 mmol/L (3.4-5.0); Sodium 136 mmol/L (137-145)
[2020-11-27 22:11] LABS: Add Urine Microscopic? YES; Appearance Urine Cloudy (Clear); Bacteria Urine Trace /hpf; Bilirubin Urine Negative (Negative); Blood Urine 1+ (Negative); Color Urine Yellow (Yellow); Glucose Urine UA Negative (Negative); Ketones Urine Negative (Negative); Leukocyte Esterase Ur 3+ LEU/UL (Negative); Mucus Urine Rare /lpf; Nitrate Urine Positive (Negative); Protein Urine Negative (Negative); Specific Grav Ur 1.016 (1.001-1.035); Squamous Epithelial Cell Urine Occasional /hpf (Few); WBC Urine >75 /hpf
[2020-11-27 22:53] VITALS: BP 158/96; PULSE 82; RESP 18; O2SAT 97
--- NOTE | 2020-11-27 22:58 | ED.AMS ---
HPI - Altered Mental Status General Chief Complaint: Altered Mental Status Stated Complaint: ams recent uti with no meds Time Seen by Provider: 11/27/20 20:57 Source: patient and family History of Present Illness HPI narrative: Patient presents with altered mental status. Patient is in a nursing facility diagnosed with a urinary tract infection but is not received any antibiotics. The son is noted increase in his mental status over the past 24 hours he becomes more confused and agitated so he was brought into the ER for evaluation. Patient has a history of dementia coronary disease CABG hypertension. Patient is unsure why he is here in the ER Related Data Home Medications Medication Instructions Recorded Confirmed mupirocin 2 applic TOPICAL DAILY 09/09/20 11/21/20 Allergies Allergy/AdvReac Type Severity Reaction Status Date / Time Penicillins Allergy Unknown unknown Verified 11/21/20 11:02 sulfanilamide Allergy Unknown Unknown Verified 11/21/20 11:02 nitrofurantoin AdvReac Unknown Hallucinati Verified 11/21/20 11:02 ng Review of Systems Review of Systems: ROS unobtainable: Yes unobtainable due to mental status (Patient has dementia answers questions with tangential thoughts) [facility] Past Medical History Medical History BMI 32.0-32.9,adult Chronic anemia Coronary artery disease Status post 2 vessel CABG in 1997. Degenerative arthritis of knee, bilateral Degenerative joint disease of knee Essential hypertension Fracture of thumb, right, closed Frequent falls Frequent urinary tract infections On prophylactic Bactrim q.h.s. Gait instability Gastroesophageal reflux disease Hearing loss Hyperlipidemia Nephrolithiasis Osteoarthritis Osteoarthritis of right knee Overactive bladder Primary osteoarthritis of both knees Shingles Type 2 diabetes mellitus Hemoglobin A1c was 6.2% in July 2019. Surgical History Surgical History History of coronary artery bypass graft Two vessel CABG in 1997. Status post tendon repair Family History Family History Mother Family history of malignant neoplasm Sibling Family history of diabetes mellitus in first degree relative Father Family history of coronary artery disease Other Diabetes mellitus Social History Social History Social History: Surrogate decision maker: Esha Story, daughter. Code status: Full code. Smoking packs per day: 1.5 Smoking cigarettes per day: 30.0 Years smoked: 30 Smoking pack-years: 45.00 Smoking status: Former smoker Tobacco type: cigarettes Second hand tobacco smoke exposure: No Smoking end date: 02/23/77 Alcohol intake: never Substance use: never Substance use type: does not use Additional living arrangements comments: Resides in [place] with his daughter and granddaughter. 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 Gender identity (if verbalized by the patient): Male Sexual Orientation (if Verbalized by the Patient): Straight or Heterosexual Spiritual care concerns: No Exam Narrative: GENERAL: Well-appearing, well-nourished, and in no acute distress. HEAD: Normocephalic, atraumatic. EYES: PERRLA and EOMI. ENT: Nares clear, no rhinorrhea or epistaxis. Mucous membranes moist. NECK: Supple. No masses. No JVD CHEST: Clear to auscultation. No respiratory distress. No wheezes rales or rhonchi HEART: Regular tachycardia. Normal peripheral pulses. ABDOMEN: Soft, nontender, nondistended, normal active bowel sounds. EXTREMITIES: Limited range of motion of right hip due to pain SKIN: Warm, dry, no rash. NEURO: Patient is alert oriented to self and year. PSYCH: Normal mood and affect. Course Reevaluat
[2020-11-28] VITALS (7 sets, daily range): BP systolic 100–148; BP diastolic 57–94; PULSE 93–120; RESP 20–28; TEMP 35.2–36.9; O2SAT 94–97; BMI 27.4
[2020-11-28] MEDS: fentaNYL CITRATE INJ (*CRX) 100 MCG/2 ML VIAL 50 MCG IV PUSH (00:26)
[2020-11-28] MEDS: SODIUM CHLORIDE 0.9% IV 1,000 ML 125 ML IV CONT (01:06)
--- NOTE | 2020-11-28 01:46 | PM.IMHP ---
H&P: HPI History of Present Illness Date/Time: 11/28/20 01:46 Chief Complaint: Altered mental status Narrative: Patient is here with altered mental status. Patient is a [facility] of a [facility] and has underlying dementia. Most of the history is taken from the medical records as patient is a very poor historian due to his underlying dementia. He is not able to provide me with any history of present illness. Is apparently diagnosed urinary tract infection in the nursing facility but has not been on antibiotics. The son noted his mental status being altered and was more confused and agitated was brought in to the ER for evaluation. He knows that he is in [facility] which is in [facility]. He states that he is from [place] and has moved in to [place] currently is able to provide me his date of but not able to give me the current date and time. In the ER his workup has been suggestive of mild leukocytosis with urinary tract infection. CT head was negative his admitted for further evaluation and management. Review of Systems Review of Systems: - CONSTITUTIONAL: Denies weight loss, fever and chills. - HEENT: Denies changes in vision and hearing - RESPIRATORY: Denies SOB and cough. - CV: Denies palpitations and CP. - GI: Denies abdominal pain, nausea, vomiting and diarrhea. - : Denies dysuria and urinary frequency. - MSK: Denies myalgia and joint pain. - SKIN: Denies rash and pruritus. - NEUROLOGICAL: Denies headache and syncope. - PSYCHIATRIC: Denies recent changes in mood. Denies anxiety and depression. All systems reviewed & are unremarkable except as noted in HPI and below ROS unobtainable: Yes other (Unreliable due to his dementia) Constitutional: Constitutional: Reports fatigue and Reports weakness Neurologic: Reports weakness Endocrine: Endocrine: Reports fatigue [facility] Past Medical History Medical History BMI 32.0-32.9,adult Chronic anemia Coronary artery disease Status post 2 vessel CABG in 1997. Degenerative arthritis of knee, bilateral Degenerative joint disease of knee Essential hypertension Fracture of thumb, right, closed Frequent falls Frequent urinary tract infections On prophylactic Bactrim q.h.s. Gait instability Gastroesophageal reflux disease Hearing loss Hyperlipidemia Nephrolithiasis Osteoarthritis Osteoarthritis of right knee Overactive bladder Primary osteoarthritis of both knees Shingles Type 2 diabetes mellitus Hemoglobin A1c was 6.2% in July 2019. Surgical History Surgical History History of coronary artery bypass graft Two vessel CABG in 1997. Status post tendon repair Family History Family History Mother Family history of malignant neoplasm Sibling Family history of diabetes mellitus in first degree relative Father Family history of coronary artery disease Other Diabetes mellitus Social History Social History Social History: Surrogate decision maker: Esha Story, daughter. Code status: Full code. Smoking packs per day: 1.5 Smoking cigarettes per day: 30.0 Years smoked: 30 Smoking pack-years: 45.00 Smoking status: Former smoker Tobacco type: cigarettes Second hand tobacco smoke exposure: No Smoking end date: 02/23/77 Alcohol intake: never Substance use: never Substance use type: does not use Additional living arrangements comments: Resides in [place] with his daughter and granddaughter. 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. Gender identity (if verbalized by the patient): Male Sexual Orientation (if Verbalized by the Patient): Straight or Heterosexual Spiritual care concerns: No Meds Home Me
[2020-11-28 08:06] LABS: Glucose Point of Care 104 mg/dl (65-105)
[2020-11-28 12:10] LABS: Glucose Point of Care 120 mg/dl (65-105)
--- NOTE | 2020-11-28 15:25 | PCPTNOTE ---
attempted PT evaluation; RN reports pt just returned to bed and is agitated. Hold PT eval today;
[2020-11-28 17:00] LABS: Glucose Point of Care 163 mg/dl (65-105)
[2020-11-28] MEDS: FERROUS SULFATE 324 MG TABLET PO (17:30)
[2020-11-28] MEDS: metFORMIN HCL 500 MG TABLET PO (17:30)
[2020-11-28] MEDS: DONEPEZIL HCL 5 MG TABLET PO (20:42)
[2020-11-28] MEDS: MELATONIN 5 MG TABLET PO (20:42)
[2020-11-28] MEDS: HYDROcodone/acetaminophen (*CRX) 5-325 MG TABLET 1 TAB PO (21:19)
[2020-11-28] MEDS: CYCLOBENZAPRINE HCL 5 MG TABLET PO (21:47)
[2020-11-28 22:52] LABS: Glucose Point of Care 125 mg/dl (65-105)
[2020-11-28] MEDS: SODIUM CHLORIDE 0.9% IV 1,000 ML 75 ML IV CONT (23:54)
[2020-11-29 05:59] VITALS: BP 136/97; PULSE 93; RESP 20; TEMP 36.7; O2SAT 100
[2020-11-29 07:59] LABS: Glucose Point of Care 93 mg/dl (65-105)
[2020-11-29] MEDS: metFORMIN HCL 500 MG TABLET PO ×2 (10:05→17:58)
[2020-11-29] MEDS: FERROUS SULFATE 324 MG TABLET PO ×2 (10:05→17:58)
[2020-11-29] MEDS: OXYBUTYNIN CHLORIDE 5 MG TABLET PO (10:05)
[2020-11-29] MEDS: FUROSEMIDE 20 MG TABLET PO (10:05)
[2020-11-29] MEDS: ATORVASTATIN 20 MG TABLET PO (10:05)
[2020-11-29 10:06] VITALS: PULSE 110
[2020-11-29] MEDS: LORATADINE 10 MG TABLET PO (10:06)
[2020-11-29] MEDS: atenoloL 50 MG TABLET PO (10:06)
[2020-11-29] MEDS: CITALOPRAM HYDROBROMIDE 20 MG TABLET PO (10:06)
[2020-11-29] MEDS: ASPIRIN 81 MG ENTERIC TABLET PO (10:06)
[2020-11-29] MEDS: PANTOPRAZOLE SOD SESQUIHYDRATE 20 MG TAB PO (10:06)
[2020-11-29] MEDS: polyethylene glycoL 3350 17 GM POWD.PACK PO (10:07)
[2020-11-29] MEDS: CYANOCOBALAMIN 1,000 MCG TABLET 5000 MCG PO (10:07)
--- NOTE | 2020-11-29 12:56 | PM.IMPN ---
Progress Note: A&P Assessment and Plan (1) Acute UTI: Code(s): N39.0 - Urinary tract infection, site not specified Status: Acute Assessment and Plan: UA positive for UTI treat UTI mild leukocytosis noted lactic acid is normal underlying dementia, pt is on iv rocephin (2) Altered behavior: Code(s): R46.89 - Other symptoms and signs involving appearance and behavior Status: Resolved Assessment and Plan: Behavior stabilized since starting IV abx (3) Type 2 diabetes mellitus with microalbuminuria: Qualifiers: Diabetes mellitus manager long term care insulin use: without manager long term care use Qualified Code(s): E11.29 - Type 2 diabetes mellitus with other diabetic kidney complication; R80.9 - Proteinuria, unspecified Code(s): E11.29 - Type 2 diabetes mellitus with other diabetic kidney complication; R80.9 - Proteinuria, unspecified Status: Chronic Assessment and Plan: SSI hold metformin (4) Atherosclerosis of coronary artery bypass graft(s) without angina pectoris: Qualifiers: [place] vs. transplanted heart: [place] heart Qualified Code(s): I25.810 - Atherosclerosis of coronary artery bypass graft(s) without angina pectoris Code(s): I25.810 - Atherosclerosis of coronary artery bypass graft(s) without angina pectoris Status: Acute (5) Coronary artery disease: Code(s): I25.10 - Atherosclerotic heart disease of [place] coronary artery without angina pectoris Status: Acute (6) History of coronary artery bypass graft: Code(s): Z95.1 - Presence of aortocoronary bypass graft Status: Chronic (7) Old myocardial infarction: Code(s): I25.2 - Old myocardial infarction Status: Acute (8) Dyslipidemia: Code(s): E78.5 - Hyperlipidemia, unspecified Status: Acute (9) Hypertensive heart disease without heart failure: Code(s): I11.9 - Hypertensive heart disease without heart failure Status: Acute Assessment and Plan: coronary artery disease status post CABG in 1997 continue home medication (10) Primary osteoarthritis of both knees: Code(s): M17.0 - Bilateral primary osteoarthritis of knee Status: Chronic Assessment and Plan: BL knees (11) Frequent urinary tract infections: Code(s): N39.0 - Urinary tract infection, site not specified Status: Acute Assessment and Plan: in the past (12) Essential hypertension: Code(s): I10 - Essential (primary) hypertension Status: Chronic Assessment and Plan: essential hypertension home medication (13) Altered mental status: Code(s): R41.82 - Altered mental status, unspecified Status: Acute Assessment and Plan: altered mental status CT head negative for any acute findings. UTI with underlying dementia Additional Plan # anemia chronic no blood loss # stage I decubitus ulcer on left buttock area continue to monitor and wound care # hyperlipidemia # right hip fracture 08/2020 # dementia Subjective Date/time seen: 11/29/20 12:56 Interval history: Patient is here with altered mental status. Patient is a resident of a [facility] and has underlying dementia. Most of the history is taken from the medical records as patient is a very poor historian due to his underlying dementia. Admitted with UTI. pt is pleasantly confused. Review of Systems Review of Systems: All systems reviewed & are unremarkable except as noted in HPI and below Exam Narrative: GENERAL: Well-appearing, well-nourished, and in no acute distress. Very talkative NECK: Supple. No masses. No JVD CHEST: Clear to auscultation. No respiratory distress. No wheezes rales or rhonchi HEART: Regular rate and Normal peripheral pulses. ABDOMEN: Soft, nontender, nondistended, normal active bowel sounds. SKIN: Warm, dry, no rash. NEURO: Patient is alert to place no time or person PSYCH: Pleasantly confused Object
[2020-11-29 13:15] LABS: Glucose Point of Care 115 mg/dl (65-105)
[2020-11-29 14:00] VITALS: BP 91/68; PULSE 73; RESP 19; TEMP 36.7; O2SAT 73
[2020-11-29] MEDS: HYDROcodone/acetaminophen (*CRX) 5-325 MG TABLET 1 TAB PO ×2 (14:05→22:50)
[2020-11-29 16:21] LABS: Glucose Point of Care 131 mg/dl (65-105)
[2020-11-29] MEDS: MELATONIN 5 MG TABLET PO (20:14)
[2020-11-29] MEDS: DONEPEZIL HCL 5 MG TABLET PO (20:14)
[2020-11-29 22:00] VITALS: BP 134/89; PULSE 108; RESP 18; TEMP 36.9; O2SAT 96
[2020-11-30 01:32] VITALS: PULSE 63; O2SAT 95
[2020-11-30 02:52] LABS: Glucose Point of Care 150 mg/dl (65-105)
[2020-11-30 06:00] VITALS: BP 149/75; PULSE 90; RESP 18; TEMP 36.2; O2SAT 97
[2020-11-30 06:56] LABS: Hematocrit 34.4 % (42.0-52.0); Hemoglobin 10.8 g/dL (14.0-18.0); Mean Corpuscular HGB Conc 31.4 g/dl (32-36); Mean Corpuscular Hemoglobin 28.3 pg (26-34); Mean Corpuscular Volume 90.1 fl (80-100); Mean Platelet Volume 8.7 fl (7.4-10.4); Platelet Count Result 367 k/mm3 (150-375); Red Blood Count 3.82 M/mm3 (4.6-6.20); White Blood Count 9.4 K/mm3 (4.5-10.0)
[2020-11-30 07:09] LABS: Anion Gap 4 mmol/L (8-16); Blood Urea Nitrogen 17 mg/dL (9-20); Carbon Dioxide 29 mmol/L (22-30); Chloride 103 mmol/L (98-107); Estimated CRCL calculation 52 ml/min; Estimated Glomerular Filt Rate > 60; Glucose 105 mg/dL (65-110); Potassium 4.2 mmol/L (3.4-5.0); Sodium 136 mmol/L (137-145)
[2020-11-30 07:42] LABS: Glucose Point of Care 93 mg/dl (65-105)
[2020-11-30 08:00] VITALS: PULSE 88; RESP 18; O2SAT 97
[2020-11-30] MEDS: FERROUS SULFATE 324 MG TABLET PO ×2 (08:57→17:52)
[2020-11-30] MEDS: ASPIRIN 81 MG ENTERIC TABLET PO (08:58)
[2020-11-30] MEDS: CITALOPRAM HYDROBROMIDE 20 MG TABLET PO (08:58)
[2020-11-30] MEDS: ATORVASTATIN 20 MG TABLET PO (08:58)
[2020-11-30] MEDS: OXYBUTYNIN CHLORIDE 5 MG TABLET PO (08:58)
[2020-11-30] MEDS: CYANOCOBALAMIN 1,000 MCG TABLET 5000 MCG PO (08:58)
[2020-11-30] MEDS: FUROSEMIDE 20 MG TABLET PO (08:58)
[2020-11-30 08:59] VITALS: PULSE 88
[2020-11-30] MEDS: metFORMIN HCL 500 MG TABLET PO ×2 (08:59→17:53)
[2020-11-30] MEDS: LORATADINE 10 MG TABLET PO (08:59)
[2020-11-30] MEDS: PANTOPRAZOLE SOD SESQUIHYDRATE 20 MG TAB PO (08:59)
[2020-11-30] MEDS: polyethylene glycoL 3350 17 GM POWD.PACK PO (08:59)
[2020-11-30] MEDS: atenoloL 50 MG TABLET PO (08:59)
[2020-11-30] MEDS: LIDOCAINE 5% PATCH 1 PATCH TRANSDERM (09:03)
[2020-11-30] MEDS: HYDROcodone/acetaminophen (*CRX) 5-325 MG TABLET 1 TAB PO ×2 (09:07→20:28)
--- NOTE | 2020-11-30 10:52 | PCNFU ---
Nutrition Follow-Up Complete: Inadequate Oral Intake as related to UTI as evidenced by poor po intake. Goal: Meet estimated nutritional needs Patient is progressing towards goal. We will continue current goal. Pt current nutrition is Heart Healthy with Ensure compact BID. Last recorded weight is 91.8 kg, no new weight to report. Bowel Motility:No BM documented. Labs Reviewed: Na 136, Hct 34.4, Hgb 10.8 Meds Noted:Miralax,Lasix, Lipitor, Rocephin, [place], Vit B12, Celexa. Additional Notes: Patient seen today for nutrition follow up. He was eating breakfast tray. Intake has been greater than 75% of meals. Diet supplements continue of Ensure compact BID providing patient with 220 kcals and 9 gms protein. Agree with diet orders. Monitoring: Will monitor every 5 days.
[2020-11-30 13:30] LABS: Glucose Point of Care 185 mg/dl (65-105)
--- NOTE | 2020-11-30 13:32 | PM.IMPN ---
Progress Note: A&P Assessment and Plan (1) Acute UTI: Code(s): N39.0 - Urinary tract infection, site not specified Status: Acute Assessment and Plan: UA positive for UTI treat UTI, Wcc normalised, underlying dementia, pt is on iv cefepime (2) Altered behavior: Code(s): R46.89 - Other symptoms and signs involving appearance and behavior Status: Resolved Assessment and Plan: Behavior stabilized since starting IV abx (3) Type 2 diabetes mellitus with microalbuminuria: Qualifiers: Diabetes mellitus implementation specialist insulin use: without care home use Qualified Code(s): E11.29 - Type 2 diabetes mellitus with other diabetic kidney complication; R80.9 - Proteinuria, unspecified Code(s): E11.29 - Type 2 diabetes mellitus with other diabetic kidney complication; R80.9 - Proteinuria, unspecified Status: Chronic Assessment and Plan: SSI hold metformin restart on dischrage (4) Atherosclerosis of coronary artery bypass graft(s) without angina pectoris: Qualifiers: [place] vs. transplanted heart: [place] heart Qualified Code(s): I25.810 - Atherosclerosis of coronary artery bypass graft(s) without angina pectoris Code(s): I25.810 - Atherosclerosis of coronary artery bypass graft(s) without angina pectoris Status: Acute (5) Coronary artery disease: Code(s): I25.10 - Atherosclerotic heart disease of [place] coronary artery without angina pectoris Status: Acute (6) History of coronary artery bypass graft: Code(s): Z95.1 - Presence of aortocoronary bypass graft Status: Chronic (7) Old myocardial infarction: Code(s): I25.2 - Old myocardial infarction Status: Acute (8) Dyslipidemia: Code(s): E78.5 - Hyperlipidemia, unspecified Status: Acute (9) Hypertensive heart disease without heart failure: Code(s): I11.9 - Hypertensive heart disease without heart failure Status: Acute Assessment and Plan: coronary artery disease status post CABG in 1997 continue home medication (10) Primary osteoarthritis of both knees: Code(s): M17.0 - Bilateral primary osteoarthritis of knee Status: Chronic Assessment and Plan: BL knees (11) Frequent urinary tract infections: Code(s): N39.0 - Urinary tract infection, site not specified Status: Acute Assessment and Plan: in the past (12) Essential hypertension: Code(s): I10 - Essential (primary) hypertension Status: Chronic Assessment and Plan: essential hypertension home medication (13) Altered mental status: Code(s): R41.82 - Altered mental status, unspecified Status: Acute Assessment and Plan: altered mental status CT head negative for any acute findings. UTI with underlying dementia Subjective Date/time seen: 11/30/20 13:32 Interval history: Patient is here with altered mental status. Patient is a resident of a [facility] and has underlying dementia. Most of the history is taken from the medical records as patient is a very poor historian due to his underlying dementia. Admitted with UTI. pt is pleasantly confused. UC is positive for klebsiella pt needs to change to IV cefepime. Pt can return back to his facility tomorrow. Review of Systems Review of Systems: All systems reviewed & are unremarkable except as noted in HPI and below Exam Narrative: GENERAL: Well-appearing, well-nourished, and in no acute distress. Very talkative NECK: Supple. No masses. No JVD CHEST: Clear to auscultation. No respiratory distress. No wheezes rales or rhonchi HEART: Regular rate and Normal peripheral pulses. ABDOMEN: Soft, nontender, nondistended, normal active bowel sounds. SKIN: Warm, dry, no rash. NEURO: Patient is alert to place no time or person PSYCH: Pleasantly confused Objective Data Vital Signs Vital Signs: Vital Signs - 24 hr 11/29/20 14:00 11/29/20 22:00 1
[2020-11-30 14:00] VITALS: BP 110/70; PULSE 56; RESP 16; TEMP 36.7; O2SAT 95
[2020-11-30] MEDS: ONDANSETRON INJ 4 MG/2 ML VIAL IV PUSH (15:03)
[2020-11-30 18:15] LABS: Glucose Point of Care 111 mg/dl (65-105)
[2020-11-30] MEDS: MELATONIN 5 MG TABLET PO (20:28)
[2020-11-30] MEDS: DONEPEZIL HCL 5 MG TABLET PO (20:28)
[2020-11-30 21:38] VITALS: BP 128/76; PULSE 101; RESP 18; TEMP 36.8; O2SAT 98
[2020-11-30 21:55] LABS: Glucose Point of Care 117 mg/dl (65-105)
[2020-12-01 05:28] VITALS: BP 124/49; PULSE 68; RESP 18; TEMP 36.5; O2SAT 98
[2020-12-01] MEDS: HYDROcodone/acetaminophen (*CRX) 5-325 MG TABLET 1 TAB PO ×2 (05:53→17:55)
[2020-12-01 06:58] LABS: Hematocrit 31.1 % (42.0-52.0); Hemoglobin 9.9 g/dL (14.0-18.0); Mean Corpuscular HGB Conc 31.8 g/dl (32-36); Mean Corpuscular Hemoglobin 28.3 pg (26-34); Mean Corpuscular Volume 88.9 fl (80-100); Mean Platelet Volume 8.4 fl (7.4-10.4); Platelet Count Result 347 k/mm3 (150-375); Red Cell Distribution Width 16.1 % (11.5-14.5); White Blood Count 8.4 K/mm3 (4.5-10.0)
[2020-12-01 07:09] LABS: Anion Gap 3 mmol/L (8-16); Blood Urea Nitrogen 21 mg/dL (9-20); Calcium 8.7 mg/dL (8.4-10.2); Carbon Dioxide 31 mmol/L (22-30); Chloride 100 mmol/L (98-107); Estimated CRCL calculation 52 ml/min; Estimated Glomerular Filt Rate > 60; Glucose 97 mg/dL (65-110); Potassium 3.9 mmol/L (3.4-5.0); Sodium 134 mmol/L (137-145)
[2020-12-01 08:00] VITALS: PULSE 64; RESP 18; O2SAT 98
[2020-12-01 08:32] LABS: Glucose Point of Care 96 mg/dl (65-105)
[2020-12-01] MEDS: FERROUS SULFATE 324 MG TABLET PO ×2 (08:59→17:10)
[2020-12-01] MEDS: CYANOCOBALAMIN 1,000 MCG TABLET 5000 MCG PO (08:59)
[2020-12-01] MEDS: metFORMIN HCL 500 MG TABLET PO (08:59)
[2020-12-01] MEDS: ATORVASTATIN 20 MG TABLET PO (08:59)
[2020-12-01 09:00] VITALS: PULSE 64
[2020-12-01] MEDS: LIDOCAINE 5% PATCH 1 PATCH TRANSDERM (09:00)
[2020-12-01] MEDS: LORATADINE 10 MG TABLET PO (09:00)
[2020-12-01] MEDS: ASPIRIN 81 MG ENTERIC TABLET PO (09:00)
[2020-12-01] MEDS: PANTOPRAZOLE SOD SESQUIHYDRATE 20 MG TAB PO (09:00)
[2020-12-01] MEDS: CITALOPRAM HYDROBROMIDE 20 MG TABLET PO (09:00)
[2020-12-01] MEDS: OXYBUTYNIN CHLORIDE 5 MG TABLET PO (09:00)
[2020-12-01] MEDS: atenoloL 50 MG TABLET PO (09:00)
[2020-12-01] MEDS: FUROSEMIDE 20 MG TABLET PO (09:00)
[2020-12-01] MEDS: polyethylene glycoL 3350 17 GM POWD.PACK PO (09:01)
[2020-12-01 12:37] LABS: Glucose Point of Care 131 mg/dl (65-105)
--- NOTE | 2020-12-01 13:23 | PM.IMPN ---
Progress Note: A&P Assessment and Plan (1) Acute UTI: Code(s): N39.0 - Urinary tract infection, site not specified Status: Acute Assessment and Plan: UA positive for UTI. Urine grew Klebsiella which is ESBL. Cefepime will be stopped. He will be started on ertapenem. He will need treatment for 5 days. Will try to find out if his intermediate can provided him IV antibiotics. (2) Altered behavior: Code(s): R46.89 - Other symptoms and signs involving appearance and behavior Status: Resolved Assessment and Plan: His mental status has improved. Unclear baseline but he does not seem to be agitated or confused. (3) Type 2 diabetes mellitus with microalbuminuria: Qualifiers: Diabetes mellitus long term care pharmacist insulin use: without senior care use Qualified Code(s): E11.29 - Type 2 diabetes mellitus with other diabetic kidney complication; R80.9 - Proteinuria, unspecified Code(s): E11.29 - Type 2 diabetes mellitus with other diabetic kidney complication; R80.9 - Proteinuria, unspecified Status: Chronic Assessment and Plan: Insulin sliding scale. Continue to monitor fingerstick sugars. hold metformin restart on dischrage (4) Atherosclerosis of coronary artery bypass graft(s) without angina pectoris: Qualifiers: [place] vs. transplanted heart: [place] heart Qualified Code(s): I25.810 - Atherosclerosis of coronary artery bypass graft(s) without angina pectoris Code(s): I25.810 - Atherosclerosis of coronary artery bypass graft(s) without angina pectoris Status: Acute (5) Coronary artery disease: Code(s): I25.10 - Atherosclerotic heart disease of [place] coronary artery without angina pectoris Status: Acute Assessment and Plan: Is below (6) History of coronary artery bypass graft: Code(s): Z95.1 - Presence of aortocoronary bypass graft Status: Chronic Assessment and Plan: As below (7) Old myocardial infarction: Code(s): I25.2 - Old myocardial infarction Status: Acute Assessment and Plan: As below (8) Dyslipidemia: Code(s): E78.5 - Hyperlipidemia, unspecified Status: Acute Assessment and Plan: Continue Lipitor (9) Hypertensive heart disease without heart failure: Code(s): I11.9 - Hypertensive heart disease without heart failure Status: Acute Assessment and Plan: coronary artery disease status post CABG in 1997 continue home medication with atenolol, diltiazem, aspirin and Lipitor (10) Primary osteoarthritis of both knees: Code(s): M17.0 - Bilateral primary osteoarthritis of knee Status: Chronic Assessment and Plan: Continue to monitor. Pain Tylenol. (11) Frequent urinary tract infections: Code(s): N39.0 - Urinary tract infection, site not specified Status: Acute Assessment and Plan: Multiple urinary tract infection in the past. Continue to monitor. (12) Essential hypertension: Code(s): I10 - Essential (primary) hypertension Status: Chronic Assessment and Plan: Continue home medications with atenolol and diltiazem continue Lasix. Continue to monitor hemodynamics closely. (13) Altered mental status: Code(s): R41.82 - Altered mental status, unspecified Status: Acute Assessment and Plan: altered mental status CT head negative for any acute findings. UTI with underlying dementia which is likely the cause for his mental status change. Now his mental status has improved. Additional Plan stage I decubitus ulcer on left buttock area continue to monitor and wound care DVT prophylaxis with subQ heparin Code status DNR DNI Disposition back to intermediate if intermediate can provide him IV ertapenem for total of 5 days. Alternatively he will remain in the hospital until conclusion of his antibiotic course. Subjective Date/time seen: 12/01/20 13:23
[2020-12-01 14:00] VITALS: BP 100/76; PULSE 64; RESP 16; TEMP 37; O2SAT 98
[2020-12-01] MEDS: ERTAPENEM 1 GM/NS 50 ML 1 GM/50 ML BAG IVPB (17:10)
[2020-12-01 18:51] LABS: Glucose Point of Care 96 mg/dl (65-105)
[2020-12-01] MEDS: DONEPEZIL HCL 5 MG TABLET PO (20:03)
[2020-12-01] MEDS: HYDROcodone/acetaminophen (*CRX) 7.5-325 MG TABLET 1 TAB PO (20:03)
[2020-12-01] MEDS: MELATONIN 5 MG TABLET PO (20:03)
[2020-12-01 21:38] VITALS: BP 137/68; PULSE 95; RESP 18; TEMP 37; O2SAT 94
[2020-12-02 02:25] LABS: Glucose Point of Care 86 mg/dl (65-105)
[2020-12-02] MEDS: HYDROcodone/acetaminophen (*CRX) 7.5-325 MG TABLET 1 TAB PO ×2 (04:19→15:51)
[2020-12-02 05:27] VITALS: BP 118/60; PULSE 63; RESP 18; TEMP 36.6; O2SAT 96
[2020-12-02 08:28] LABS: Glucose Point of Care 91 mg/dl (65-105)
[2020-12-02] MEDS: FERROUS SULFATE 324 MG TABLET PO ×2 (08:50→15:53)
[2020-12-02] MEDS: CITALOPRAM HYDROBROMIDE 20 MG TABLET PO (08:50)
[2020-12-02] MEDS: CYANOCOBALAMIN 1,000 MCG TABLET 5000 MCG PO (08:50)
[2020-12-02] MEDS: PANTOPRAZOLE SOD SESQUIHYDRATE 20 MG TAB PO (08:50)
[2020-12-02 08:51] VITALS: PULSE 64
[2020-12-02] MEDS: atenoloL 50 MG TABLET PO (08:51)
[2020-12-02] MEDS: ATORVASTATIN 20 MG TABLET PO (08:51)
[2020-12-02] MEDS: OXYBUTYNIN CHLORIDE 5 MG TABLET PO (08:51)
[2020-12-02] MEDS: ASPIRIN 81 MG ENTERIC TABLET PO (08:51)
[2020-12-02] MEDS: FUROSEMIDE 20 MG TABLET PO (08:51)
[2020-12-02] MEDS: LORATADINE 10 MG TABLET PO (08:52)
[2020-12-02] MEDS: polyethylene glycoL 3350 17 GM POWD.PACK PO (08:52)
[2020-12-02] MEDS: LIDOCAINE 5% PATCH 1 PATCH TRANSDERM (08:52)
[2020-12-02 11:54] LABS: Glucose Point of Care 136 mg/dl (65-105)
--- NOTE | 2020-12-02 12:33 | PM.IMPN ---
Progress Note: A&P Assessment and Plan (1) Acute UTI: Code(s): N39.0 - Urinary tract infection, site not specified Status: Acute Assessment and Plan: UA positive for UTI. Urine grew ESBL Klebsiella. He was initially on cefepime. He was transitioned to ertapenem IV. He will need treatment for 5 days. Spoke to care coordination. It seems that group home can get ertapenem on Thursday and can continue his treatment. He will need 2 more days of ertapenem in the group home if he can get his dose of ertapenem tomorrow before he gets discharged to group home. (2) Altered behavior: Code(s): R46.89 - Other symptoms and signs involving appearance and behavior Status: Resolved Assessment and Plan: His mental status has improved. Unclear baseline but he does not seem to be agitated or confused. (3) Type 2 diabetes mellitus with microalbuminuria: Qualifiers: Diabetes mellitus computer terminal operator insulin use: without computer terminal operator use Qualified Code(s): E11.29 - Type 2 diabetes mellitus with other diabetic kidney complication; R80.9 - Proteinuria, unspecified Code(s): E11.29 - Type 2 diabetes mellitus with other diabetic kidney complication; R80.9 - Proteinuria, unspecified Status: Chronic Assessment and Plan: Insulin sliding scale. Continue to monitor fingerstick sugars. Hold metformin which will be restarted at the time of discharge. (4) Atherosclerosis of coronary artery bypass graft(s) without angina pectoris: Qualifiers: [place] vs. transplanted heart: [place] heart Qualified Code(s): I25.810 - Atherosclerosis of coronary artery bypass graft(s) without angina pectoris Code(s): I25.810 - Atherosclerosis of coronary artery bypass graft(s) without angina pectoris Status: Acute Assessment and Plan: Continue aspirin, atenolol and Lipitor. No active issues. He is not complaining of any chest pain. (5) Coronary artery disease: Code(s): I25.10 - Atherosclerotic heart disease of [place] coronary artery without angina pectoris Status: Acute Assessment and Plan: As below (6) History of coronary artery bypass graft: Code(s): Z95.1 - Presence of aortocoronary bypass graft Status: Chronic Assessment and Plan: As below (7) Old myocardial infarction: Code(s): I25.2 - Old myocardial infarction Status: Acute Assessment and Plan: As below (8) Dyslipidemia: Code(s): E78.5 - Hyperlipidemia, unspecified Status: Acute Assessment and Plan: Continue Lipitor (9) Hypertensive heart disease without heart failure: Code(s): I11.9 - Hypertensive heart disease without heart failure Status: Acute Assessment and Plan: Coronary artery disease status post CABG in 1997 continue home medication with atenolol, diltiazem, aspirin and Lipitor (10) Primary osteoarthritis of both knees: Code(s): M17.0 - Bilateral primary osteoarthritis of knee Status: Chronic Assessment and Plan: Continue to monitor. Pain control with Tylenol. (11) Frequent urinary tract infections: Code(s): N39.0 - Urinary tract infection, site not specified Status: Acute Assessment and Plan: Multiple urinary tract infection in the past. Continue to monitor. (12) Essential hypertension: Code(s): I10 - Essential (primary) hypertension Status: Chronic Assessment and Plan: Continue home medications with atenolol and diltiazem. Continue p.o. Lasix at his baseline does. Continue to monitor hemodynamics closely. (13) Altered mental status: Code(s): R41.82 - Altered mental status, unspecified Status: Acute Assessment and Plan: altered mental status CT head negative for any acute findings. UTI with underlying dementia which is likely the cause for his mental status change. Now his mental status has improved. Addition
[2020-12-02 14:00] VITALS: BP 102/39; PULSE 86; RESP 18; TEMP 36.4; O2SAT 95
[2020-12-02] MEDS: ERTAPENEM 1 GM/NS 50 ML 1 GM/50 ML BAG IVPB (15:53)
[2020-12-02 16:50] LABS: Glucose Point of Care 127 mg/dl (65-105)
[2020-12-02] MEDS: DONEPEZIL HCL 5 MG TABLET PO (20:22)
[2020-12-02] MEDS: MELATONIN 5 MG TABLET PO (20:25)
[2020-12-02 21:20] LABS: Glucose Point of Care 119 mg/dl (65-105)
[2020-12-02 22:00] VITALS: BP 114/56; PULSE 90; RESP 18; TEMP 36.6; O2SAT 98
[2020-12-03] MEDS: HYDROcodone/acetaminophen (*CRX) 7.5-325 MG TABLET 1 TAB PO ×2 (01:29→14:33)
[2020-12-03 06:00] VITALS: BP 124/51; PULSE 85; RESP 18; TEMP 36.6; O2SAT 98
[2020-12-03 06:23] LABS: Basophils Absolute Auto 0.1 K/mm3 (0.0-0.1); Basophils Percent Auto 0.6 % (0.2-1.2); Eosinophils Absolute Auto 0.3 K/mm3 (0-0.3); Eosinophils Percent Auto 2.5 % (0-4.4); Hematocrit 32.5 % (42.0-52.0); Hemoglobin 10.6 g/dL (14.0-18.0); Immature Granulocyte Absolute 0.08 K/mm3 (0.00-0.031); Immature Granulocyte Percent A 0.8 % (0-0.5); Lymphocytes Absolute Auto 1.29 K/mm3 (0.9-3.2); Lymphocytes Percent Auto 12.6 % (18.3-44.2); Mean Corpuscular HGB Conc 32.6 g/dl (32-36); Mean Corpuscular Hemoglobin 28.5 pg (26-34); Mean Corpuscular Volume 87.4 fl (80-100); Mean Platelet Volume 8.6 fl (7.4-10.4); Monocytes Absolute Auto 1.1 K/mm3 (0.1-0.6); Monocytes Percent Auto 10.5 % (2.6-8.5); Neutrophils Absolute Auto 7.5 K/mm3 (1.3-6.7); Platelet Count Result 384 k/mm3 (150-375); Red Blood Count 3.72 M/mm3 (4.6-6.20); Red Cell Distribution Width 15.9 % (11.5-14.5); White Blood Count 10.2 K/mm3 (4.5-10.0)
[2020-12-03 06:25] LABS: Anion Gap 5 mmol/L (8-16); Blood Urea Nitrogen 16 mg/dL (9-20); Calcium 8.7 mg/dL (8.4-10.2); Carbon Dioxide 33 mmol/L (22-30); Chloride 97 mmol/L (98-107); Estimated CRCL calculation 73 ml/min; Estimated Glomerular Filt Rate > 60; Glucose 106 mg/dL (65-110); Potassium 4.1 mmol/L (3.4-5.0); Sodium 135 mmol/L (137-145)
[2020-12-03 08:12] LABS: Glucose Point of Care 105 mg/dl (65-105)
[2020-12-03] MEDS: ASPIRIN 81 MG ENTERIC TABLET PO (08:48)
[2020-12-03] MEDS: PANTOPRAZOLE SOD SESQUIHYDRATE 20 MG TAB PO (08:48)
[2020-12-03] MEDS: CITALOPRAM HYDROBROMIDE 20 MG TABLET PO (08:48)
[2020-12-03] MEDS: CYANOCOBALAMIN 1,000 MCG TABLET 5000 MCG PO (08:48)
[2020-12-03 08:49] VITALS: PULSE 92
[2020-12-03] MEDS: atenoloL 50 MG TABLET PO (08:49)
[2020-12-03] MEDS: FERROUS SULFATE 324 MG TABLET PO ×2 (08:50→17:17)
[2020-12-03] MEDS: ATORVASTATIN 20 MG TABLET PO (08:50)
[2020-12-03] MEDS: LIDOCAINE 5% PATCH 1 PATCH TRANSDERM (08:51)
[2020-12-03] MEDS: FUROSEMIDE 20 MG TABLET PO (08:51)
[2020-12-03] MEDS: OXYBUTYNIN CHLORIDE 5 MG TABLET PO (08:51)
[2020-12-03] MEDS: LORATADINE 10 MG TABLET PO (08:51)
[2020-12-03] MEDS: ACETAMINOPHEN 325 MG TABLET 650 MG PO (08:54)
[2020-12-03] MEDS: polyethylene glycoL 3350 17 GM POWD.PACK PO (08:55)
[2020-12-03 12:17] LABS: Glucose Point of Care 112 mg/dl (65-105)
--- NOTE | 2020-12-03 13:22 | PCOTNOTE ---
Attempted to see patient this pm, however patient declined stating, I'm tired. I'm gonna take a nap.
[2020-12-03 14:00] VITALS: BP 99/47; PULSE 87; RESP 18; TEMP 37.1; O2SAT 95
[2020-12-03] MEDS: ERTAPENEM 1 GM/NS 50 ML 1 GM/50 ML BAG IVPB (14:39)
--- NOTE | 2020-12-03 15:17 | PM.DS ---
DS: Admitting Diagnosis Discharge Date 12/04/2019 Admitting Diagnosis Altered mental status DS: Discharge Diagnosis Discharge Diagnosis (1) Acute UTI: Code(s): N39.0 - Urinary tract infection, site not specified Status: Acute Assessment and Plan: UA abnormal on presentation. He had mild leukocytosis and altered mental status He was started on IV cefepime Urine culture with growth of >100k ESBL Klebsiella oxytoca He was then transitioned to IV Eratpenem based on these results. He will continue IV ertapenem at his nursing facility to complete 5 days of antibiotic therapy (2) Altered behavior: Code(s): R46.89 - Other symptoms and signs involving appearance and behavior Status: Resolved Assessment and Plan: Noted to be more confused and agitated at presentation [place] to be secondary to urinary tract infection He has a history of dementia and at baseline is oriented to self. Mental status improved with treatment of UTI. 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 with no acute intracranial findings (3) Type 2 diabetes mellitus with microalbuminuria: Qualifiers: Diabetes mellitus terminal operator insulin use: without snf use Qualified Code(s): E11.29 - Type 2 diabetes mellitus with other diabetic kidney complication; R80.9 - Proteinuria, unspecified Code(s): E11.29 - Type 2 diabetes mellitus with other diabetic kidney complication; R80.9 - Proteinuria, unspecified Status: Chronic Assessment and Plan: A1c is 6.1 Monitored during hospital stay with Accu-Cheks, sliding scale insulin, and hypoglycemic protocol Continue home metformin on discharge (4) Frequent urinary tract infections: Code(s): N39.0 - Urinary tract infection, site not specified Status: Acute Assessment and Plan: He established with urology Continue home trimethoprim 100 mg daily following completion of IV ertapenem Follow-up with urology as an outpatient as previously scheduled (5) Essential hypertension: Code(s): I10 - Essential (primary) hypertension Status: Chronic Assessment and Plan: Blood pressure reviewed and was well controlled during hospitalization. Continue home antihypertensive regimen (6) Coronary artery disease: Code(s): I25.10 - Atherosclerotic heart disease of [place] coronary artery without angina pectoris Status: Acute Assessment and Plan: History of [place] and CABG. No acute issues during hospitalization. Continue home aspirin, Lipitor, atenolol, Cardizem DS: Summary Hospital Course Hospital Course: Date of admission: 11/27/2020 Date of discharge: 12/03/2020 Jose Angel Story Jr. is an 85-year-old male with a history of frequent UTI, coronary artery disease, type 2 diabetes mellitus, chronic anemia, hypertension, and several other comorbidities who presented to the emergency department on 11/27/2020 from his [facility] with altered mental status, noting to be more confused and agitated over the past 24 hours. On presentation to the emergency department, his vital signs were stable, he was afebrile, he had mild leukocytosis, H&H slightly decreased, mild thrombocytosis, BMP unremarkable, lactic acid 1.0, urinalysis abnormal, CXR no acute findings. He was admitted to the hospitalist service for further evaluation and management. Please see above for further details. He was treated with IV antibiotics for urinary tract infection and will continue with treatment as an outpatient. He was evaluated by PT/OT during his hospital stay. He was not accepted to return to his nursing facility based on his functional status, therefore he will continue therapy at SNF. His mental status returned to baseline. He was feeling well and had no complaints. Given his overall improvement, he was determined to no longer require inpatient care and wa
[2020-12-03 16:20] LABS: EDCOVIDSCREEN Negative (Negative)
[2020-12-03 17:19] LABS: Glucose Point of Care 150 mg/dl (65-105)
== END 2020-12-03 17:35 | DRG 690 ==
LOC: ANHED 23:05 → ANH3MEDSUR 23:36
PROVIDERS: Family Medicine; Internal Medicine Critical Care Medicine; Admitting Provider Internal Medicine; Emergency Provider Emergency Medicine; PCP Family Medicine; Visit Provider Physician Assistant
DX: N39.0 Urinary tract infection, site not specified (principal); B96.89 Other specified bacterial agents as the cause of diseases classified elsewhere; E11.29 Type 2 diabetes mellitus with other diabetic kidney complication; R80.9 Proteinuria, unspecified; Z20.822 Contact with and (suspected) exposure to COVID-19; I25.10 Atherosclerotic heart disease of native coronary artery without angina pectoris; I10 Essential (primary) hypertension; D64.9 Anemia, unspecified; D75.839 Thrombocytosis, unspecified; F03.90 Unspecified dementia, unspecified severity, without behavioral disturbance, psychotic disturbance, mood disturbance, and anxiety; M17.0 Bilateral primary osteoarthritis of knee; R29.6 Repeated falls; K21.9 Gastro-esophageal reflux disease without esophagitis; E78.5 Hyperlipidemia, unspecified; N32.81 Overactive bladder; L89.321 Pressure ulcer of left buttock, stage 1; Z95.1 Presence of aortocoronary bypass graft; Z87.891 Personal history of nicotine dependence; I25.2 Old myocardial infarction
CPT/HCPCS: 36415; 70450; 71045; 73502; 80048; 80053; 81001; 82140; 82948; 83605; 85025; 85027; 87040; 87077; 87086; 87088; 87186; 87426; 93005; 96361; 96365; 96366; 96375; 97110; 97161; 97166; 97530; 97535; 99285; A9270; C9803; G0378; J0131; J0692; J0696; J1335; J2405; J3010; J7030

== ENCOUNTER 2021-03-29 13:17 | Inpatient (IN) | payer OTHER, SELFPAY ==
[2021-03-29] VITALS (8 sets, daily range): BP systolic 94–122; BP diastolic 46–84; PULSE 101–172; RESP 18–36; TEMP 36.1; O2SAT 92–100
--- NOTE | ~2021-03-29 | XR_ITS ---
EXAMINATION: XR chest 1V portable DATE: 03/29/2021 17:00 INDICATION: Sepsis protocol TECHNIQUE: frontal view of the chest was obtained. COMPARISON: Chest radiograph dated 11/27/2020 FINDINGS: No focal airspace opacities, pulmonary edema, pleural effusion or pneumothorax. The cardiomediastinal silhouette is normal. Median sternotomy wires and mediastinal surgical clips are seen, likely from p rior coronary artery bypass grafting. IMPRESSION: 1. No acute cardiopulmonary disease. Reviewed, dictated and finalized at location A. PRESS OPERATOR
--- NOTE | 2021-03-29 13:38 | ECG_ITS ---
Measurements Intervals [place] Rate: 145 P: NH: 0 QRS: -11 QRSD: 89 T: 240 QT: 304 QTc: 474 Interpretive Statements ATRIAL FIBRILLATION WITH RAPID VENTRICULAR RESPONSE FREQUENT VENTRICULAR PREMATURE COMPLEXES EARLY PRECORDIAL R/S TRANSITION LOW QRS VOLTAGE IN LIMB LEADS ST-T WAVE ABNORMALITY IN ANTEROLATERAL LEADS- CONSIDER ISCHEMIA BASELINE WANDER- II, III ABNORMAL ECG Electronically Signed On 03-29-2021 16:10:19 PLAN COORDINATOR by Peter Cardoza D.O.
--- NOTE | 2021-03-29 13:39 | ED.GENADULT ---
HPI - General Adult General Chief complaint: Unspecified Stated complaint: Failure to thrive Time Seen by Provider: 03/29/21 13:33 Source: family (Son) Mode of arrival: EMS Limitations: dementia History of Present Illness HPI narrative: Patient is an 85-year-old male brought in by EMS from a local group home due to not eating or drinking for the past 3 days. Son is at bedside and states that his father looks like he lost a lot of weight. According to son he has not been able to see his father for the past 3 weeks due to Covid restrictions at the group home. Patient wheelchair bound, nonambulatory, history of dementia. Patient is a very poor historian. Related Data Allergies Allergy/AdvReac Type Severity Reaction Status Date / Time Penicillins Allergy Unknown unknown Verified 01/30/21 10:12 sulfanilamide Allergy Unknown Unknown Verified 01/30/21 10:12 nitrofurantoin AdvReac Unknown Hallucinati Verified 01/30/21 10:12 ng Review of Systems Review of Systems: ROS unobtainable: Yes other (Dementia) [facility] Past Medical History Medical History BMI 32.0-32.9,adult Chronic anemia Coronary artery disease Status post 2 vessel CABG in 1997. Degenerative arthritis of knee, bilateral Degenerative joint disease of knee Essential hypertension Fracture of thumb, right, closed Frequent falls Frequent urinary tract infections On prophylactic Bactrim q.h.s. Gait instability Gastroesophageal reflux disease Hearing loss Hyperlipidemia Nephrolithiasis Osteoarthritis Osteoarthritis of right knee Overactive bladder Primary osteoarthritis of both knees Shingles Type 2 diabetes mellitus Hemoglobin A1c was 6.2% in July 2019. Surgical History Surgical History History of coronary artery bypass graft Two vessel CABG in 1997. Status post tendon repair Family History Family History Mother Family history of malignant neoplasm Sibling Family history of diabetes mellitus in first degree relative Father Family history of coronary artery disease Other Diabetes mellitus Social History Social History Social History: Surrogate decision maker: Esha Story, daughter. Code status: Full code. Smoking packs per day: 1.5 Smoking cigarettes per day: 30.0 Years smoked: 30 Smoking pack-years: 45.00 Tobacco type: cigarettes Second hand tobacco smoke exposure: No Smoking end date: 02/23/77 Alcohol intake: unknown Substance use: unknown Substance use type: does not use Additional living arrangements comments: Resides in [place] with his daughter and granddaughter. 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 Gender identity (if verbalized by the patient): Male Sexual Orientation (if Verbalized by the Patient): Straight or Heterosexual Spiritual care concerns: No Exam Const: General: alert, awake, confusion and ill appearing Nutritional Appearance: thin Other: Frail HENMT: Head: normal to inspection, normocephalic and atraumatic Ears: hearing grossly normal bilaterally, TM normal on the right and TM normal on the left General nose exam: Normal external nose present, Normal nares present and No nasal discharge present Face and sinus: normal facial exam Mouth: Yes lip normal, Yes tongue normal, Yes oropharynx normal and Yes dry mucous membranes Throat: posterior oropharynx normal, tonsils normal and uvula midline Eyes: General: appearance normal, both eyes and all related structures Pupils: Equal, round and reactive pupils present EOM: EOMs intact bilaterally Neck: Neck: normal visual inspection, full ROM, no lymphadenopathy and no meningeal signs Chest: Chest palpation & inspection: normal inspection
[2021-03-29 14:18] LABS: Basophils Percent Auto 0.1 % (0.2-1.2); Hematocrit 39.4 % (42.0-52.0); Immature Granulocyte Absolute 0.54 K/mm3 (0.00-0.031); Immature Granulocyte Percent A 2.4 % (0-0.5); Lymphocytes Absolute Auto 0.55 K/mm3 (0.9-3.2); Lymphocytes Percent Auto 2.4 % (18.3-44.2); Mean Corpuscular Hemoglobin 27.5 pg (26-34); Mean Corpuscular Volume 83.5 fl (80-100); Monocytes Absolute Auto 0.6 K/mm3 (0.1-0.6); Monocytes Percent Auto 2.8 % (2.6-8.5); Neutrophils Absolute Auto 21.1 K/mm3 (1.3-6.7); Neutrophils Percent Auto 92.3 % (45.5-73.1); Platelet Count Result 365 k/mm3 (150-375); Red Blood Count 4.72 M/mm3 (4.6-6.20); Red Cell Distribution Width 17.4 % (11.5-14.5); White Blood Count 22.8 K/mm3 (4.5-10.0)
[2021-03-29 14:29] LABS: INR 1.2; Partial Thromboplastin Time 29.6 SECONDS (22.3-36.8)
[2021-03-29 14:33] LABS: Platelet Estimate Adequate (Adequate)
[2021-03-29 14:34] LABS: Burr Cells 1+ (NORMAL); Ovalocytes 1+ (NORMAL)
[2021-03-29 14:39] LABS: Add Urine Microscopic? YES; Appearance Urine Turbid (Clear); Bacteria Urine Trace /hpf; Bilirubin Urine Negative (Negative); Blood Urine 1+ (Negative); Color Urine Yellow (Yellow); Glucose Urine UA Negative (Negative); Ketones Urine Negative (Negative); Leukocyte Esterase Ur 3+ LEU/UL (Negative); Nitrate Urine Negative (Negative); Protein Urine 2+ mg/dL (Negative); Specific Grav Ur 1.021 (1.001-1.035); Squamous Epithelial Cell Urine Few /hpf (Few); WBC Clumps Urine Present /HPF; WBC Urine >75 /hpf
[2021-03-29 14:47] LABS: Lactic Acid Reflex 4.2 mmol/L (0.7-2.1)
[2021-03-29 15:05] LABS: Albumin Level 2.5 g/dL (3.5-5.1); Alkaline Phosphatase 147 U/L (38-126); Anion Gap 7 mmol/L (8-16); Aspartate Amino Transferase 31 U/L (17-59); Bilirubin,Total 1.5 mg/dL (0.2-1.3); Blood Urea Nitrogen 36 mg/dL (9-20); Calcium 6.8 mg/dL (8.4-10.2); Carbon Dioxide 30 mmol/L (22-30); Chloride 102 mmol/L (98-107); Estimated CRCL calculation 29 ml/min; Estimated Glomerular Filt Rate 48; Glucose 142 mg/dL (65-110); Potassium 2.4 mmol/L (3.4-5.0); Sodium 139 mmol/L (137-145)
[2021-03-29 15:09] LABS: Alanine Aminotransferase 37 U/L (4-50)
[2021-03-29 16:17] LABS: SARS-CoV-2 RNA PCR Positive
--- NOTE | 2021-03-29 16:53 | ED.GENADULT ---
HPI - General Adult General Chief complaint: Unspecified Stated complaint: Failure to thrive Time Seen by Provider: 03/29/21 13:33 Source: family (Son) Mode of arrival: EMS Limitations: dementia Related Data Allergies Allergy/AdvReac Type Severity Reaction Status Date / Time Penicillins Allergy Unknown unknown Verified 01/30/21 10:12 sulfanilamide Allergy Unknown Unknown Verified 01/30/21 10:12 nitrofurantoin AdvReac Unknown Hallucinati Verified 01/30/21 10:12 ng [facility] Past Medical History Medical History BMI 32.0-32.9,adult Chronic anemia Coronary artery disease Status post 2 vessel CABG in 1997. Degenerative arthritis of knee, bilateral Degenerative joint disease of knee Essential hypertension Fracture of thumb, right, closed Frequent falls Frequent urinary tract infections On prophylactic Bactrim q.h.s. Gait instability Gastroesophageal reflux disease Hearing loss Hyperlipidemia Nephrolithiasis Osteoarthritis Osteoarthritis of right knee Overactive bladder Primary osteoarthritis of both knees Shingles Type 2 diabetes mellitus Hemoglobin A1c was 6.2% in July 2019. Surgical History Surgical History History of coronary artery bypass graft Two vessel CABG in 1997. Status post tendon repair Family History Family History Mother Family history of malignant neoplasm Sibling Family history of diabetes mellitus in first degree relative Father Family history of coronary artery disease Other Diabetes mellitus Social History Social History Social History: Surrogate decision maker: Esha Story, daughter. Code status: Full code. Smoking packs per day: 1.5 Smoking cigarettes per day: 30.0 Years smoked: 30 Smoking pack-years: 45.00 Tobacco type: cigarettes Second hand tobacco smoke exposure: No Smoking end date: 02/23/77 Alcohol intake: unknown Substance use: unknown Substance use type: does not use Additional living arrangements comments: Resides in [place] with his daughter and granddaughter. 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 Gender identity (if verbalized by the patient): Male Sexual Orientation (if Verbalized by the Patient): Straight or Heterosexual Spiritual care concerns: No Course Vital Signs Vital signs: Vital Signs Temperature 36.1 C L 03/29/21 13:28 Pulse Rate 156 H 03/29/21 13:28 Respiratory Rate 24 H 03/29/21 13:28 Pulse Oximetry 93 03/29/21 13:28 Temperature 36.1 C L 03/29/21 13:28 Pulse Rate 131 H 03/29/21 15:00 Respiratory Rate 22 H 03/29/21 15:00 Blood Pressure 102/62 03/29/21 15:00 Pulse Oximetry 95 03/29/21 15:00 Medical Decision Making Vital Signs Vital Signs: Vital Signs Temperature 36.1 C L 03/29/21 13:28 Pulse Rate 156 H 03/29/21 13:28 Respiratory Rate 24 H 03/29/21 13:28 Pulse Oximetry 93 03/29/21 13:28 Temperature 36.1 C L 03/29/21 13:28 Pulse Rate 131 H 03/29/21 15:00 Respiratory Rate 22 H 03/29/21 15:00 Blood Pressure 102/62 03/29/21 15:00 Pulse Oximetry 95 03/29/21 15:00 Lab Data Result diagrams: 03/29/21 13:53 03/29/21 13:55 Labs: Lab Results 03/29/21 03/29/21 03/29/21 Range/Units 13:53 13:53 13:53 WBC 22.8 H (4.5-10.0) K/mm3 RBC 4.72 (4.6-6.20) M/mm3 Hgb 13.0 L (14.0-18.0) g/dL Hct 39.4 L (42.0-52.0) % MCV 83.5 (80-100) fl MCH 27.5 (26-34) pg MCHC 33.0 (32-36) g/dl RDW 17.4 H (11.5-14.5) % Plt Count 365 (150-375) k/mm3 MPV 10.0 (7.4-10.4) fl Immature Gran % (Auto) 2.4 H (0-0.5) % Neut % (Auto) 92.3 H (45.5-73.1) % Lymph % (Auto) 2.4 L (18.3-44.2) % [place]
[2021-03-29 17:15] LABS: Reflex Lactic Acid Yes or No Add Lactic
[2021-03-29] MEDS: LACTATED RINGERS 1,000 ML 999 ML IV CONT (17:30)
[2021-03-29] MEDS: KCL 20 MEQ/SW 100 ML 100 ML 50 MEQ IVPB (17:31)
[2021-03-29 17:43] LABS: Lactic Acid 3.1 mmol/L (0.7-2.1)
[2021-03-29] MEDS: dilTIAZem HCl INJ 25 MG/5 ML VIAL 10 MG IV PUSH (17:47)
[2021-03-29] MEDS: ONDANSETRON INJ 4 MG/2 ML VIAL IV PUSH (17:59)
[2021-03-29] MEDS: LORazepam INJ (*CRX) 2 MG/ML VIAL IV PUSH (18:17)
[2021-03-29] MEDS: dilTIAZem 100 MG/100 ML 100 MG/100 ML BAG IV CONT (19:10)
--- NOTE | 2021-03-29 20:24 | PC.NURSE ---
Pt is confused, does not respond to assessment questions, pt only moans and begins to hit RN while attempting to provide care for him. Pt flings arms to remove medical equipment, removes sheets, does not follow directions.
[2021-03-29] MEDS: MORPHINE SULFATE (*CRX) 2 MG/ML INJ IV PUSH (20:53)
--- NOTE | 2021-03-29 21:48 | PC.NURSE ---
Assumed care of pt at this time. Pt noted to have removed IV access . Cleaned of bladder and bowel incontinence Noted to have breakdown to buttock area. Pt reportedly was made DNR this afternoon by family. Pt is alert x 0, restless, grunting.
--- NOTE | 2021-03-29 22:37 | PC.NURSE ---
Family at bedside at this time.
[2021-03-29] MEDS: MORPHINE SULFATE (*CRX) 4 MG/ML INJ IV PUSH (22:52)
--- NOTE | 2021-03-29 22:56 | PC.NURSE ---
Spoke with hospitalist about patients condition. Orders given to give Morphine as IM and attempt IV access. Pt family aware and agreeable to plan.
--- NOTE | 2021-03-30 01:10 | PM.IMHP ---
H&P: HPI History of Present Illness Date/Time: 03/30/21 01:10 Chief Complaint: Altered mental status Narrative: This is an 85-year-old patient group home resident past medical history significant for coronary artery disease, coronary artery bypass graft, advanced dementia, atrial fibrillation, type 2 diabetes mellitus, GERD, chronic constipation. Patient was brought from the group home due to staff concerns as the patient was in a eating or drinking. In emergency room patient was found to have atrial fibrillation with rapid ventricular response, hypotensive, mineral workup was significant for urine with significant wbc's, a lactic acid was elevated, patient is unable to give any history due to his dementia as well as acute illness. However because of patient's failure to thrive and in view of his deteriorated health upon discussion with the family it was decided to make the patient comfort care measures only and hospice consult has been placed. Patient is now being admitted to regular medical floor and hospice admission will follow. Review of Systems Review of Systems: ROS unobtainable: Yes unobtainable due to medical condition and unobtainable due to mental status PMFSH Past Medical History Medical History BMI 32.0-32.9,adult Chronic anemia Coronary artery disease Status post 2 vessel CABG in 1997. Degenerative arthritis of knee, bilateral Degenerative joint disease of knee Essential hypertension Fracture of thumb, right, closed Frequent falls Frequent urinary tract infections On prophylactic Bactrim q.h.s. Gait instability Gastroesophageal reflux disease Hearing loss Hyperlipidemia Nephrolithiasis Osteoarthritis Osteoarthritis of right knee Overactive bladder Primary osteoarthritis of both knees Shingles Type 2 diabetes mellitus Hemoglobin A1c was 6.2% in July 2019. Surgical History Surgical History History of coronary artery bypass graft Two vessel CABG in 1997. Status post tendon repair Family History Family History Mother Family history of malignant neoplasm Sibling Family history of diabetes mellitus in first degree relative Father Family history of coronary artery disease Other Diabetes mellitus Social History Social History Social History: Surrogate decision maker: Esha Story, daughter. Code status: Full code. Smoking packs per day: 1.5 Smoking cigarettes per day: 30.0 Years smoked: 30 Smoking pack-years: 45.00 Tobacco type: cigarettes Second hand tobacco smoke exposure: No Smoking end date: 02/23/77 Alcohol intake: unknown Substance use: unknown Substance use type: does not use Additional living arrangements comments: Resides in [place] with his daughter and granddaughter. 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 Gender identity (if verbalized by the patient): Male Sexual Orientation (if Verbalized by the Patient): Straight or Heterosexual Spiritual care concerns: No Meds Home Medications and Allergies Home Medications Medication Instructions Recorded Confirmed Type acetaminophen 325 mg tablet 650 mg PO Q6H PRN #240 tablet 11/15/20 03/29/21 Rx atenolol 50 mg tablet 50 mg PO DAILY #90 tablet 11/15/20 03/29/21 Rx atorvastatin 20 mg tablet 20 mg PO DAILY #90 tablet 11/15/20 03/29/21 Rx cholecalciferol (vitamin D3) 1,250 1,250 mcg PO WEEKLY #12 cap 11/15/20 01/30/21 Rx mcg (50,000 unit) capsule cyclobenzaprine 5 mg tablet 5 mg PO QHS PRN #30 tablet 11/15/20 03/29/21 Rx diltiazem HCl 120 mg 120 mg PO DAILY #30 cap 11/15/20 03/29/21 Rx capsule,extended release 24 hr, controlled docusate sodium 100 mg capsule 100 mg PO BID PRN #60 cap 11/15/20
[2021-03-30 01:17] VITALS: BP 99/55; PULSE 103; RESP 24; O2SAT 97
[2021-03-30 01:37] VITALS: BP 95/66; PULSE 122; RESP 18; O2SAT 100
--- NOTE | 2021-03-30 01:37 | PC.NURSE ---
Pt repositioned in bed.
[2021-03-30] MEDS: LACTATED RINGERS 1,000 ML 30 ML IV CONT (02:23)
[2021-03-30 02:43] VITALS: BP 99/55; PULSE 112; RESP 22; O2SAT 99
--- NOTE | 2021-03-30 03:00 | ADMGEN ---
This patient, Jose Angel Story Jr., was admitted to Medical Room 349-01. Patient/family oriented to hospital policies and general routines including ID bracelet, bed and alarms, visiting hours, pain management, procedures, bathroom and other care routines, personal items, smoking policy, room service/diet, and visiting hours. Information on how to activate the Rapid Response Team has been discussed. Patient/Family are encouraged to report perceived risks to care and to ask questions if they do not understand what they are told or what they should do.
[2021-03-30 03:23] VITALS: BMI 21.4
[2021-03-30 03:24] VITALS: BP 122/104; PULSE 58; RESP 20; TEMP 36.1; O2SAT 98
[2021-03-30] MEDS: LACTATED RINGERS 1,000 ML 90 ML IV CONT (04:25)
[2021-03-30] MEDS: MORPHINE SULFATE ORAL CONC SOL (*CRX) 10 MG/0.5 ML SYRINGE 5 MG PO ×2 (06:02→10:40)
[2021-03-30] MEDS: LORazepam (*CRX) 2 MG/ML 30 ML ORAL CONCENTRATE 1 MG SUBLINGUAL (11:25)
--- NOTE | 2021-03-30 13:24 | PM.IMPN ---
Progress Note: A&P Assessment and Plan (1) Need for comfort care: Status: Acute Assessment and Plan: Given patient's progressive deterioration health, family decided to proceed with comfort care measures. Awaiting hospice consultation. Patient is resting comfortably. Analgesics and anxiolytics available as needed. (2) Severe sepsis: Code(s): A41.9 - Sepsis, unspecified organism; R65.20 - Severe sepsis without septic shock Status: Acute Assessment and Plan: No longer receiving treatment per family wishes (3) Urinary tract infection: Qualifiers: Hematuria presence: without hematuria Urinary tract infection type: site unspecified Qualified Code(s): N39.0 - Urinary tract infection, site not specified Code(s): N39.0 - Urinary tract infection, site not specified Status: Acute Assessment and Plan: (4) Acute hypokalemia: Code(s): E87.6 - Hypokalemia Status: Acute Assessment and Plan: (5) Atrial fibrillation with RVR: Code(s): I48.91 - Unspecified atrial fibrillation Status: Acute Assessment and Plan: (6) COVID-19 virus infection: Code(s): U07.1 - COVID-19 Status: Acute Assessment and Plan: (7) Type 2 diabetes mellitus: Code(s): E11.9 - Type 2 diabetes mellitus without complications Status: Acute Assessment and Plan: Subjective Date/time seen: 03/30/21 13:24 Interval history: Date of service: 03/30/2021 Jose Angel Story is an 85-year-old male with a history of hypertension, coronary artery disease, type 2 diabetes mellitus, and frequent falls is seen in follow-up for comfort care support. Patient came to ER poorly responsive from long-term found to be in atrial fibrillation with rapid ventricular response and was hypotensive. Patient's family ultimately opted for comfort care and are awaiting hospice consultation. The patient is resting in bed. He does not awake to verbal or physical stimuli. He does occasionally shouted out, possibly in pain or out of agitation/frustration, though he is not restless and does appear to be comfortable. Revisited the patient later this afternoon and his son and grandson are at the bedside. Patient appears comfortable. Provided update to son and grandson. All questions answered. Review of Systems Review of Systems: ROS unobtainable: Yes unobtainable due to mental status Exam Narrative: General: Frail, chronically ill-appearing 85-year-old male, lying supine in bed, comfortable, NARD Neuro: Not arousable, occasionally moves the right upper extremity HEENMT: normocephalic, atraumatic Respiratory: Clear to auscultation anteriorly, noisy upper airway breathing Cardio: regular rate, regular rhythm Abdomen: nondistended, soft, nontender to palpation Extremities: Bilateral lower extremities are cool to palpation and slightly mottled Objective Data Vital Signs Vital Signs: Vital Signs - 24 hr 03/29/21 13:28 03/29/21 13:38 03/29/21 15:00 Temperature 96.9 F L Pulse Rate 156 H 158 H 131 H Respiratory Rate 24 H 18 22 H Blood Pressure 122/77 102/62 Pulse Oximetry 93 95 03/29/21 17:48 03/29/21 18:20 03/29/21 19:10 Temperature Pulse Rate 172 H 171 H Respiratory Rate 18 Blood Pressure 104/84 Pulse Oximetry 97 03/29/21 21:45 03/29/21 22:38 03/30/21 01:17 Temperature Pulse Rate 149 H 101 H 103 H Respiratory Rate 36 H 24 H 24 H Blood Pressure 103/55 L 94/46 L 99/55 L Pulse Oximetry 92 100 97 03/30/21 01:37 03/30/21 02:43 03/30/21 03:24 Temperature 97.0 F L Pulse Rate 122 H 112 H 58 L Respiratory Rate 18 22 H 20 Blood Pressure 95/66 L 99/55 L 122/104 H Pulse Oximetry 100 99 98 Intake/Output Intake/Output: Intake & Output 03/27/21 03/28/21 03/29/21 03/30/21 23:59 23:59 23:59 23:59 Intake Total 2150 100 Output Total 20 Balance 2130 100 Meds/Results Medi
[2021-03-30] MEDS: MORPHINE SULFATE ORAL CONC SOL (*CRX) 10 MG/0.5 ML SYRINGE 2 MG PO (14:32)
[2021-03-30 15:18] VITALS: RESP 24; TEMP 37.4
--- NOTE | 2021-03-30 17:00 | PM.DS ---
DS: Admitting Diagnosis Discharge Date 03/30/21 Admitting Diagnosis Severe sepsis DS: Discharge Diagnosis Discharge Diagnosis (1) Need for comfort care: Status: Acute Assessment and Plan: Given patient's progressive deterioration health, family decided to proceed with comfort care measures. Patient resting comfortably. Analgesics and anxiolytics available as needed. Patient discharged to inpatient hospice on 03/30/21. (2) Severe sepsis: Code(s): A41.9 - Sepsis, unspecified organism; R65.20 - Severe sepsis without septic shock Status: Acute Assessment and Plan: No longer receiving treatment per family wishes (3) Urinary tract infection: Qualifiers: Hematuria presence: without hematuria Urinary tract infection type: site unspecified Qualified Code(s): N39.0 - Urinary tract infection, site not specified Code(s): N39.0 - Urinary tract infection, site not specified Status: Acute Assessment and Plan: (4) Acute hypokalemia: Code(s): E87.6 - Hypokalemia Status: Acute Assessment and Plan: (5) Atrial fibrillation with RVR: Code(s): I48.91 - Unspecified atrial fibrillation Status: Acute Assessment and Plan: (6) COVID-19 virus infection: Code(s): U07.1 - COVID-19 Status: Acute Assessment and Plan: (7) Type 2 diabetes mellitus: Code(s): E11.9 - Type 2 diabetes mellitus without complications Status: Acute Assessment and Plan: DS: Summary Hospital Course Hospital Course: Date of admission: 03/29/21 Date of discharge: 03/30/21 Jose Angel Story is an 85-year-old male with a history of hypertension, coronary artery disease, type 2 diabetes mellitus, and frequent falls who presented to the emergency department on 03/29/21 with decreased level of consciousness. Following discussion with family, ultimately opted for comfort care and he was admitted to the hospitalist service. He was discharged to inpatient hospice on 03/30/21. Time Spent with Patient Time attestation: Total time spent providing and/or coordinating discharge services: Exam Narrative: General: Frail, chronically ill-appearing 85-year-old male, lying supine in bed, comfortable, NARD Neuro: Not arousable, occasionally moves the right upper extremity HEENMT: normocephalic, atraumatic Respiratory: Clear to auscultation anteriorly, noisy upper airway breathing Cardio: regular rate, regular rhythm Abdomen: nondistended, soft, nontender to palpation Extremities: Bilateral lower extremities are cool to palpation and slightly mottled DS: Data Data Completed and Pending Labs on day of discharge: Preliminary micro results at discharge 03/29/21 13:58 Blood Culture - Preliminary Blood 03/29/21 14:51 Blood Culture - Preliminary Blood Discharge Plan Discharge Discharging Clinician: Codi Canada Patient Disposition: Hospice - Medical Facility Stand Alone Forms: General Discharge Information Discharge Medications: No Action Prostat Tablet 1 tablet PO BID RF: 0 ascorbic acid (vitamin C) 500 mg Tablet 500 mg PO BID RF: 0 Adult Multivitamin with Iron 18 mg iron-25 mcg Tablet 1 tablet PO DAILY RF: 0 hydrocodone-acetaminophen [[place]] 5-325 mg Tablet 1 tablet PO BID PRN (Reason: Pain (Scale Score 4-6)) RF: 0 loperamide [Imodium A-D] 2 mg Tablet 2 mg PO QID PRN (Reason: Diarrhea) RF: 0 magnesium hydroxide 400 mg/5 mL Suspension 400 mg PO DAILY PRN (Reason: Constipation) RF: 0 donepezil 5 mg tablet 10 mg PO QHS RF: 0 polyethylene glycol 3350 [Miralax] 17 gram/dose powder 17 g PO DAILY PRN (Reason: Constipation) RF: 0 atenolol 50 mg tablet 50 mg PO DAILY Qty: 90 RF: 2 omeprazole 10 mg capsule,delayed release(DR/EC) 10 mg PO DAILY Qty: 90 RF: 2 oxybutynin chloride 5 mg tablet 5 mg PO DAILY Qty: 30 RF: 2 loratadine [Cl
== END 2021-03-30 15:20 | disposition hospice, inpatient (51) | DRG 871 ==
LOC: ANHED 16:47 → ANHIMU 19:48 → ANH3MED 03-30 01:13
PROVIDERS: Admitting Provider Internal Medicine; Emergency Provider Emergency Medicine; PCP Family Medicine; Visit Provider Physician Assistant
DX: A41.9 Sepsis, unspecified organism (principal); U07.1 COVID-19; N39.0 Urinary tract infection, site not specified; I48.92 Unspecified atrial flutter; R65.20 Severe sepsis without septic shock; E87.6 Hypokalemia; I48.91 Unspecified atrial fibrillation; E11.9 Type 2 diabetes mellitus without complications; I25.10 Atherosclerotic heart disease of native coronary artery without angina pectoris; I10 Essential (primary) hypertension; R29.6 Repeated falls; F03.90 Unspecified dementia, unspecified severity, without behavioral disturbance, psychotic disturbance, mood disturbance, and anxiety; D64.9 Anemia, unspecified; K21.9 Gastro-esophageal reflux disease without esophagitis; E78.5 Hyperlipidemia, unspecified; N32.81 Overactive bladder; Z66 Do not resuscitate; R62.7 Adult failure to thrive; Z51.5 Encounter for palliative care; Z95.1 Presence of aortocoronary bypass graft; Z68.21 Body mass index [BMI] 21.0-21.9, adult
CPT/HCPCS: 36415; 71045; 80053; 81001; 83605; 85025; 85610; 85730; 87040; 87086; 87088; 93005; 96365; 99285; A9270; C9803; J0696; J2060; J2270; J2405; J3480; J7030; J7120; U0003; U0005

== ENCOUNTER 2021-03-30 14:38 | HOS | payer OTHER, SELFPAY ==
[2021-03-30 15:43] VITALS: BMI 21.4
[2021-03-30] MEDS: MORPHINE SULFATE INJ (*CRX) 50 MG in SODIUM CHLORIDE 0.9% IV 95 ML IV CONT (16:00)
[2021-03-30] MEDS: MORPHINE SULFATE (*CRX) 2 MG/ML INJ IV PUSH (16:00)
[2021-03-30] MEDS: LORazepam INJ (*CRX) 2 MG/ML VIAL 1 MG IV PUSH (16:58)
--- NOTE | 2021-03-30 17:27 | PM.IMHP ---
H&P: HPI History of Present Illness Date/Time: 03/30/21 17:27 Chief Complaint: Uncontrolled dyspnea, pain, restlessness Narrative: This unfortunate 85-year-old gentleman has a history of advanced dementia. He was sent to the emergency department on March 29 because he was not eating and drinking. There was found to have a urinary tract infection with severe sepsis with hypotension and acute kidney injury and metabolic encephalopathy. He was crying out of discomfort and restless. Because of his advanced age, the severity of his illness, his baseline poor functional status and comorbidities, his family opted for inpatient hospice care. Review of Systems Review of Systems: All systems reviewed & are unremarkable except as noted in HPI and below PMFSH Past Medical History Medical History (Updated 03/30/21 @ 17:32 by Steffen Cook MD) BMI 32.0-32.9,adult Chronic anemia Coronary artery disease Status post 2 vessel CABG in 1997. Degenerative arthritis of knee, bilateral Degenerative joint disease of knee Dementia Essential hypertension Fracture of thumb, right, closed Frequent falls Frequent urinary tract infections On prophylactic Bactrim q.h.s. Gait instability Gastroesophageal reflux disease Hearing loss Hyperlipidemia Nephrolithiasis Osteoarthritis Osteoarthritis of right knee Overactive bladder Primary osteoarthritis of both knees Shingles Type 2 diabetes mellitus Hemoglobin A1c was 6.2% in July 2019. Surgical History Surgical History History of coronary artery bypass graft Two vessel CABG in 1997. Status post tendon repair Family History Family History Mother Family history of malignant neoplasm Sibling Family history of diabetes mellitus in first degree relative Father Family history of coronary artery disease Other Diabetes mellitus Social History Social History Social History: Surrogate decision maker: Esha Story, daughter. Code status: Full code. Smoking packs per day: 1.5 Smoking cigarettes per day: 30.0 Years smoked: 30 Smoking pack-years: 45.00 Smoking status: Former smoker Tobacco type: cigarettes Second hand tobacco smoke exposure: No Smoking end date: 02/23/77 Alcohol intake: unknown Substance use: unknown Substance use type: does not use Additional living arrangements comments: Resides in [place] with his daughter and granddaughter. 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 Gender identity (if verbalized by the patient): Male Sexual Orientation (if Verbalized by the Patient): Straight or Heterosexual Spiritual care concerns: No Meds Home Medications and Allergies Home Medications Medication Instructions Recorded Confirmed Type acetaminophen 325 mg tablet 650 mg PO Q6H PRN #240 tablet 11/15/20 03/30/21 Rx atenolol 50 mg tablet 50 mg PO DAILY #90 tablet 11/15/20 03/30/21 Rx atorvastatin 20 mg tablet 20 mg PO DAILY #90 tablet 11/15/20 03/30/21 Rx cyclobenzaprine 5 mg tablet 5 mg PO QHS PRN #30 tablet 11/15/20 03/30/21 Rx diltiazem HCl 120 mg 120 mg PO DAILY #30 cap 11/15/20 03/30/21 Rx capsule,extended release 24 hr, controlled loratadine 10 mg tablet 10 mg PO DAILY #90 tablet 11/15/20 03/30/21 Rx mecobalamin (vitamin B12) 5,000 5,000 mcg PO DAILY #30 tablet 11/15/20 03/30/21 Rx mcg disintegrating tablet metformin 500 mg tablet 500 mg PO BID #180 tablet 11/15/20 03/30/21 Rx omeprazole 10 mg capsule,delayed 10 mg PO DAILY #90 cap 11/15/20 03/30/21 Rx release oxybutynin chloride 5 mg tablet 5 mg PO DAILY #30 tablet 11/15/20 03/30/21 Rx ferrous sulfate 325 mg (65 mg 325 mg PO BID #180 tablet 12/26/20 03/30/21 Rx iron) tablet,delayed release aspirin 81 mg tablet,delayed 81 mg PO DAILY #
[2021-03-30 19:02] VITALS: BP 90/54; PULSE 84; RESP 24; TEMP 37.4; O2SAT 70
--- NOTE | 2021-03-30 22:17 | PC.NURSE ---
Kasi, son, here to pay last respects to father. Son removed all personal artifacts from patient.
--- NOTE | 2021-03-31 08:47 | P.DN_ITS ---
Discharge Summary Date and Time Date of : 03/30/21 Time of : 20:30 Provider Pronounced By: Padmini Judd RN Probable Cause of Probable Cause of : Sepsis due to urinary tract infection Summary Hospital Course: Admitted inpatient hospice service due to uncontrolled dyspnea restlessness and discomfort. Medications titrated to comfort. Patient peacefully. Additional Data Confirmation of as documented by pronouncing clinician: Pupillary Reflex, Palpable Pulses, Response to Stimuli, Heart Tones and Breath Sounds Name of Provider Notified: Dr. Steffen Cook Time Provider Notified: 20:52 Provider Requests Autopsy: No Family Requests Autopsy: No Party Plan Sales Host/Hostess Notified: Yes Date [facility] Notified of : 03/30/21 Time [facility] Notified of : 20:54
== END 2021-03-30 20:30 | disposition expired | DRG 951 ==
LOC: ANH3MED 04-01 15:06
PROVIDERS: Admitting Provider Internal Medicine; PCP Family Medicine; Visit Provider Internal Medicine
DX: Z51.5 Encounter for palliative care (principal); A41.9 Sepsis, unspecified organism; R65.20 Severe sepsis without septic shock; N39.0 Urinary tract infection, site not specified; I25.810 Atherosclerosis of coronary artery bypass graft(s) without angina pectoris; F03.90 Unspecified dementia, unspecified severity, without behavioral disturbance, psychotic disturbance, mood disturbance, and anxiety; D64.9 Anemia, unspecified; M17.0 Bilateral primary osteoarthritis of knee; I48.91 Unspecified atrial fibrillation; K21.9 Gastro-esophageal reflux disease without esophagitis; E78.5 Hyperlipidemia, unspecified; N32.81 Overactive bladder; I10 Essential (primary) hypertension; I87.2 Venous insufficiency (chronic) (peripheral); E11.29 Type 2 diabetes mellitus with other diabetic kidney complication; R80.9 Proteinuria, unspecified; Z87.891 Personal history of nicotine dependence; Z95.1 Presence of aortocoronary bypass graft
CPT/HCPCS: J2060; J2270